=== PATIENT | male | born 1935 | race Caucasian/White ===

== ENCOUNTER 2017-02-15 07:51 | Observation (INO) | payer MEDICARE ==
[~2017-02-15] VITALS: Ht 175.3 cm; Wt 80.7 kg
[~2017-02-15 07:51] MED LIST: ACET-2766 PO; ALBU2.5V4 INH; ALBU8.5H2 INHALATION; ASCO1TAB12 PO; ASPI-973 PO; CALC600T12 PO; CHOL10008 PO; COLC0.6C3 PO; FINA5TAB9 PO; FLUT16SP NS; FOLI0.4T2 PO; HYDR200T PO; LACT1CAP65 PO; LEFL20TA18 PO; LEVO25TA5 PO; LOSA25TA21 PO; MAGN400T4 PO; MUPI1OIN6 TP; MYCO500T3 PO; NYST1POW23 MC; OMEP20CA11 PO; PRD5T PO; PRIM50TA PO; TAMS0.4C98 PO; TIOT4MIS5 IH
[2017-02-15 07:56] VITALS: BP 146/73; PULSE 94; RESP 15; O2SAT 93
--- NOTE | 2017-02-15 07:58 | ED.REPORT ---
HPI-Extremity Problem Lower Date of Service Feb 15, 2017 ED Provider: Nursing Notes Stated Complaint: LEFT ANKLE PAIN Chief Complaint: Extremity Trauma Allergies: Coded Allergies: bacitracin (Unverified Allergy, Unknown, 07/11/16) neomycin (Unverified Allergy, Unknown, 07/11/16) polymyxin B (Unverified Allergy, Unknown, 07/11/16) niacin (Verified Adverse Reaction, Severe, RASH, 07/11/16) Uncoded Allergies: DUST (Allergy, Unknown, 12/03/04) Scheduled Albuterol Neb Soln (Albuterol Neb Soln) 2.5 Mg/3 Ml Vial.neb 3 ML INH BID Ascorbate Calcium/Bioflavonoid (Seda-C 500 mg Tablet) 1 Each Tablet 1 EACH PO DAILY Aspirin (Aspirin) 81 Mg Tablet 81 MG PO HS Calcium Carbonate (Calcium) 600 Mg Tablet 600 MG PO BID Cholecalciferol (Vitamin D3) (Vitamin D3) 1,000 Unit Tab.chew 1,000 UNIT PO DAILY Colchicine (Colchicine) 0.6 Mg Capsule 0.6 MG PO DAILY Finasteride (Finasteride) 5 Mg Tablet 5 MG PO DAILY Fluticasone Propionate (Fluticasone Propionate Nasal) 16 Gm [place].susp 1 SPRAY NS DAILY Folic Acid (Folic Acid) 0.4 Mg Tablet 0.4 MG PO DAILY Hydroxychloroquine Sulfate (Plaquenil) 200 Mg Tablet 200 MG PO BID Hydroxychloroquine Sulfate (Plaquenil) 200 Mg Tablet 200 MG PO BID Leflunomide (Leflunomide) 20 Mg Tablet 20 MG PO DAILY Levothyroxine (Levothyroxine) 25 Mcg Tablet 25 MCG PO DAILY Losartan Potassium (Losartan Potassium) 25 Mg Tablet 25 MG PO DAILY Magnesium Oxide (Magnesium Oxide) 400 Mg Tablet 800 MG PO HS Mupirocin (Mupirocin) 2 % Oin.pf.benji 1 GM TP bid x 10 days Mycophenolate Mofetil (Mycophenolate Mofetil) 500 Mg Tablet 1,000 MG PO BID Nystatin (Nystatin) 1 Each Powder.ea. 1 EACH MC BID Omeprazole (Omeprazole) 20 Mg Capsule.dr 20 MG PO DAILY Prednisone (PredniSONE) 5 Mg Tab 10 MG PO DAILY Primidone (Primidone) 50 Mg Tablet 50 MG PO HS Tamsulosin (Flomax) 0.4 Mg Capsule 0.4 MG PO DAILY Tiotropium [place] (Spiriva Respimat) 1.25 Mcg/Actuation Mist.inhal 2 PUFF IH DAILY Scheduled PRN Acetaminophen (Tylenol Arthritis) 650 Mg Tablet.er 1,300 MG PO q8 hours PRN PRN For Pain Albuterol HFA (Proair HFA) 8.5 Gm Hfa.aer.ad 1-2 PUFFS INHALATION Q4H PRN PRN For Shortness of Breath Lactobacillus Acidophilus (Probiotic) 1 Each Capsule 1 EACH PO DAILY PRN PRN prn General Time Seen by MD: 07:58 Past Medical History Past Medical History 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 He is followed on an every 6 month basis to confirm stability. Rheumatoid arthritis. Bronchiectasis followed by Dr. Orozco. History of dyslipidemia. Vascular stenosis in lower extremities. Actinic keratosis. Leukocytoclastic vasculitis. JOANA on CPAP. Duanes syndrome. skin cancer. Reports: COPD, GERD, Hyperlipidemia Past Surgical History Shoulder repair Mohs surgery Reports: Cataract surgery, Cholecystectomy Reports: Knee replacement Smoking History Never Smoker Social History Alcohol Use: Denies alcohol use Other Social History: Good social support, , Local resident Ambulatory Status Independent Physical Exam Initial Vital Signs Vital Signs (First) Date Time Temp Pulse Resp B/P Pulse Ox O2 Delivery O2 Flow Rate FiO2 02/15/17 07:56 36.9 94 15 146/73 93 Room Air Discharge & Departure Referrals: Leelee Bergeron MD (PCP) Jong Nava MD Feb 15, 2017 07:58
[2017-02-15] MEDS ORDERED: predniSONE 10 mg Tablet PO ONE (08:15)
[2017-02-15] MEDS ORDERED: HYDROcodone-APAP 5-325 mg Tablet PO ONE (08:15)
[2017-02-15 09:07] VITALS: BP 145/63; PULSE 84; RESP 11; O2SAT 93
[2017-02-15] MEDS ORDERED: predniSONE 20 mg Tablet PO ONE (11:00)
[2017-02-15 14:28] VITALS: BP 152/68; PULSE 88; RESP 15; O2SAT 96
--- NOTE | 2017-02-15 15:06 | ED.REPORT ---
HPI-Extremity Problem Lower Date of Service Feb 15, 2017 ED Provider: Jong Nava MD Chris Rubio is an 81-year-old gentleman history of rheumatoid arthritis, peripheral vascular disease, osteoporosis, who presents to the [facility] emergency department via EMS for left ankle pain, increasing severity over the past 24 hours. He states this is similar to previous rheumatoid arthritis flares, which happen occasionally. He recently had a change in his oral prednisone from 10 mg to 7.5mg. He denies any trauma, and is currently unable to bear weight on the ankle. He has not taken anything for the pain. He describes it is extremely painful, citing how he has never come to the hospital for an RA flare before, but this is become unbearable. He states he always feels weak, no new headaches out of the ordinary, no changes in vision, no lightheadedness, dizziness, chest pain, no shortness of breath, no nausea vomiting or diarrhea. No new rashes. No dysuria, states he has the type of catheter in place which allows him to urinate. Nursing Notes Stated Complaint: LEFT ANKLE PAIN Chief Complaint: Extremity Trauma Nursing Notes Reviewed: Yes Allergies: Coded Allergies: bacitracin (Unverified Allergy, Unknown, 07/11/16) neomycin (Unverified Allergy, Unknown, 07/11/16) polymyxin B (Unverified Allergy, Unknown, 07/11/16) niacin (Verified Adverse Reaction, Severe, RASH, 07/11/16) Uncoded Allergies: DUST (Allergy, Unknown, 12/03/04) Scheduled Albuterol Neb Soln (Albuterol Neb Soln) 2.5 Mg/3 Ml Vial.neb 3 ML INH BID Ascorbate Calcium/Bioflavonoid (Seda-C 500 mg Tablet) 1 Each Tablet 1 EACH PO DAILY Aspirin (Aspirin) 81 Mg Tablet 81 MG PO HS Calcium Carbonate (Calcium) 600 Mg Tablet 600 MG PO BID Cholecalciferol (Vitamin D3) (Vitamin D3) 1,000 Unit Tab.chew 1,000 UNIT PO DAILY Colchicine (Colchicine) 0.6 Mg Capsule 0.6 MG PO DAILY Finasteride (Finasteride) 5 Mg Tablet 5 MG PO DAILY Fluticasone Propionate (Fluticasone Propionate Nasal) 16 Gm [place].susp 1 SPRAY NS DAILY Folic Acid (Folic Acid) 0.4 Mg Tablet 0.4 MG PO DAILY Hydroxychloroquine Sulfate (Plaquenil) 200 Mg Tablet 200 MG PO BID Hydroxychloroquine Sulfate (Plaquenil) 200 Mg Tablet 200 MG PO BID Leflunomide (Leflunomide) 20 Mg Tablet 20 MG PO DAILY Levothyroxine (Levothyroxine) 25 Mcg Tablet 25 MCG PO DAILY Losartan Potassium (Losartan Potassium) 25 Mg Tablet 25 MG PO DAILY Magnesium Oxide (Magnesium Oxide) 400 Mg Tablet 800 MG PO HS Mupirocin (Mupirocin) 2 % Oin.pf.benji 1 GM TP bid x 10 days Mycophenolate Mofetil (Mycophenolate Mofetil) 500 Mg Tablet 1,000 MG PO BID Nystatin (Nystatin) 1 Each Powder.ea. 1 EACH MC BID Omeprazole (Omeprazole) 20 Mg Capsule.dr 20 MG PO DAILY Prednisone (PredniSONE) 5 Mg Tab 10 MG PO DAILY Primidone (Primidone) 50 Mg Tablet 50 MG PO HS Tamsulosin (Flomax) 0.4 Mg Capsule 0.4 MG PO DAILY Tiotropium [place] (Spiriva Respimat) 1.25 Mcg/Actuation Mist.inhal 2 PUFF IH DAILY Scheduled PRN Acetaminophen (Tylenol Arthritis) 650 Mg Tablet.er 1,300 MG PO q8 hours PRN PRN For Pain Albuterol HFA (Proair HFA) 8.5 Gm Hfa.aer.ad 1-2 PUFFS INHALATION Q4H PRN PRN For Shortness of Breath Lactobacillus Acidophilus (Probiotic) 1 Each Capsule 1 EACH PO DAILY PRN PRN prn General Time Seen by MD: 07:58 Chief Complaint Other (left ankle pain) Hx Obtained From: Patient Arrived By: Ambulance Onset Occurred: Yesterday Past Medical History Past Medical History 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 He is followed on an every 6 month basis to confirm stability. Rheumatoid arthritis. Bronchiectasis followed by Dr. Orozco. History of dyslipidemia. Vascular stenosis in lower extremities. Actinic keratosis. Leukocytoclastic vasculitis. JOANA on CPAP. Duanes syndrome. skin cancer. Reports: COPD, GERD, Hyperlipidemia Past Surgical History Shoulder repair Mohs surgery Reports: Cataract surgery, Cholecystectomy Reports: Knee replacement Family History Daughter systemic lupus erythematosus, Rheumatoid arthritis, Fibromyalgia Grandmother diabetes mellitus Sister: fibromyalgia, osteoarthritis, spine degeneration, rheumatoid arthritis Smoking History Never Smoker Social History Lives at home with Alcohol Use: Denies alcohol use Other Social History: Good social support, , Local resident Ambulatory Status Independent Review of Systems Complete sys rev & neg: except as marked. Physical Exam Initial Vital Signs Vital Signs (First) Date Time Temp Pulse Resp B/P Pulse Ox O2 Delivery O2 Flow Rate FiO2 02/15/17 07:56 36.9 94 15 146/73 93 Room Air Initial VS: Reviewed General/Constitutional: Well-developed, Well-nourished Head / Eyes: Atraumatic, Normocephalic ENT: Mucous membranes moist, Conjunctiva normal, No scleral icterus Neck: Supple, Non-tender, Full range of motion Respiratory: Breath sounds normal, Clear to auscultation, No respiratory distress Left lower extremity is held in external rotation, left ankle is red, warm, not significantly swollen. Exquisitely tender to palpation circumferentially. Neurovascularly intact distal to left ankle, as well as proximal. Pain with movement passive and active. There are multiple annular lesions to the [place] pretibial area with some coalescence. There are no open wounds, no obvious deformities. Left Ankle: Positive: Erythema present, ROM reduced, Swelling present... (Mild) , Tenderness present... (Severe), Warmth present Cardiovascular: Heart sounds NL, No murmurs, No rubs Heart Rate / Rhythm: Positive: Irregular rhythm (occasional premature beat), Tachycardia Periph CV / BP Differential: Positive: Peripheral pulses 2+ Movement Abnormality: Positive: Essential tremor Gait Abnormality: Positive: Unable to walk Abdomen: Soft, Non-tender, BS normoactive, No distention Organomegaly / Mass / Hernia: Positive: Hernia is reducible, Hernia umbilical Interpretation & Diagnostics Lab Results Interpretation Test 02/15/17 14:35 Hold Purple Top Tube Received (Received) Hold Blue Top Tube Received (Received) Hold [place] Top Tube Received (Received) Re-Eval/Medical Decision Med Decision/Clinical Course Rheumatoid arthritis flare seems more likely than gout flair given history and recent change to medications. Patient was given 15 mg oral prednisone and oral 5-325mg hydrocodone-acetaminophen for inflammation and pain relief. He was given oral water to supplement treatment of his tachycardia, which responded well along with treatment of prednisone and pain medication. Dr. Acuña of rheumatology was consulted, he recommended the patient get an additional 20 mg of oral prednisone. An hour after its administration we attempted weightbearing, patient was unable to move beyond 2 person assist at bedside. Due to the global weakness patient conveys, as well as the remaining pain to his left ankle inhibiting him from ambulating independently or even with an assist device, admission was requested for further treatment of his rheumatoid arthritis flare. Additionally, social work was asked to speak with the patient and family regarding if his needs will be able to be met at home. Consultation #1: Referral / Consult Name: Nicko Acuña MD Police Guard: Will see in office, Agrees with plan Consultation #2: Referral / Consult Name: Bunny Hanks DO Consulted With: Hospitalist Requested Call at: 14:26 Call Returned at: 14:27 Police Guard: Will see patient, Agrees with plan, Accepts admit Discharge & Departure Impression: Primary Impression: Rheumatoid arthritis involving ankle Rheumatoid factor presence: unspecified presence Laterality: left Qualified Code: M06.072 - Rheumatoid arthritis without rheumatoid factor, left ankle and foot Disposition: ADMITTED TO HOSPITAL Discharge Condition All VS Reviewed: Yes Condition: Stable Referrals: Leelee Bergeron MD (PCP) Attending Statement The patient was seen and examined together with Dr. Haley on 02/15/17 and I agree with the history, exam and plan as outlined in the note above. copies to: Leelee Bergeron MD, Noah M DO Feb 15, 2017 08:15 Jong Nava MD Feb 15, 2017 15:21
--- NOTE | 2017-02-15 15:14 | PCM.HPMED ---
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 /pt state L ankle began to swell and they were using bengay without improvement. Pt no longer takes methotrexate which he had taken for years, currently taking Hydroxychloroquine. Recent illness includes UTI with ciprofloxacin whihc he hasnt taken today. Pt reports a medical urologic device called a Spanner - placed 2 wks ago and due for extraction on 02/24 - wiht improved urination. no pain or blood in urine. no current f/c/cp/sob, reports functional baseline with walker ambulation approximately 50 feet before tiring. no hx of gout, no tob/alc/ illicit rx use. does do chair exercises at baseline [facility] he did prior to sx but usually tolerates it without issues. urologist: Fany and PCP - Dr. Bergeron Review of Systems: complete ros within normal limits unless stated in HPI Allergies Coded Allergies: bacitracin (Unverified Allergy, Unknown, 07/11/16) neomycin (Unverified Allergy, Unknown, 07/11/16) polymyxin B (Unverified Allergy, Unknown, 07/11/16) niacin (Verified Adverse Reaction, Severe, RASH, 07/11/16) Uncoded Allergies: DUST (Allergy, Unknown, 12/03/04) Home Medications Scheduled Albuterol Neb Soln (Albuterol Neb Soln) 2.5 Mg/3 Ml Vial.neb 3 ML INH BID Ascorbate Calcium/Bioflavonoid (Seda-C 500 mg Tablet) 1 Each Tablet 1 EACH PO DAILY Aspirin (Aspirin) 81 Mg Tablet 81 MG PO HS Calcium Carbonate (Calcium) 600 Mg Tablet 600 MG PO BID Cholecalciferol (Vitamin D3) (Vitamin D3) 1,000 Unit Tab.chew 1,000 UNIT PO DAILY Colchicine (Colchicine) 0.6 Mg Capsule 0.6 MG PO DAILY Finasteride (Finasteride) 5 Mg Tablet 5 MG PO DAILY Fluticasone Propionate (Fluticasone Propionate Nasal) 16 Gm [place].susp 1 SPRAY NS DAILY Hydroxychloroquine Sulfate (Plaquenil) 200 Mg Tablet 200 MG PO BID Leflunomide (Leflunomide) 20 Mg Tablet 20 MG PO DAILY Levothyroxine (Levothyroxine) 25 Mcg Tablet 25 MCG PO DAILY Losartan Potassium (Losartan Potassium) 25 Mg Tablet 25 MG PO DAILY Magnesium Oxide (Magnesium Oxide) 400 Mg Tablet 800 MG PO HS Mupirocin (Mupirocin) 2 % Oin.pf.benji 1 GM TP bid x 10 days Mycophenolate Mofetil (Mycophenolate Mofetil) 500 Mg Tablet 1,000 MG PO BID Nystatin (Nystatin) 1 Each Powder.ea. 1 EACH MC BID Omeprazole (Omeprazole) 20 Mg Capsule.dr 20 MG PO DAILY Prednisone (PredniSONE) 7.5 Mg Tab 10 MG PO DAILY Primidone (Primidone) 50 Mg Tablet 50 MG PO HS Tiotropium [place] (Spiriva Respimat) 1.25 Mcg/Actuation Mist.inhal 2 PUFF IH DAILY Scheduled PRN Acetaminophen (Tylenol Arthritis) 650 Mg Tablet.er 1,300 MG PO q8 hours PRN PRN For Pain Albuterol HFA (Proair HFA) 8.5 Gm Hfa.aer.ad 1-2 PUFFS INHALATION Q4H PRN PRN For Shortness of Breath Lactobacillus Acidophilus (Probiotic) 1 Each Capsule 1 EACH PO DAILY PRN PRN prn PMH 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 He is followed on an every 6 month basis to confirm stability. Rheumatoid arthritis. Bronchiectasis followed by Dr. Orozco. History of dyslipidemia. Vascular stenosis in lower extremities. Actinic keratosis. Leukocytoclastic vasculitis. JOANA on CPAP. Duanes syndrome. skin cancer. Reports: COPD, GERD, Hyperlipidemia Surgical History Shoulder repair Mohs surgery Reports: Cataract surgery, Cholecystectomy Reports: Knee replacement Family History Daughter systemic lupus erythematosus, Rheumatoid arthritis, Fibromyalgia Grandmother diabetes mellitus Sister: fibromyalgia, osteoarthritis, spine degeneration, rheumatoid arthritis Social History Hx Alcohol Use: No Hx Substance Use: No Hx Tobacco Use: No Smoking Status: Never Smoker Exam Vital Signs Vital Sign - Last Date Time Temp Pulse Resp B/P Pulse Ox O2 Delivery O2 Flow Rate FiO2 02/15/17 14:28 88 15 152/68 96 Room Air 02/15/17 09:07 36.5 Exam Gen.: No acute distress, alert and oriented, pleasant, [place] HEENT: Normocephalic/atraumatic, pupils equal round react to light and accommodation,EOMI, Anicteric sclera, No mucosal ulcerations Neck: No JVD, lymphadenopathy, no thyromegaly Cardiovascular: No rubs clicks murmurs or gallops, regular rate Respiratory: Clear to auscultation bilaterally no wheezes rales or rhonchi, good historian effort GI: Soft, nontender to palpation no masses no hepatosplenomegaly noted no peritoneal signs or rebound tenderness. Extremities: No clubbing cyanosis, L ankle tender/erythematous, warm - pulses intact - notable chronic vasculitis scarring on ppretibial region Neurologic, muscle strength 5 out of 5 in upper and lower extremities bilaterally, creatinine nerves II-12 grossly intact, DTRs 2+ at patellar and brachial radialis and bicipital, sensation intact Psych: Mood appropriate, affect appropriate, no tangential thought or speech Assessment & Plan 81 year old male with a past medical history significant for bronchiectasis, COPD, leukocytoclastic vasculitis, rheumatoid arthritis on methotrexate, JOANA ( on nightly cpap) and monoclonal gammopathy of unknown significance who presented to the ED for worsening left ankle pain x 1 day which is similar to prev RA flares likely precipitated by weaning of prednisone. L ankle - Rheumatoid arthritis flare- likely 2/2 to weaning of prednisone, with wrist pain likely 2/2 to underlying OA and inc stress/pressure from bearing weight d/t ankle pain -on methotrexate, prednisone, now tx with steroid burst of prednisone 40mg daily -bowel regimen - senna, miralax prn -cont hydroxycholorquine -acetaminophen first, then norco 5 if needed with bowel regimen Gastroesophageal reflux disease -omeprazole Osteoarthritis -acetaminophen COPD, bronchiectasis - stable -duoneb q4PRN -cont spiriva BPH -intraurethral device (Spanner) - indwelling catheter - curretnly in place -unsure if taking flomax, will hold for now -cont finasteride Obstructive sleep apnea, CPAP at night -supplemental oxygen at night 2L -respiratory therapy - cpap order ( may bring in pts machine but would ensure cpap available tonight if she's unable) hypothyroidism -cont levothyroxine Chronic Medical Conditions Monoclonal gammopathy of unknown significance -follows with Dr. Brown - no need for tx per recent note hx of shingles Skin cancer (squamous cell carcinoma on head and neck) Peripheral artery disease HTN - cont losartan Pain Evaluation: Adequate Pain Control GI Prophylaxis: H2 shelly VTE Prophylaxis: Sub-Q Heparin (Unfractionated) Resuscitation Status: DNR/DNI:Do Not Resuscitate/Intubate Time spent 50 minutes spent with eval/mgmt and admission Bunny Hanks DO Feb 15, 2017 15:13
[2017-02-15 16:20] VITALS: BP 169/64; PULSE 89; O2SAT 95
[2017-02-15] MEDS ORDERED: TAMS0.4C98 PO (16:30)
[2017-02-15] MEDS ORDERED: Ondansetron 2 mg/mL 2 mL Inj IVPUSH PRN ×2 (16:35)
[2017-02-15] MEDS ORDERED: Polyethylene Glycol (PEG) 17 Gm Powder PO PRN ×2 (16:35)
[2017-02-15] MEDS ORDERED: Alum-Mag Hydrox-Simeth 30 mL Suspension PO PRN ×2 (16:35)
[2017-02-15] MEDS ORDERED: Non-Formulary Medication (Nystatin 1 EACH) MC PRN (16:40)
[2017-02-15] MEDS: Fluticasone 0.05% 15 Spray/2 Gm 16 Gm Nasal Spray NASAL SCH ×2 (16:45→20:45)
[2017-02-15 16:48] LABS: BASOPHILS % (AUTO) 0.2 % (0-3); EOSINOPHILS % (AUTO) 0.2 % (0-5); MONOCYTES % (AUTO) 4.8 % (4-12); Mean Corpuscular Hemoglobin 27.9 pg (27.0-35.0); Mean Corpuscular Volume 89.7 fL (81-100); NEUTROPHILS % (AUTO) 91.8 % (40-74); Platelet Count 147 bil/L (150-400)
--- NOTE | 2017-02-15 16:55 | NUR ---
Admit Pt admitted to floor. Due to left ankle pain, pt cannot bear weight. A&Ox3. C/o a CELESTIN at 12/24. Ankle pain is currently under control if the pt does not move it. Pt given pain medication and dinner ordered. Bed locked in low position and call light within reach. Will continue to monitor.
[2017-02-15 17:07] LABS: APPEARANCE,URINE CLEAR (CLEAR,HAZY); COLOR,URINE STRAW (YELLOW); OCCULT BLOOD,URINE TRACE (NEGATIVE); UROBILINOGEN,URINE NORMAL (NORMAL)
[2017-02-15] MEDS: HYDROcodone-APAP 5-325 mg Tablet PO PRN (17:15)
[2017-02-15 17:25] VITALS: BP 163/89; PULSE 92; RESP 16; O2SAT 93
--- NOTE | 2017-02-15 18:04 | NUR ---
ED SPACE SCHEDULER note: D/A: PT is an 81 year old male with history of rheumatoid arthritis who presents to the ED with increased weakness, ankle pain and inability to ambulate. Pt has been medically evaluated and was slated for admission, however admitting physician requested consult with SPACE SCHEDULER for placement concerns. SPACE SCHEDULER met with pt and his family at bedside. SPACE SCHEDULER explained social work role and discussed both hospital admission and SNF placement if appropriate. Pt has [facility] medicare. Pt has walkers in the home but was unable to utilize them for assistance. Pt has [facility] for RN care however PT has stopped due to lack of progress. Pt has been in [facility] in the past for 6 weeks in July of 2016 which improved his strength and ambulation dramatically. Pt and family interested in SNF placement if available. PT consult was ordered and SNF was recommended. SPACE SCHEDULER requested assistance from medical policy specialist who contacted and provided access to [facility] who have accepted pt for admission tomorrow, 02/16. Insurance authorization to be completed on 02/16. Pt and family unclear who will transport pt at discharge but have been informed of option of cabulance if they are unable to assist and SNF is unable to provide transportation. SPACE SCHEDULER paged red team physician who is aware of plan for discharge to SNF after overnight admission. P: Pt to be admitted to the hospital overnight with placement pending with [facility] for 02/16. medical policy specialist to complete insurance authorization on 02/16. No additional needs identified. Duarte Crowe MSW
[2017-02-15] MEDS: Hydroxychloroqine 200 mg Tablet PO SCH (20:44)
[2017-02-15 22:11] VITALS: BP 138/76; PULSE 89; RESP 16; O2SAT 96
[2017-02-16] MEDS: HYDROcodone-APAP 5-325 mg Tablet PO PRN (01:43)
--- NOTE | 2017-02-16 04:58 | NUR ---
Mobility Pt needed to use the [facility], definitely safer w/ 2pa. Pt will have PT evaluation which will be good, will continue 2PA for OOB.
[2017-02-16 06:22] VITALS: BP 147/72; PULSE 85; RESP 16; O2SAT 94
[2017-02-16 08:08] LABS: BASOPHILS % (AUTO) 0.5 % (0-3); EOSINOPHILS % (AUTO) 2.3 % (0-5); MONOCYTES % (AUTO) 13.5 % (4-12); Mean Corpuscular Hemoglobin 27.6 pg (27.0-35.0); NEUTROPHILS % (AUTO) 68.6 % (40-74); Platelet Count 146 bil/L (150-400)
[2017-02-16] MEDS ORDERED: LEFLUNOMIDE 20 MG PO SCH (08:30)
[2017-02-16] MEDS ORDERED: predniSONE 20 mg Tablet PO SCH (08:30)
[2017-02-16] MEDS ORDERED: Tiotropium 18mcg/Cap 5 Capsule Inhaler Kit INHALATION SCH (08:30)
[2017-02-16] MEDS ORDERED: Heparin 5,000 Unit/mL Inj SUBQ SCH (08:30)
--- NOTE | 2017-02-16 08:59 | NUR ---
[facility] can accept patient with [facility] to follow. Patient had a stay there in July 2016. Called [facility] intake line and let them know patient is here and we would like to have him reviewed for transfer to intermediate today. He is being assigned to a window caser and I will receive a call back. Updated AGENCY DIRECTOR
[2017-02-16 09:00] VITALS: BP 163/79; PULSE 89; RESP 18; O2SAT 95
[2017-02-16] MEDS: Hydroxychloroqine 200 mg Tablet PO SCH (09:07)
--- NOTE | 2017-02-16 09:11 | NUR ---
Case Management: LOPES and Medicare Part D info given and explained to patient at bedside at 8:50 am. No questions at this time. Signed original LOPES placed on hard chart, copy given to ptEDIE Wei RN
[2017-02-16 11:15] VITALS: BP 171/57; PULSE 58
--- NOTE | 2017-02-16 11:18 | PCM.DIMED ---
Discharge Instructions Date of Service Feb 16, 2017 Dates of Hospitalization Feb 15, 2017 at 14:54 Discharge Diagnosis Discharge Diagnosis L ankle - Rheumatoid arthritis flare- likely 2/2 to weaning of prednisone, with wrist pain likely 2/2 to underlying OA and inc stress/pressure from bearing weight d/t ankle pain -NOT on methotrexate, cont prednisone, now tx with steroid burst of prednisone 40mg daily -bowel regimen - senna, miralax prn -cont hydroxycholorquine -acetaminophen first, then norco 5 if needed with bowel regimen Gastroesophageal reflux disease -omeprazole Osteoarthritis -acetaminophen COPD, bronchiectasis - stable -duoneb q4PRN -cont spiriva BPH -intraurethral device (Spanner) - indwelling catheter - curretnly in place -unsure if taking flomax, will hold for now -cont finasteride Obstructive sleep apnea, CPAP at night -supplemental oxygen at night 2L -respiratory therapy - cpap order ( may bring in pts machine but would ensure cpap available tonight if she's unable) hypothyroidism -cont levothyroxine Chronic Medical Conditions Monoclonal gammopathy of unknown significance -follows with Dr. Brown - no need for tx per recent note hx of shingles Skin cancer (squamous cell carcinoma on head and neck) Peripheral artery disease Medication Instructions start prednisone 40mg daily x 3 days and then 20mg x 3 days and then 10mg thereafter Diet Heart Healthy Activity Other (SNF PT/OT) Call your provider Fever or Chills, Shortness of breath, Bleeding, Chest pain Patient Instructions You were treated for a RA flare with increasing prednisone dosing and will be transferred to a rehab center to optimize your strength and mobility Follow-up plan YOu will be followed by a rehab center physician and then plz f/u with your PCP in 1 week after discharge from the rehab center Follow-up Provider: Leelee Bergeron MD Follow-up with PCP in: 1 week (after discharge from rehab center) Bunny Hanks DO Feb 16, 2017 11:18
[2017-02-16] MEDS ORDERED: PRED-508 PO ×2 (11:21→11:32)
[2017-02-16] MEDS ORDERED: PRE10 PO (11:21)
--- NOTE | 2017-02-16 11:30 | PCM.DC.MED ---
Discharge Summary Date of Service Feb 16, 2017 Dates of Hospitalization Date of Hospital Admission Feb 15, 2017 at 14:54 Date of Discharge: Feb 16, 2017 Providers: Admitting Physician: Samantha Hanks DO Primary Care Physician: Leelee Bergeron MD Attending Physician: Samantha Hanks DO Diagnosis at Time of Discharge Diagnosis at Time of Discharge L ankle - Rheumatoid arthritis flare- likely 2/2 to weaning of prednisone, with wrist pain likely 2/2 to underlying OA and inc stress/pressure from bearing weight d/t ankle pain Gastroesophageal reflux disease Osteoarthritis COPD, bronchiectasis - stable BPH -intraurethral device (Spanner) - indwelling catheter - curretnly in place Obstructive sleep apnea, CPAP at night hypothyroidism Chronic Medical Conditions Monoclonal gammopathy of unknown significance -follows with Dr. Brown - no need for tx per recent note hx of shingles Skin cancer (squamous cell carcinoma on head and neck) Peripheral artery disease Consultations none Procedures XRay, CTs & MRIs PROCEDURE: X-RAY CHEST, TWO VIEWS ([id number]) INDICATIONS: COUGH. TECHNIQUE: 2 views of the chest were acquired. COMPARISON: [facility], CT, CT CHEST WO CON, 01/17/2017, 15:43. [facility], CR, XR CHEST 2VW, 12/07/2016, 11:08. [facility], CR, XR CHEST 2VW, 09/28/2016, 11:34. FINDINGS: Surgical changes and devices: None. Lungs and pleura: Prominent interstitial markings are evident within the bilateral infrahilar regions (left greater than right), which has a similar appearance to the most recent CT of the chest dated 01/17/17. No lobar consolidation or pneumothorax is evident. No large pleural effusion is identified. Mediastinum: Mediastinal contours are normal. Heart size is normal. There is aortic atherosclerosis. Bones and chest wall: No suspicious bony abnormalities. Osteopenia and degenerative changes of the spine are noted. Compression deformities within the upper to mid thoracic region are present, which are not new. Soft tissues appear unremarkable. IMPRESSION: Continued bibasilar interstitial prominence (left greater than right) may represent chronic interstitial lung changes. However, atelectasis and/or superimposed pneumonia is difficult to exclude, particularly at the left lung base, and clinical correlation is recommended. Dictated by: Julius Lazo M.D. on 02/10/2017 at 15:18 Approved by: Julius Lazo M.D. 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 /pt state L ankle began to swell and they were using bengay without improvement. Pt no longer takes methotrexate which he had taken for years, currently taking Hydroxychloroquine. Recent illness includes UTI with ciprofloxacin whihc he hasnt taken today. Pt reports a medical urologic device called a Spanner - placed 2 wks ago and due for extraction on 02/24 - wiht improved urination. no pain or blood in urine. no current f/c/cp/sob, reports functional baseline with walker ambulation approximately 50 feet before tiring. no hx of gout, no tob/alc/ illicit rx use. [facility] prior to sx but usually tolerates it without issues. urologist: Fany and PCP - Dr. Bergeron Hospital Course 81 year old male with a past medical history significant for bronchiectasis, COPD, leukocytoclastic vasculitis, rheumatoid arthritis, JOANA (on nightly cpap) and monoclonal gammopathy of unknown significance who presented to the ED for worsening left ankle pain x 1 day which is similar to prev RA flares likely precipitated by weaning of prednisone - kept overnight d/t inability to be cared for at home - anabel to [facility] today L ankle - Rheumatoid arthritis flare- likely 2/2 to weaning of prednisone, with wrist pain likely 2/2 to underlying OA and inc stress/pressure from bearing weight d/t ankle pain -on chronic prednisone, now tx with steroid burst of prednisone 40mg daily -- and taper: start prednisone 40mg daily x 3 days and then 20mg x 3 days and then 10mg thereafter -bowel regimen - senna, miralax prn -cont hydroxycholorquine -acetaminophen first, then norco 5 if needed with bowel regimen Gastroesophageal reflux disease -omeprazole Osteoarthritis -acetaminophen COPD, bronchiectasis - stable -duoneb q4PRN -cont spiriva BPH -intraurethral device (Spanner) - indwelling catheter - curretnly in place -unsure if taking flomax, will hold for now -cont finasteride Obstructive sleep apnea, CPAP at night -supplemental oxygen at night 2L -respiratory therapy - cpap order ( may bring in pts machine but would ensure cpap available tonight if she's unable) hypothyroidism -cont levothyroxine Chronic Medical Conditions Monoclonal gammopathy of unknown significance -follows with Dr. Brown - no need for tx per recent note hx of shingles Skin cancer (squamous cell carcinoma on head and neck) Peripheral artery disease HTN - cont losartan Exam Vital Signs (Last) Date Time Temp Pulse Resp B/P Pulse Ox O2 Delivery O2 Flow Rate FiO2 02/16/17 10:58 Room Air 02/16/17 09:00 36.5 89 18 163/79 95 Exam Gen.: No acute distress, alert and oriented, pleasant, SALAMATOF HEENT: Normocephalic/atraumatic, pupils equal round react to light and accommodation,EOMI, Anicteric sclera, No mucosal ulcerations Neck: No JVD, lymphadenopathy, no thyromegaly Cardiovascular: No rubs clicks murmurs or gallops, regular rate Respiratory: Clear to auscultation bilaterally no wheezes rales or rhonchi, good historian effort GI: Soft, nontender to palpation no masses no hepatosplenomegaly noted no peritoneal signs or rebound tenderness. Extremities: No clubbing cyanosis, L ankle tender/erythematous- medial>lat, warm - pulses intact - notable chronic vasculitis scarring on ppretibial region Neurologic, muscle strength 5 out of 5 in upper and lower extremities bilaterally, creatinine nerves II-12 grossly intact, DTRs 2+ at patellar and brachial radialis and bicipital, sensation intact Psych: Mood appropriate, affect appropriate, no tangential thought or speech Test 02/15/17 14:35 02/15/17 14:58 02/15/17 16:45 02/16/17 07:55 Hold Purple Top Tube Received (Received) Hold Blue Top Tube Received (Received) Hold [place] Top Tube Received (Received) Hold Urine Received (Received) Urine Color Straw (YELLOW) Urine Appearance Clear (CLEAR,HAZY) Urine pH 6.0 (5.0-8.0) Urine Specific [place] 1.005 (1.003-1.035) Urine Protein Negativemg/dL (NEG,TRACE) Urine Glucose (UA) Negativemg/dL (NEGATIVE) Urine Ketones Negativemg/dL (NEGATIVE) Urine Occult Blood Trace (NEGATIVE) Urine Nitrite Negative (NEGATIVE) Urine Bilirubin Negative (NEGATIVE) Urine Urobilinogen Normalmg/dL (NORMAL) Urine Leukocyte Esterase Moderate (NEGATIVE) Urine RBC 0-2/hpf (0-2) Urine WBC 0-5/hpf (0-5) Urine Epithelial Cells None/hpf (NONE-MOD) Urine Crystals None seen (NONE SEEN) Urine Bacteria Few/hpf (NONE-FEW) Urine Hyaline Casts None/lpf (NONE) Urine Granular Casts None seen (NONE SEEN) Urine Waxy Casts None seen (NONE SEEN) Urine Red Blood Cell Casts None seen (NONE SEEN) Urine White Blood Cell Casts None seen (NONE SEEN) Urine Mucus None seen (None Seen) Urine Trichomonas None seen (NONE SEEN) Urine Yeast None (NONE SEEN) Urinalysis Comment None Urine Culture Reflexed Indicated White Blood Count 4.3th/mm3 (3.8-10.1) Red Blood Count 4.10mil/mm3 (4.40-5.80) Hemoglobin 11.3g/dL (13.8-17.2) Hematocrit 36.5% (41.0-50.0) Mean Corpuscular Volume 89.0fL (81-100) Mean Corpuscular Hemoglobin 27.6pg (27.0-35.0) Mean Corpuscular Hemoglobin Concent 31.0% (32.0-37.0) Red Cell Distribution Width 15.3% (12.3-15.4) Platelet Count 146bil/L (150-400) Neutrophils (%) (Auto) 68.6% (40-74) Lymphocytes (%) (Auto) 14.6% (14-46) Monocytes (%) (Auto) 13.5% (4-12) Eosinophils (%) (Auto) 2.3% (0-5) Basophils (%) (Auto) 0.5% (0-3) Sodium Level 136mEq/L (134-144) Potassium Level 3.6mEq/L (3.5-5.2) Chloride Level 101mEq/L (97-108) Carbon Dioxide Level 23mmol/L (18-29) Blood Urea Nitrogen 15mg/dL (8-27) Creatinine 0.85mg/dL (0.76-1.27) Estimat Glomerular Filtration Rate 91mL/min (>59) Glucose Level 92mg/dL (60-99) Calcium Level 8.6mg/dL (8.5-10.1) Total Bilirubin 0.4mg/dL (0.0-1.2) Aspartate Amino Transf (AST/SGOT) 24U/L (0-50) Alanine Aminotransferase (ALT/SGPT) 19U/L (0-44) Alkaline Phosphatase 49U/L (25-160) Total Protein 5.3g/dL (6.4-8.4) Albumin 2.9g/dL (3.4-5.0) Discharge Medications Discharge Medications Albuterol Neb Soln (Albuterol Neb Soln) 2.5 Mg/3 Ml Vial.neb 3 ML INH BID ( Reported) Ascorbate Calcium/Bioflavonoid (Seda-C 500 mg Tablet) 1 Each Tablet 1 EACH PO DAILY (Reported) Aspirin (Aspirin) 81 Mg Tablet 81 MG PO HS (Reported) Calcium Carbonate (Calcium) 600 Mg Tablet 600 MG PO BIDWM (Reported) Cholecalciferol (Vitamin D3) (Vitamin D3) 1,000 Unit Tab.chew 1,000 UNIT PO QAM (Reported) Finasteride (Finasteride) 5 Mg Tablet 5 MG PO QAM (Reported) Fluticasone Propionate (Fluticasone Propionate Nasal) 16 Gm [place].susp 1 SPRAY NS QAM (Reported) Hydroxychloroquine Sulfate (Plaquenil) 200 Mg Tablet 200 MG PO BID (Reported) Leflunomide (Leflunomide) 20 Mg Tablet 20 MG PO QAM (Reported) Levothyroxine (Levothyroxine) 25 Mcg Tablet 25 MCG PO QAM (Reported) Losartan Potassium (Losartan Potassium) 25 Mg Tablet 25 MG PO QAM (Reported) Magnesium Oxide (Magnesium Oxide) 400 Mg Tablet 800 MG PO HS (Reported) Mycophenolate Mofetil (Mycophenolate Mofetil) 500 Mg Tablet 1,000 MG PO BID ( Reported) Omeprazole (Omeprazole) 20 Mg Capsule.dr 20 MG PO QAM (Reported) Prednisone (Deltasone) 20 Mg Tablet 40 MG PO DAILY Prescribed by: SAMANTHA HANKS DO Prednisone (PredniSONE) 10 Mg Tablet 10 MG PO DAILY Prescribed by: SAMANTHA HANKS DO Primidone (Primidone) 50 Mg Tablet 50 MG PO HS (Reported) Tamsulosin (Flomax) 0.4 Mg Capsule 0.8 MG PO HS (Reported) Tiotropium [place] (Spiriva Respimat) 1.25 Mcg/Actuation Mist.inhal 2 PUFF IH QAM (Reported) As needed Acetaminophen (Tylenol Arthritis) 650 Mg Tablet.er 1,300 MG PO q8 hours PRN PRN For Pain (Reported) Albuterol HFA (Proair HFA) 8.5 Gm Hfa.aer.ad 1-2 PUFFS INHALATION Q4H PRN PRN For Shortness of Breath (Reported) Lactobacillus Acidophilus (Probiotic) 1 Each Capsule 1 EACH PO DAILY PRN PRN prn (Reported) Nystatin (Nystatin) 1 Each Powder.ea. 1 EACH MC BID PRN PRN RASH/YEAST (Reported ) Additional med instructions start prednisone 40mg daily x 3 days and then 20mg x 3 days and then 10mg thereafter Followup Plan Follow-up plan YOu will be followed by a rehab center physician and then plz f/u with your PCP in 1 week after discharge from the rehab center Discharge Diet: Heart Healthy Discharge Activity: Other (SNF PT/OT) Patient Instructions You were treated for a RA flare with increasing prednisone dosing and will be transferred to a rehab center to optimize your strength and mobility Follow-up Provider: Leelee Bergeron MD Follow-up with PCP in: 1 week (after discharge from rehab center) Time spent 35 minutes spent with eval and mgmt including discharge. >50% time spent face to face counseling copies to: Leelee Bergeron MD, David DO Feb 16, 2017 11:24
--- NOTE | 2017-02-16 12:53 | NUR ---
Faxed orders and placed copy on chart, [facility] will transport patient at 1330. Updated MEDICAL CLAIMS PROCESSOR
--- NOTE | 2017-02-16 13:18 | NUR ---
[facility] Report given to Kym collins at [facility] Answered all question.
--- NOTE | 2017-02-16 14:18 | NUR ---
Social Work Note - Discharge: D/A: The Pt is an 81 y/o male that was admitted under observation status for RA flair. PT eval completed in ED, recommending SNF. See Initial Assessment completed by ED SUPPLY ANALYST. The Pt has been accepted by [facility] with MD Moreno to follow. Updated PT eval completed, continuing to recommend SNF. SW met with the Pt and family to provide update. Pt and family agreeable. Pt to be picked up at 2:20pm. No needs identified at this time, SW will continue to follow. P: [facility] this afternoon with MD Moreno to follow at 2:20pm. No needs identified at this time, SW will continue to follow. ALEX Cordova Sound Effects Manager ALEX Santiago
--- NOTE | 2017-02-16 14:22 | NUR ---
Dr Javon Rider at MD office called to clarify home dose of cipro Reviewed chart with her. She stated she will call [facility] and update them on MD's plan.
--- NOTE | 2017-02-16 14:55 | NUR ---
Discharge Pt 1 assist transfer to w//cabulance. Aware and ready for discharge. Packet sent with transporter.
== END 2017-02-16 14:55 ==
LOC: SED 07:51 → MOC 14:54
PROVIDERS: ADMIT Internal Medicine; ATTEND Internal Medicine
DX: M06.072 Rheumatoid arthritis without rheumatoid factor, left ankle and foot (principal); J44.9 Chronic obstructive pulmonary disease, unspecified; N40.1 Benign prostatic hyperplasia with lower urinary tract symptoms; R33.8 Other retention of urine; K21.9 Gastro-esophageal reflux disease without esophagitis; M19.039 Primary osteoarthritis, unspecified wrist; G47.33 Obstructive sleep apnea (adult) (pediatric); E03.9 Hypothyroidism, unspecified; D47.2 Monoclonal gammopathy; I73.9 Peripheral vascular disease, unspecified; I10 Essential (primary) hypertension; Z85.828 Personal history of other malignant neoplasm of skin; J47.9 Bronchiectasis, uncomplicated; Z79.52 Long term (current) use of systemic steroids; Z79.82 Long term (current) use of aspirin; Z66 Do not resuscitate; Z96.659 Presence of unspecified artificial knee joint

== ENCOUNTER 2017-03-16 15:33 | Inpatient (IN) | payer MEDICARE ==
[2017-03-16] VITALS (7 sets, daily range): BP systolic 116–166; BP diastolic 48–71; PULSE 82–109; RESP 16–20; O2SAT 91–98
[~2017-03-16] VITALS: Ht 175.3 cm; Wt 83.5 kg
[~2017-03-16 15:33] MED LIST changes: -COLC0.6C3 PO; -FOLI0.4T2 PO; -MUPI1OIN6 TP; -PRD5T PO; +PRE10 PO; +PRED-508 PO
[2017-03-16 15:54] LABS: BASOPHILS % (AUTO) 0.1 % (0-3); EOSINOPHILS % (AUTO) 0.1 % (0-5); MONOCYTES % (AUTO) 6.2 % (4-12); Mean Corpuscular Hemoglobin 27.7 pg (27.0-35.0); Mean Corpuscular Volume 88.7 fL (81-100); NEUTROPHILS % (AUTO) 91.5 % (40-74); Platelet Count 105 bil/L (150-400)
[2017-03-16 16:35] LABS: TROPONIN T 0.1 ug/L (0.0-0.011)
--- NOTE | 2017-03-16 16:39 | DRSVH ---
PROCEDURE: X-RAY CHEST ONE VIEW, PORTABLE ([id number]) INDICATIONS: cough TECHNIQUE: One view of the chest was acquired. COMPARISON: [facility], CR, XR CHEST 2VW, 02/10/2017, 15:39. [facility], C R, XR CHEST 2VW, 12/07/2016, 11:08. FINDINGS: Surgical changes and devices: None. Lungs and pleura: No pleural effusions or pneumothorax. Lungs are clear considering reduced inspira tion. Mediastinum: Mediastinal contours appear normal. Heart size is at or just above the upper limits of normal. Bones and chest wall: No suspicious bony lesions. Overlying soft tissues appear unremarkable. IMPRESSION: Mildly reduced inspiratory volume, heart size at or just above the upper limits of normal . Dictated by: Levi Minaya M.D. on 03/16/2017 at 16:37 Approved by: Levi Minaya M.D. on 03/16/2017 at 16:37
[2017-03-16] MEDS ORDERED: Hydrocortisone 50 mg/mL 2 mL Inj IVPUSH ONE (17:05)
[2017-03-16] MEDS ORDERED: Piperacillin-Tazo 3.375 Gm Inj 3.375 GM in Dextrose 5% Minibag Plus 50 ML IV ONE (17:05)
[2017-03-16] MEDS ORDERED: Vancomycin Dose per Pharmacist XX ONE (17:05)
--- NOTE | 2017-03-16 17:18 | ED.REPORT ---
HPI-Dyspnea / Wheezing Date of Service March 16, 2017 ED Provider: Jess Roca MD History of Present Illness: Patient is a pleasant 81-year-old gentleman with history of rheumatoid lung disease, chronic obstructive pulmonary disease, rheumatoid arthritis, gastroesophageal reflux disease, hyperlipidemia, with arthritis, benign prostatic hypertrophy, hypothyroidism, obstructive sleep apnea on CPAP at night, and hypertension who presents to [facility] emergency Department complaining of increased dyspnea and weakness. Patient just got discharged from [facility] 2 weeks ago where he was placed after his last hospitalization in February for left ankle pain and swelling. Patient has home health and physical therapy from [place]. Patient has been seen on Tuesday, just 2 days ago by his primary care provider, Dr. Bergeron. He has been checked by the nurse this morning and she noticed he was febrile with increased crackles in his lungs. His also states that he has been running a fever of 101F since Tuesday. Associated symptoms include increased shortness of breath, weakness, decreased appetite. Home health nurse recommended him to be seen by urgent care or emergency room department today so the family made a decision to bring him to emergenct department. Nursing Notes Stated Complaint: SOB Chief Complaint: Respiratory Complaints Allergies: Coded Allergies: bacitracin (Unverified Allergy, Unknown, 02/15/17) ciprofloxacin (Verified Allergy, Unknown, 03/16/17) neomycin (Unverified Allergy, Unknown, 02/15/17) polymyxin B (Unverified Allergy, Unknown, 02/15/17) niacin (Verified Adverse Reaction, Severe, RASH, 02/15/17) Uncoded Allergies: DUST (Allergy, Unknown, 12/03/04) Scheduled Albuterol Neb Soln (Albuterol Neb Soln) 2.5 Mg/3 Ml Vial.neb 3 ML INH BID Ascorbate Calcium/Bioflavonoid (Seda-C 500 mg Tablet) 1 Each Tablet 1 EACH PO DAILY Aspirin (Aspirin) 81 Mg Tablet 81 MG PO HS Calcium Carbonate (Calcium) 600 Mg Tablet 600 MG PO BIDWM Cholecalciferol (Vitamin D3) (Vitamin D3) 1,000 Unit Tab.chew 1,000 UNIT PO QAM Finasteride (Finasteride) 5 Mg Tablet 5 MG PO QAM Fluticasone Propionate (Fluticasone Propionate Nasal) 16 Gm [place].susp 1 SPRAY NS QAM Hydroxychloroquine Sulfate (Plaquenil) 200 Mg Tablet 200 MG PO BID Leflunomide (Leflunomide) 20 Mg Tablet 20 MG PO QAM Levothyroxine (Levothyroxine) 25 Mcg Tablet 25 MCG PO QAM Losartan Potassium (Losartan Potassium) 25 Mg Tablet 25 MG PO QAM Magnesium Oxide (Magnesium Oxide) 400 Mg Tablet 800 MG PO HS Mycophenolate Mofetil (Mycophenolate Mofetil) 500 Mg Tablet 1,000 MG PO BID Omeprazole (Omeprazole) 20 Mg Capsule.dr 20 MG PO QAM Prednisone (PredniSONE) 2.5 Mg Tab 7.5 MG PO DAILY Primidone (Primidone) 50 Mg Tablet 50 MG PO HS Tamsulosin (Flomax) 0.4 Mg Capsule 0.8 MG PO HS Tiotropium [place] (Spiriva) 18 Mcg Cap.w.dev 2 PUFFS INHALATION QAM Scheduled PRN Acetaminophen (Tylenol Arthritis) 650 Mg Tablet.er 1,300 MG PO q8 hours PRN PRN For Pain Albuterol HFA (Proair HFA) 8.5 Gm Hfa.aer.ad 1-2 PUFFS INHALATION Q4H PRN PRN For Shortness of Breath Nystatin (Nystatin) 1 Each Powder.ea. 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 He is followed on an every 6 month basis to confirm stability. Rheumatoid arthritis. Bronchiectasis followed by Dr. Orozco. History of dyslipidemia. Vascular stenosis in lower extremities. Actinic keratosis. Leukocytoclastic vasculitis. JOANA on CPAP. Duanes syndrome. skin cancer. Reports: COPD, GERD, Hyperlipidemia Past Surgical History Shoulder repair Mohs surgery Reports: Cataract surgery, Cholecystectomy Reports: Knee replacement Family History Daughter systemic lupus erythematosus, Rheumatoid arthritis, Fibromyalgia Grandmother diabetes mellitus Sister: fibromyalgia, osteoarthritis, spine degeneration, rheumatoid arthritis Smoking History Never Smoker Social History Lives at home with Alcohol Use: Denies alcohol use Other Social History: Good social support, , Local resident Ambulatory Status Independent Review of Systems Review of Systems Note: A comprehensive review of systems has been conducted with the patient was found to be negative except what is mentioned in history of present illness. Physical Exam Initial Vital Signs Vital Signs (First) Date Time Temp Pulse Resp B/P Pulse Ox O2 Delivery O2 Flow Rate FiO2 03/16/17 15:42 37.4 109 20 166/67 91 Room Air 03/16/17 15:49 2 Initial VS: Reviewed Head / Eyes: Atraumatic, Normocephalic, PERRL ENT: Mucous membranes moist, Conjunctiva normal Abdomen / GI: Soft, Non-tender, No distention Extremities: No swelling ( ) Skin: Warm, Dry (well perfused) Neurologic: Alert, Oriented, Nonfocal Psychiatric: Mood/affect normal General/Constitutional: Awake, Alert, Cooperative Appearance / Presentation: Positive: Frail Neck: Supple, No adenopathy, No JVD, No tracheal deviation Wheezing / Retractions: Positive: Wheezing mild (throughout bilateral posterior lung zaman, no rhonchi) Cardiovascular: Regular rhythm, No murmurs Skin: Warm, Dry, No swelling Color / Condition: Positive: Lesion present... (dermal chronic scarring, descrete papules with central clearing, LLE; no signs with cellulitis) Interpretation & Diagnostics Lab Results Interpretation Result Diagram: 03/16/17 1515 03/16/17 1515 Test 03/16/17 15:15 03/16/17 17:50 White Blood Count 8.7th/mm3 (3.8-10.1) Red Blood Count 4.41mil/mm3 (4.40-5.80) Hemoglobin 12.2g/dL (13.8-17.2) Hematocrit 39.1% (41.0-50.0) Mean Corpuscular Volume 88.7fL (81-100) Mean Corpuscular Hemoglobin 27.7pg (27.0-35.0) Mean Corpuscular Hemoglobin Concent 31.2% (32.0-37.0) Red Cell Distribution Width 16.8% (12.3-15.4) Platelet Count 105bil/L (150-400) Neutrophils (%) (Auto) 91.5% (40-74) Lymphocytes (%) (Auto) 1.6% (14-46) Monocytes (%) (Auto) 6.2% (4-12) Eosinophils (%) (Auto) 0.1% (0-5) Basophils (%) (Auto) 0.1% (0-3) Hold Purple Top Tube Received (Received) Hold Blue Top Tube Received (Received) Sodium Level 134mEq/L (134-144) Potassium Level 4.1mEq/L (3.5-5.2) Chloride Level 96mEq/L (97-108) Carbon Dioxide Level 20mmol/L (18-29) Blood Urea Nitrogen 25mg/dL (8-27) Creatinine 1.01mg/dL (0.76-1.27) Estimat Glomerular Filtration Rate 75mL/min (>59) Glucose Level 153mg/dL (60-99) Calcium Level 9.1mg/dL (8.5-10.1) Total Bilirubin 1.1mg/dL (0.0-1.2) Aspartate Amino Transf (AST/SGOT) 39U/L (0-50) Alanine Aminotransferase (ALT/SGPT) 31U/L (0-44) Alkaline Phosphatase 71U/L (25-160) Troponin T 0.100ug/L (0.0-0.011) Pro-B-Type Natriuretic Peptide 1226pg/mL (0-486) Total Protein 6.3g/dL (6.4-8.4) Albumin 3.1g/dL (3.4-5.0) Hold [place] Top Tube Received (Received) Lactic Acid Level 1.5mmol/L (0.4-2.0) Procalcitonin 1.17ng/mL (0.00-0.08) ECG Interpretation Interpreted by: ED physician Abnormal Rate: 100 Rhythm / Conduction: Tachycardia, Ectopic beats - PAC's, Ectopic beats - PVC 's CBC Interpretation Hgb low, Platelets low, Differential left shift BMP / CMP Interpretation Glucose elevated Cardiac / Vascular Interp BNP elevated (1226), Troponin abnormal (0.100 (baseline 0.050)) X-Ray Chest Interpretation Chest Xray Interpretation: Mildly reduced inspiratory volume, heart size at or just above the upper limits of normal. Interpretation / Wet Read by: Interpret - Radiologist (Levi Minaya M.D. on 03/16/2017 at 16:37 ) Re-Eval/Medical Decision Med Decision/Clinical Course 81-year-old male with underlying COPD and rheumatoid lung disease chronically on prednisone 7.5 mg currently daily, presents with increased dyspnea, cough, overall weakness and fever of 101F x 3 days. Concern for possible sepsis either from pneumonia or probable urinary tract infection. Patient reports a history of UTI treated with ciprofloxacin last month and history of urologic device called Spanner removed last month as well. There is also concern for fluid overload so the decision was made to use neither normal saline for hydration nor diuretics at that time. Concern for possible NSTEMI, patient's troponin and proBNP are elevated compared to his baseline. However patient is currently asymptomatic. In the emergency room patient received a stress dose of hydrocortisone 100 mg IV, Lovenox 100 mg subq due to elevated troponin and concern for an STEMI. He was started on vancomycin and piperacillin/tazobactam due to concern for hospital-acquired pneumonia and/or urinary tract infection. Consultation : Consulted With: Hospitalist Call Returned at: 17:28 Cold Roll Inspector: Will see patient, Agrees with plan, Accepts admit Note: Talked to hospitalist, Dr. Gonzalez. He agreed with suggested assessment and plan. No additional recommendations given. He will see the patient for admission. Discharge & Departure Impression: Primary Impression: Shortness of breath Additional Impressions: Pneumonia Bronchiectasis NSTEMI (non-ST elevated myocardial infarction) CHF (congestive heart failure) Failure to thrive Disposition: ADMITTED TO HOSPITAL Discharge Condition All VS Reviewed: Yes Condition: Stable Referrals: Leelee Bergeron MD (PCP) Attending Statement Patient seen and examined with Dr. Maxwell. Failure to thrive with recurrent admissions. History of bronchiectasis at this point he does have a more productive cough however does not look like a fully infiltrative pneumonia on chest x-ray. He does have mild fluid overload. We will opt to treat for community-acquired pneumonia however because of the volume overload and congestive heart failure concerns will not give any additional fluids at this point. Because of the concerns for sepsis will not add diuretics. He is given Lovenox due to the elevated troponin and this will need to be trended. Agree with remainder of assessment and plan as above copies to: Leelee Bergeron MD, Oksana S DO March 16, 2017 17:18 Jess Roca MD March 16, 2017 18:28
[2017-03-16] MEDS ORDERED: PRD2.5T PO (17:41)
[2017-03-16] MEDS ORDERED: TIOT18CA3 INHALATION (17:41)
[2017-03-16] MEDS ORDERED: Ondansetron 2 mg/mL 2 mL Inj IVPUSH PRN (17:50)
[2017-03-16] MEDS ORDERED: Polyethylene Glycol (PEG) 17 Gm Powder PO PRN (17:50)
[2017-03-16] MEDS ORDERED: Alum-Mag Hydrox-Simeth 30 mL Suspension PO PRN (17:50)
[2017-03-16] MEDS ORDERED: Vancomycin Inj 1,500 MG in 0.9% Sodium Chloride 500 ML IV ONE (18:00)
--- NOTE | 2017-03-16 19:46 | PCM.HPMED ---
Subjective Date of Service March 16, 2017 Primary Provider: Admitting Physician: Eddie Gonzalez MD Primary Care Physician: Leelee Bergeron MD Attending Physician: Eddie Gonzalez MD Admit Status: From the Emergency Department Chief Complaint: Productive cough w/increasing SOB History of Present Illness: Patient is an 81-year-old male with a history of COPD w/chronic cough, rheumatoid arthritis on immunosuppressive therapy, peripheral artery disease, and leukocytoclastic vasculitis who presented to the ED with the complaint of worsening shortness of breath and productive cough for the past 2-3 days. Associated symptoms include subjective fevers, post-tussive emesis, and generalized weakness. Of note, the patient was discharged from [facility] two weeks ago and his states that she has been fighting a cold. He was discharged from [facility] to [facility] on 02/16/17 following admission for left ankle pain that was attributed to rheumatoid arthritis flare. Per the patient and his he was was doing quite well following discharge from [facility] and saw his PCP just two days ago where he was given "a clean bill of health". Home health services reportedly noted a temperature >100F and tachycardia so recommended the patient visit Urgent Care or the ED. Patient reports pain with coughing but denies chest pressure, palpitations or chest pain. He states that his cough is productive for white/clear sputum and he denies hemoptysis. He also states that he has a decreased appetite but he attributes this to his loss of smell and is appetite at baseline per his . He denies abdominal pain, diarrhea, constipation, bloody or dark stools, dizziness, headaches. In the ED vitals: temp 37.4, BP 166/67, HR 109, RR 20, SpO2 91% on room air; labs wbc 8.7, Hb 12.1, Hct 39.1, plts 105, sodium 134, potassium 4.1, chloride 96, bicarb 20, BUN 25, creatinine 1.01, glucose 153, lactic aicd 1.5, troponin 0.100, proBNP 1226, procalcitonin 1.17. EKG sinus rhythm with occasional PVCs noted, no acute ischemic changes. Chest xray mildly reduced inspiratory volume, heart size at or just above the upper limits of normal. He was given a stress dose of hydrocortisone 100mg IV, Lovenox 100 mg subq due to elevated troponin and concern for an STEMI. He was started on vancomycin and piperacillin/tazobactam due to concern for hospital-acquired pneumonia and/or urinary tract infection. Concern for fluid overload and IV fluids held at this time. Blood cultures, respiratory viral panel, legionella antigen, urine Strep pneumo antigen and MRSA screen pending. Review of Systems: A comprehensive review of systems was conducted with the patient and found to be negative except as above in the History of Present Illness. Allergies Coded Allergies: bacitracin (Unverified Allergy, Unknown, 02/15/17) ciprofloxacin (Verified Allergy, Unknown, 03/16/17) neomycin (Unverified Allergy, Unknown, 02/15/17) polymyxin B (Unverified Allergy, Unknown, 02/15/17) niacin (Verified Adverse Reaction, Severe, RASH, 02/15/17) Uncoded Allergies: DUST (Allergy, Unknown, 12/03/04) PMH Leukocytoclastic vasculitis Rheumatoid arthritis- on methotrexate, prednisone Monoclonal gammopathy of unknown significance Shingles Skin cancer (squamous cell carcinoma on head and neck) COPD, bronchiectasis Hyperlipidemia Peripheral artery disease Osteoarthritis Gastroesophageal reflux disease Obstructive sleep apnea, CPAP at night Chronic nonproductive cough Presbyopia Actinic keratosis Vitamin D deficiency Surgical History Right shoulder repair Left knee replacement Cholecystectomy Cataract b/l Achilles Family History Overall noncontributory: skin cancers, daughter with rheumatoid arthritis, fibromyalgia and systemic lupus erythematous. 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 Exam Vital Signs Vital Sign - Last Date Time Temp Pulse Resp B/P Pulse Ox O2 Delivery O2 Flow Rate FiO2 03/16/17 17:30 101 16 136/48 97 Nasal Cannula 2 03/16/17 15:42 37.4 Exam General: No acute distress, well-developed, well-nourished, appropriately interactive HEENT: Normocephalic, atraumatic. External ears without defect. Pupils equal, round, and reactive to light and accommodation. Anicteric sclerae, moist mucosa. Neck: Supple with full range of motion. No jugular venous distension. No bruits. No lymphadenopathy or thyromegaly. Cardiovascular: Regular rate and rhythm with no murmurs, rubs, or gallops appreciated Pulmonary: normal respiratory effort with mild wheezing bilaterally, no rhonchi. Abdomen: Bowel tones present. Soft, nontender, nondistended. No hepatosplenomegaly or masses appreciated. Extremities: No clubbing, cyanosis, edema, or lymphadenopathy appreciated. Skin: Normal temperature, turgor, and texture; diffuse scarring of LLE secondary to vasculitis, no evidence consistent with cellulitis. Neurological: Cranial nerves grossly intact. Normal muscle strength, tone, and bulk. Psychiatric: Normal mood and affect. Alert and oriented to person, place, and time. Lab and Diagnostics Labs Laboratory Tests Test 03/16/17 15:15 03/16/17 17:50 White Blood Count 8.7th/mm3 (3.8-10.1) Red Blood Count 4.41mil/mm3 (4.40-5.80) Hemoglobin 12.2g/dL (13.8-17.2) Hematocrit 39.1% (41.0-50.0) Mean Corpuscular Volume 88.7fL (81-100) Mean Corpuscular Hemoglobin 27.7pg (27.0-35.0) Mean Corpuscular Hemoglobin Concent 31.2% (32.0-37.0) Red Cell Distribution Width 16.8% (12.3-15.4) Platelet Count 105bil/L (150-400) Neutrophils (%) (Auto) 91.5% (40-74) Lymphocytes (%) (Auto) 1.6% (14-46) Monocytes (%) (Auto) 6.2% (4-12) Eosinophils (%) (Auto) 0.1% (0-5) Basophils (%) (Auto) 0.1% (0-3) Hold Purple Top Tube Received (Received) Hold Blue Top Tube Received (Received) Sodium Level 134mEq/L (134-144) Potassium Level 4.1mEq/L (3.5-5.2) Chloride Level 96mEq/L (97-108) Carbon Dioxide Level 20mmol/L (18-29) Blood Urea Nitrogen 25mg/dL (8-27) Creatinine 1.01mg/dL (0.76-1.27) Estimat Glomerular Filtration Rate 75mL/min (>59) Glucose Level 153mg/dL (60-99) Calcium Level 9.1mg/dL (8.5-10.1) Total Bilirubin 1.1mg/dL (0.0-1.2) Aspartate Amino Transf (AST/SGOT) 39U/L (0-50) Alanine Aminotransferase (ALT/SGPT) 31U/L (0-44) Alkaline Phosphatase 71U/L (25-160) Troponin T 0.100ug/L (0.0-0.011) Pro-B-Type Natriuretic Peptide 1226pg/mL (0-486) Total Protein 6.3g/dL (6.4-8.4) Albumin 3.1g/dL (3.4-5.0) Hold [place] Top Tube Received (Received) Result Diagram: 03/16/17 1515 03/16/17 1515 X-Rays, CTs and MRIs X-RAY CHEST ONE VIEW, PORTABLE IMPRESSION: Mildly reduced inspiratory volume, heart size at or just above the upper limits of normal. Dictated by: Levi Minaya M.D. on 03/16/2017 at 16:37 Approved by: Levi Minaya M.D. on 03/16/2017 at 16:37 Assessment & Plan 81y/o male with a history of COPD w/chronic cough, rheumatoid arthritis on leflunomide and prednisone, peripheral artery disease, and leukocytoclastic vasculitis who presented to the ED with the complaint of worsening shortness of breath and persistent productive cough for the past 2-3 days. Admitted for further evaluation and management of probable pneumonia and concern for NSTEMI. 1. Probable pneumonia, acute. present on admission. Active. -Community acquired vs hospital-acquired. [facility] admission on 02/16/16. Discharged home from [facility] two weeks ago. Presents w/2 day hx of productive cough and worsening dyspnea. -Hx of rheumatoid arthritis w/interstitial lung disease on chronic immunosuppressive therapy. -Received stress dose of hydrocortisone 100mg IV, and started on vancomycin/ zosyn in the ED. -Lactic acid 1.5, wbc wnl but unreliable due to immunosuppression. -Blood cultures, respiratory viral panel, legionella antibody, urine Strep pneumo antigen and MRSA screen pending. -IV fluids held on admission out of concern for fluid overload and patient hemodynamically stable. -Procalcitonin 1.17. Will continue broad spectrum antibiotics overnight and repeat procalcitonin in the morning. -Consult Infectious disease given patient's immunosuppression -Duonebs prn 2. Concern for NSTEMI, acute. present on admission. Active -Patient with chronically elevated troponin with apparent baseline 0.05. He remains asymptomatic without acute ischemic changes noted on EKG. -Initial troponin > baseline. Will trend. -Consider consult to Cardiology if troponins continue to rise. 3. Possible CHF, present on admission. Active. -Most recent Echo in Sep showed an EF of 55-60%. Patient denies prior diagnosis of CHF. -Clinically appears mildly fluid overloaded and proBNP elevated on admission at 1226. -Monitor clinically, hold diuresis for now. -Consider echocardiogram 4. Rheumatoid arthritis, chronic. present on admission, ongoing -Home regimen: prednisone 7.5mg po daily, leflunomide 20mg daily, hydroxychloroquine 200mg, mycophenolate 1,000mg bid -received stress dose of hydrocortisone in the ED. -continue home medications 5. Hypertension, chronic. present on admission. ongoing -continue home medications 6. Hyperlipidemia, chronic. present on admission. ongoing. -continue home statin 7. Obstructive sleep apnea, chronic. present on admission, ongoing - home CPAP 8. History of GERD, chronic. present on admission, ongoing - outpatient omeprazole converted to pantoprazole PRN: Acetaminophen-fever/headache/mild/moderate pain Antiemetics, as needed Bowel regimen, as needed. Disposition: Patient admitted under inpatient status with expected length of stay > 2 midnights for severity of present symptoms, complexities of treatment plan and risk for adverse event. Pain Evaluation: Adequate Pain Control VTE Mechanical Devices: Intermittant Pneumatic CD Resuscitation Status: DNR/DNI:Do Not Resuscitate/Intubate Attending Statement The patient was seen and examined together with Dr. Rangel on 03/16/2017 and I agree with the history, exam and plan as outlined in the note above. . Hilda Rangel DO March 16, 2017 17:52 Eddie Gonzalez MD March 17, 2017 19:39
[2017-03-16] MEDS ORDERED: Albuterol 1.25 mg/3 mL Inhalation Solution NEB PRN (19:55)
[2017-03-16] MEDS: Hydroxychloroqine 200 mg Tablet PO SCH (21:10)
[2017-03-16 21:33] LABS: APPEARANCE,URINE HAZY (CLEAR,HAZY); COLOR,URINE DARK YELLOW (YELLOW); OCCULT BLOOD,URINE MODERATE (NEGATIVE); PH,URINE 5.5 (5.0-8.0)
[2017-03-16 21:34] LABS: UROBILINOGEN,URINE NORMAL (NORMAL)
[2017-03-16] MEDS: Albuterol-Ipratropium 3 mL Inhalation Solution NEB SCH (21:55)
[2017-03-17] VITALS (11 sets, daily range): BP systolic 103–140; BP diastolic 67–74; PULSE 71–108; RESP 16–24; O2SAT 94–99
[2017-03-17 02:38] LABS: BASOPHILS % (AUTO) 0.1 % (0-3); EOSINOPHILS % (AUTO) 0.1 % (0-5); MONOCYTES % (AUTO) 9.2 % (4-12); Mean Corpuscular Hemoglobin 27.9 pg (27.0-35.0); Mean Corpuscular Volume 88.6 fL (81-100); NEUTROPHILS % (AUTO) 86.1 % (40-74)
[2017-03-17 02:51] LABS: Platelet Count 76 bil/L (150-400)
[2017-03-17 03:33] LABS: TROPONIN T 0.08 ug/L (0.0-0.011)
--- NOTE | 2017-03-17 05:30 | NUR ---
Admit: Admit completed in ER prior to arrival. Pt placed on droplet precautions, PCR positive for Rhinovirus- Dr. Lees aware. Pt placed on tele showing SR with PAC, PVCs. Sp02 high 90s on 2 L NC. monitored via TERMINAL SYSTEM OPERATOR. Pt states he normally uses CPAP at night, asked pt to ask to bring in home CPAP today. Pt resting comfortably overnight, Vitals stable- Tylenol given x1 for mild headache with good results. pt notified that we do not carry Leflunomide and states he told his to bring in his home dose today.
[2017-03-17] MEDS: Pantoprazole 20 mg ER24 Tablet PO SCH (06:04)
[2017-03-17] MEDS ORDERED: Piperacillin-Tazo 3.375 Gm Inj 3.375 GM in Dextrose 5% Minibag Plus 50 ML IV ONE (07:10)
[2017-03-17] MEDS: Hydroxychloroqine 200 mg Tablet PO SCH ×2 (07:46→20:47)
[2017-03-17] MEDS: Albuterol-Ipratropium 3 mL Inhalation Solution NEB SCH ×4 (08:11→20:54)
[2017-03-17] MEDS ORDERED: Vancomycin Dose per Pharmacist XX SCH (08:30)
[2017-03-17] MEDS ORDERED: Vancomycin Inj 1,000 MG in IV Premix 1 EACH IV SCH (08:30)
[2017-03-17] MEDS ORDERED: Piperacillin-Tazo 3.375 Gm Inj 3.375 GM in Dextrose 5% Minibag Plus 50 ML IV SCH ×2 (08:30→16:30)
--- NOTE | 2017-03-17 11:00 | CONS ---
[address] [address] CONSULTATION REPORT PATIENT: TERENCE BRUNO : 1935 MR#: [id number] ADMIT: 03/16/2017 JOB ID: [id number] DATE OF SERVICE: 03/17/[address] Rangel for this timely consult. REASON FOR CONSULTATION: Possible pulmonary infection in an immunosuppressed gentleman with underlying rheumatoid arthritis, pulmonary fibrosis and leukocytoclastic vasculitis. HISTORY OF PRESENT ILLNESS: The patient is an 81-year-old gentleman is well known to me from an admission late last summer. At that time, he had a chronic leukocytoclastic vasculitis changes on his legs, but then suffered a very severe left lower extremity zoster, which was superimposed and mixed with his leukocytoclastic vasculitis and possibly some underlying cellulitis. The patient eventually recovered from that complex problem and has been in his usual state of health until fairly recently. The patient reports that over the weekend, he was feeling great and just on or about March 14 or , he developed the fairly abrupt onset of shortness of breath, increased cough and some subjective fever. This was all associated with some nausea, vomiting and generalized malaise. Interestingly, the patient relates that his had a respiratory tract illness just before the onset of his symptoms. Up until that time, the patient says he would be doing steadily better with respect to rehab for his multiple medical problems and generalized debility. Just a couple days before this admission on March 16, he reports that he had seen Dr. Bergeron, his primary care physician, and was noted to be doing extremely well. Since admission, the patient notes that his cough is already somewhat improved. He is no longer having fevers and his nausea has essentially resolved. It has been noted however that he has an elevated procalcitonin as well as a nasal smear positive for MRSA and for that reason ID was consulted regarding the possibility of a significant pulmonary or other infection. This morning the patient states he is feeling is something fairly close to his normal state of health. He no longer has fever or chills and denies any ongoing cough or shortness of breath beyond his baseline. No chest pain. No additional nausea, no vomiting, no diarrhea. The patient has been receiving vancomycin and Zosyn empirically since his admission. PAST MEDICAL HISTORY: 1. Leukocytoclastic vasculitis. 2. Rheumatoid arthritis. 3. 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 4. Monoclonal gammopathy of unknown significance. 5. COPD. 6. Bronchiectasis. 7. Peripheral arterial disease. 8. GERD. 9. Multiple actinic keratoses. 10. History of severe zoster involving the loss of left lower extremity last June/July. 11. Essential tremor. SOCIAL HISTORY: The patient hails from [place]. He moved to [facility] and went to [facility] [employer] [facility] in [place]. 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 No recent travel though in the past he and his have traveled to [place]. No family history of tuberculosis. The patient is a nonsmoker, nondrinker. FAMILY HISTORY: Negative. First and second-degree relatives for TB. REVIEW OF SYSTEMS: Done. Today, the patient states he has no significant headache. No visual change. No sore throat or sores in the mouth. He does note that he has considerable nasal congestion and stuffiness and drainage, but it is actually starting to improve. He did have increased cough and shortness of breath two of three days ago which led to this admission but that is essentially resolved. At this point he has minimal cough and shortness of breath which is his baseline. No nausea, vomiting or diarrhea though he did have nausea and vomiting prior to admission. No dysuria, urgency or frequency. He notes that he has a chronic rash on his lower extremities which is biopsy proven to be due to leukocytoclastic vasculitis and it has not changed and in fact is quite quiescent recently. The impressive scabs which covered his whole left leg when he is admitted here back in June, have completely dropped off and resolved. The patient notes he can walk short distances though he is somewhat limited in standing and walking by severe degenerative back pain. Remainder of the review of systems is negative. PHYSICAL EXAMINATION: Reveals an afebrile gentleman, temp 35.8, pulse 82, respiratory rate 18, blood pressure 140/72, saturating 97% on room air. The patient is in absolutely no respiratory distress. He is sitting up, smiling and looks much better than when I last saw him back in July. Head without trauma. 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 Oral cavity without thrush, hairy leukoplakia or pharyngitis. He does not have sinus tenderness. His neck is supple without adenopathy. His lungs notable for some fine crackles in both lung zaman, not changed from prior exams many months ago. Cardiac tones are regular rate and rhythm without significant murmur. Abdomen: Soft and nontender without organomegaly. Does not have a Carmichael catheter. Examination of extremities shows a little evidence of active synovitis at this point. The patient does have a macular bronze like, somewhat flaky macular rash, which covers both lower extremities from about the mid yuen on down to the feet. This is more noticeable on the left lower extremity and is much, much improved over what it looked like back in June/July 2016. The patient has peripheral pulses that are intact though diminished on the left side. His extremities are warm and well perfused. There is no significant edema of the lower extremities. No skin rash noted on the upper torso. Mental status as mentioned is quite normal today. LABORATORIES: Include white count 10,000, platelet 76,000. Creatinine 0.96. LFTs are normal. Procalcitonin was 1.17 yesterday; it was 1.79 today. Urinalysis without white cells. Serologies from this admission include just negative urine Legionella antigen. Back in 2015 we did a lot of serologies including negative Fungitell, negative Cryptococcal antigen, negative urine histo antigen, and an indeterminate QuantiFERON Gold. Galactomannan was negative. Micro studies include positive nasal MRSA swab, blood cultures that are negative and respiratory viral PCR panel which is positive for rhinovirus/enterovirus. The urine is growing gram-negative pavan that recall he has no white cells and he has no dysuria. On looking back at prior micro back in February during a brief visit here, he had a urine that grew MRSA. Going back further to July, we had multiple negative sputum samples, which were negative for TB by smear culture and PCR excluding the diagnosis of TB. We also had a lung "aspirate" that was negative by PCR for any mycobacteria. IMAGING: From this admission includes a chest x-ray, which I carefully reviewed on the computer. It shows minimally decreased inspiratory volume but no infiltrate. We also reviewed a CT scan that was done two months ago and shows some lower lobe bilateral nodular ground-glass opacities, which is thought to be his rheumatoid lung. IMPRESSION: This elderly gentleman with multiple medical problems, including rheumatoid arthritis and rheumatoid lung is admitted with shortness of breath, cough and some nausea and vomiting. We have a PCR probe positive for rhino virus/enterovirus which likely explains most of his symptoms. His procalcitonin is minimally elevated, but he looks entirely nontoxic, and his chest x-ray does not disclose any pulmonary infiltrate. He is breathing comfortably on room air and says he feels back to his baseline status and I am inclined to doubt that there is any superimposed significant bacterial infection despite his mildly elevated procalcitonin. RECOMMENDATIONS: 1. I would discontinue both the IV vancomycin and IV Zosyn. 2. I would prescribe a short course of doxycycline which may be helpful if there is some degree of bacterial superinfection or bronchitis superimposed on his underlying rheumatoid lung, in addition to the enterovirus/rhinovirus. 3. A short course of five days or so of doxy may also help in terms of his MRSA colonization when combined with mupirocin, which I would also apply nasally twice a day for 10 days. 4. I see no indication to treat his urine culture as he has no symptoms nor does he have any pyuria. 5. I think the patient could be made ready for discharge very rapidly over the next day or two. ADDITIONAL INFORMATION: A note was done earlier this morning and at that time we felt it was unlikely the patient had a significant bacterial infection, even though he did have a modestly elevated procalcitonin. There was no evidence for pneumonia. His chest x-ray did not show any infiltrate and certainly had a benign abdomen. He did have positive gram-negative rods in the urine but he had no symptoms and no pyuria. Unfortunately, I was just notified by the laboratory that 4/4 blood cultures are growing gram-negative rods. The source of this must be either abdominal or urinary though there is little to suggest that urinary tract infection and even less for an intra-abdominal process. Nonetheless, given this history, we must go ahead and restart broad spectrum gram-negative coverage. The coverage could include at this time restarting Zosyn, which we had just stopped, in appropriate doses. We will closely follow this patient going forward. Addenda added by ARETHA 03/17/17 at 11:39am
--- NOTE | 2017-03-17 11:22 | NUR ---
Palliative Care Palliative Care received verbal order from Dr Roque to assist with goals of care. Patient is an 81 year old man with history of COPD, rheumatoid arthritis, peripheral artery disease and leukocytoclastic vasculitis. He was admitted 03/16/17 for further evaluation of probable pneumonia and concern for NSTEMI. Patient lives home with . Was recently at [facility] after recent discharge from [facility]. Silvia Ramiro () [phone] Sanjuana Fly (daughter) [phone], Palliative Care to follow. We will talk with CM about DC planning before seeing pt. Estrella Blanchard
--- NOTE | 2017-03-17 11:52 | PCM.PNMED ---
Subjective Date of Service March 17, 2017 Subjective Mr. Rubio is an 81-year-old gentleman with a history of COPD and rheumatoid arthritis with pulmonary fibrosis on chronic immunosuppressive therapy who presented to the ED with the complaint of worsening shortness of breath and productive cough for the past 2-3 days. Admitted for further evaluation and management of increased dyspnea with concern for pneumonia and possible NSTEMI. Now with gram negative pavan bacteremia. Hospital day #2. Admitted to [facility] with telemetry in stable condition and placed on droplet precautions after respiratory viral panel positive for Rhinovirus. Per nursing, sinus rhythm with occasional PACs and PVCs noted on telemetry. Today he states that his breathing has improved and he notes an increase in his energy. He reports persistent coughing but feels this has also improved somewhat as he is no longer coughing to the point of emesis. He denies chest pain, palpitations, fever, chills, dysuria, abdominal pain, nausea or vomiting. Exam Vital Signs Vital Sign - Last Date Time Temp Pulse Resp B/P Pulse Ox O2 Delivery O2 Flow Rate FiO2 03/17/17 08:12 82 18 97 Room Air 03/17/17 07:41 35.8 140/72 2.00 Intake and Output 03/16/17 03/16/17 03/17/17 Cumulative From/Thru 15:00 23:00 07:00 03/16/17 15:42 - 03/17/17 05:19 Intake Total 150 ml 150 ml Output Total 400 ml 400 ml Balance -250 ml -250 ml Intake Oral 150 ml 150 ml Output Urine Total 400 ml 400 ml # Bowel Movements 0 0 Exam General: No acute distress, well-developed, well-nourished, appropriately interactive HEENT: Normocephalic, atraumatic. Pupils equal, round, and reactive to light and accommodation. Anicteric sclerae, moist mucosa. Neck: Supple with full range of motion. No jugular venous distension. No lymphadenopathy or thyromegaly. Cardiovascular: Regular rate and rhythm with no murmurs, rubs, or gallops appreciated Pulmonary: Lungs grossly clear to auscultation with mild crackles bilaterally, left slightly more than right. Abdomen: Bowel tones present. Soft, nontender, nondistended. No hepatosplenomegaly or masses appreciated. Extremities: No clubbing, cyanosis, edema, or lymphadenopathy appreciated. Skin: Normal temperature, turgor, and texture; diffuse scarring of left lower extremity with hyperpigmentation, no erythema, warmth or pain to touch. Neurological: Cranial nerves grossly intact. Alert and oriented to person, place and time. IVs and Medications Medications Reviewed: Medications were reviewed in detail Lab and Diagnostics Laboratory Tests Test 03/16/17 15:15 03/16/17 17:00 03/16/17 17:50 03/16/17 20:10 White Blood Count 8.7th/mm3 (3.8-10.1) Red Blood Count 4.41mil/mm3 (4.40-5.80) Hemoglobin 12.2g/dL (13.8-17.2) Hematocrit 39.1% (41.0-50.0) Mean Corpuscular Volume 88.7fL (81-100) Mean Corpuscular Hemoglobin 27.7pg (27.0-35.0) Mean Corpuscular Hemoglobin Concent 31.2% (32.0-37.0) Red Cell Distribution Width 16.8% (12.3-15.4) Platelet Count 105bil/L (150-400) Neutrophils (%) (Auto) 91.5% (40-74) Lymphocytes (%) (Auto) 1.6% (14-46) Monocytes (%) (Auto) 6.2% (4-12) Eosinophils (%) (Auto) 0.1% (0-5) Basophils (%) (Auto) 0.1% (0-3) Hold Purple Top Tube Received (Received) Hold Blue Top Tube Received (Received) Sodium Level 134mEq/L (134-144) 135mEq/L (134-144) Potassium Level 4.1mEq/L (3.5-5.2) 3.9mEq/L (3.5-5.2) Chloride Level 96mEq/L (97-108) 100mEq/L (97-108) Carbon Dioxide Level 20mmol/L (18-29) 22mmol/L (18-29) Blood Urea Nitrogen 25mg/dL (8-27) 22mg/dL (8-27) Creatinine 1.01mg/dL (0.76-1.27) 0.96mg/dL (0.76-1.27) Estimat Glomerular Filtration Rate 75mL/min (>59) 80mL/min (>59) Glucose Level 153mg/dL (60-99) 157mg/dL (60-99) Calcium Level 9.1mg/dL (8.5-10.1) 8.7mg/dL (8.5-10.1) Total Bilirubin 1.1mg/dL (0.0-1.2) 0.8mg/dL (0.0-1.2) Aspartate Amino Transf (AST/SGOT) 39U/L (0-50) 29U/L (0-50) Alanine Aminotransferase (ALT/SGPT) 31U/L (0-44) 24U/L (0-44) Alkaline Phosphatase 71U/L (25-160) 53U/L (25-160) Troponin T 0.100ug/L (0.0-0.011) Pro-B-Type Natriuretic Peptide 1226pg/mL (0-486) Total Protein 6.3g/dL (6.4-8.4) 5.1g/dL (6.4-8.4) Albumin 3.1g/dL (3.4-5.0) 2.7g/dL (3.4-5.0) Hold [place] Top Tube Received (Received) Urine Legionella pneumophilia Ag Negative (Negative) Lactic Acid Level 1.5mmol/L (0.4-2.0) Procalcitonin 1.17ng/mL (0.00-0.08) Test 03/16/17 21:14 03/17/17 02:35 03/17/17 08:00 Urine Color Dark yellow (YELLOW) Urine Appearance Hazy (CLEAR,HAZY) Urine pH 5.5 (5.0-8.0) Urine Specific [place] 1.025 (1.003-1.035) Urine Protein 100mg/dL (NEG,TRACE) Urine Glucose (UA) Negativemg/dL (NEGATIVE) Urine Ketones Tracemg/dL (NEGATIVE) Urine Occult Blood Moderate (NEGATIVE) Urine Nitrite Positive (NEGATIVE) Urine Bilirubin Negative (NEGATIVE) Urine Urobilinogen Normalmg/dL (NORMAL) Urine Leukocyte Esterase Small (NEGATIVE) Urine RBC 3-10/hpf (0-2) Urine WBC 0-5/hpf (0-5) Urine Epithelial Cells Few/hpf (NONE-MOD) Urine Crystals None seen (NONE SEEN) Urine Bacteria Many/hpf (NONE-FEW) Urine Hyaline Casts None/lpf (NONE) Urine Granular Casts None seen (NONE SEEN) Urine Waxy Casts None seen (NONE SEEN) Urine Red Blood Cell Casts None seen (NONE SEEN) Urine White Blood Cell Casts None seen (NONE SEEN) Urine Mucus None seen (None Seen) Urine Trichomonas None seen (NONE SEEN) Urine Yeast None (NONE SEEN) Urinalysis Comment None Urine Culture Reflexed Indicated White Blood Count 10.0th/mm3 (3.8-10.1) Red Blood Count 3.76mil/mm3 (4.40-5.80) Hemoglobin 10.5g/dL (13.8-17.2) Hematocrit 33.3% (41.0-50.0) Mean Corpuscular Volume 88.6fL (81-100) Mean Corpuscular Hemoglobin 27.9pg (27.0-35.0) Mean Corpuscular Hemoglobin Concent 31.5% (32.0-37.0) Red Cell Distribution Width 16.7% (12.3-15.4) Platelet Count 76bil/L (150-400) Neutrophils (%) (Auto) 86.1% (40-74) Lymphocytes (%) (Auto) 4.1% (14-46) Monocytes (%) (Auto) 9.2% (4-12) Eosinophils (%) (Auto) 0.1% (0-5) Basophils (%) (Auto) 0.1% (0-3) Troponin T 0.080ug/L (0.0-0.011) 0.112ug/L (0.0-0.011) Procalcitonin 1.79ng/mL (0.00-0.08) Microbiology 03/16/17 Blood Culture - positive for GRAM NEGATIVE RODS 03/16/17 MRSA (PCR) - Positive 03/16/17 Urine Culture - positive for GRAM NEGATIVE RODS Result Diagram: 03/17/17 0235 03/16/172009 Microbiology MRSA nasal screen positive. Preliminary blood cultures- positive, gram negative rods. Viral respiratory PCR- positive for Rhinovirus or Enterovirus. Strep pneumoniae and Legionella urine antigens- negative X-Rays, CTs and MRIs No new imaging overnight. X-RAY CHEST ONE VIEW, PORTABLE (03/16/17) IMPRESSION: Mildly reduced inspiratory volume, heart size at or just above the upper limits of normal. Dictated and approved by: Levi Minaya M.D. on 03/16/2017 at 16:37 Assessment & Plan Mr. Rubio is an 81-year-old gentleman with a history of COPD, rheumatoid arthritis with pulmonary fibrosis on immunosuppressive therapy, peripheral artery disease, and leukocytoclastic vasculitis who presented to the ED with the complaint of worsening shortness of breath and productive cough for the past 2-3 days. Admitted for further evaluation and management of increased dyspnea with concern for pneumonia and possible NSTEMI. Hospital day #2. 1. Viral pneumonia, acute. present on admission. Active. -Patient on chronic immunosuppressive therapy for rheumatoid arthritis w/ interstitial lung disease. -Respiratory viral panel positive for rhinovirus/enterovirus and positive MRSA nasal screen. -Procalcitonin 1.79 up from 1.17, repeat in morning -Antibiotics per Infectious Disease, appreciate recommendations. -Continue Duonebs, q4h while awake 2. Gram negative pavan bacteremia, acute. present on admission. Active. -Likely from urinary source with urine culture positive for gram negative rods and four out of four blood cultures positive for gram negative rods. He remains afebrile, hemodynamically stable and non-toxic. -Patient denies urinary symptoms but reports recent MRSA urinary tract infection , prior catheter associated UTI and recent treatment for BPH. -Followed by Urologist, Dr. Alejandro -Continue antibiotics per ID 3. Elevated troponin acute on chronic. present on admission. Appears stable. -Uncertain etiology, likely stress response secondary to bacteremia and viral pneumonia. Baseline 0.05 and most recently 0.12. -Troponin up from baseline at 0.10, 0.12 but appears stable and patient remains asymptomatic. -Continue to monitor clinically 4. Possible NSTEMI, acute. present on admission. Resolved. -Patient with chronically elevated troponin with apparent baseline 0.05. -Plan as above in #3 5. Concern for acute CHF, present on admission. Resolved -Patient mildly fluid overloaded with a proBNP of 1226 on admission now with no apparent signs and symptoms of heart failure. -EF of 55-60% on echocardiogram 09/2015. -Consider repeat echocardiogram as outpatient. 6. Rheumatoid arthritis, chronic. present on admission, Presumed stable. -Home regimen: prednisone 7.5mg po daily, leflunomide 20mg daily, hydroxychloroquine 200mg, mycophenolate 1,000mg bid -received stress dose of hydrocortisone in the ED. -continue home medications, Leflunomide not on hospital formulary, to bring in from home. 7. Hypertension, chronic. present on admission. Presumed stable -continue home medications 8. Hyperlipidemia, chronic. present on admission. Presumed stable. -continue home statin 9. Obstructive sleep apnea, chronic. present on admission. Presumed stable - to bring in home CPAP today. 10. History of GERD, chronic. present on admission. Presumed stable. - outpatient omeprazole converted to pantoprazole Disposition: Patient will likely discharge home with [facility] in 2- 3days as his strength improves and additional IV antibiotics. Pain Evaluation: Adequate Pain Control VTE Prophylaxis: Sub-Q Heparin (Unfractionated) Resuscitation Status: DNR/DNI:Do Not Resuscitate/Intubate Attending Statement The patient was seen and examined together with Dr. Rangel on 03/17/2017 and I agree with the history, exam and plan as outlined in the note above. . Hilda Rangel DO March 17, 2017 11:52 Eddie Gonzalez MD March 17, 2017 19:42
[2017-03-17] MEDS: [UNRECOGNIZED DRUG - OTHER] PO SCH (12:00)
--- NOTE | 2017-03-17 14:07 | NUR ---
Palliative Configuration Specialist Note03/17/1711:30AM This consumer loan underwriter spoke with Karli DASILVA, about discharge planning to date for pt. Pt. was admitted to [facility] on 03/16/17 for treatment related to NON STEMI and pneumonia. Discharge plan is pending at this time, and will be based on clinical needs of pt. Palliative Care will review pt.'s clinical records tomorrow, 03/18/17, to determine the focus of a palliative care 'goals of care' consultation. Focus of consultation will be based on attending provider's assessment of prognosis and necessary course of treatment at [facility]. ALEX Garza, PAULO Palliative Care Services
--- NOTE | 2017-03-17 14:29 | NUR ---
Social Work: Initial Assessment D: Per EMR review, pt is an 81 year old male admitted for Non STEMI, Weakness, Pneumonia, UTI. Pt is [employer] with Medicare. Pt has no LTC insurance or VA benefits. PCP is Leelee Bergeron MD. NOK Is Silvia Rubio, spouse, . Advanced directives completed and on file. Readmit score is moderate, 4/8. TRADE MARKER met with pt and spouse at bedside. Sw role explained and contact info provided. See initial assessment. Pt and spouse live in [place] in a senior Independent living facility. Pt does not drive and relies on his or daughter for transport. Pt is open with [facility] for RN, PT, OT. Pt uses a FWW and 4WW for ambulation. Pt and spouse express no concerns about discharge when ready and wish to go home with [facility]. Pt discussed in am rounds. Infectious disease is following and cultures are pending. PT will also be consulted when pt is appropriate. No orders have been placed at this time. t/c to Ananda Cruz with [facility] to notify of pt's admission. Access provided. They are following. A: Pt who lives with his in a senior care apartment. P: Evolving; Anticipate pt to discharge back to his home with his and [facility] pending PT evaluation/recommendations. TRADE MARKER to also r/o possible IV ABX prior to discharge. ALEX Clark Addendum: 03/17/17 at 1434 by PERLA ZEE Amended: Links added.
[2017-03-17] MEDS: Piperacillin-Tazo 3.375 Gm Inj 3.375 GM in Dextrose 5% Minibag Plus 50 ML IV SCH (16:42)
[2017-03-17] MEDS: Heparin 5,000 Unit/mL Inj SUBQ SCH (16:42)
[2017-03-17 16:43] LABS: BASOPHILS % (AUTO) 0.3 % (0-3)
[2017-03-17 16:47] LABS: EOSINOPHILS % (AUTO) 2.1 % (0-5); MONOCYTES % (AUTO) 10.3 % (4-12); Mean Corpuscular Hemoglobin 27.2 pg (27.0-35.0); Mean Corpuscular Volume 88.7 fL (81-100); NEUTROPHILS % (AUTO) 78.8 % (40-74); Platelet Count 87 bil/L (150-400)
[2017-03-17] MEDS: predniSONE 5 mg Tablet PO SCH (16:48)
[2017-03-17] MEDS: Calcium Carbonate (Oyster Shell) 500 mg Tablet PO SCH (17:37)
[2017-03-17] MEDS ORDERED: Potassium Chloride Inj 20 MEQ in Dextrose 5% 250 ML IV ONE (17:50)
--- NOTE | 2017-03-17 19:27 | NUR ---
O2/K+/Trop Pt's SPO2 sats in the upper 90s on 2L, O2 removed, SPO2 sats remained in the 90s and Pt denied increase in SOB. Pt's K+ 3.3 this afternoon, notified, IV K+ rider ordered which arrived at shift changed, oncoming NOC RN updated. Pt's trop came back and had increased to 0.145, made aware, trop lab ordered for tonight.
[2017-03-18] VITALS (12 sets, daily range): BP systolic 110–139; BP diastolic 60–74; PULSE 72–111; RESP 16–22; O2SAT 94–98
[2017-03-18] MEDS: Piperacillin-Tazo 3.375 Gm Inj 3.375 GM in Dextrose 5% Minibag Plus 50 ML IV SCH (00:04)
[2017-03-18] MEDS: Mupirocin 2% 22 Gm Ointment NASAL SCH ×3 (00:14→21:07)
[2017-03-18] MEDS: Heparin 5,000 Unit/mL Inj SUBQ SCH ×3 (00:14→18:28)
[2017-03-18] MEDS: Pantoprazole 20 mg ER24 Tablet PO SCH (06:38)
[2017-03-18] MEDS ORDERED: predniSONE 5 mg Tablet PO SCH (08:00)
[2017-03-18] MEDS: Albuterol-Ipratropium 3 mL Inhalation Solution NEB SCH ×4 (08:18→22:03)
[2017-03-18] MEDS ORDERED: [UNRECOGNIZED DRUG - OTHER] PO SCH (08:30)
[2017-03-18] MEDS ORDERED: BIOFLAVONOID PO SCH (08:30)
[2017-03-18] MEDS ORDERED: ASCORBATE CALCIUM PO SCH (08:30)
[2017-03-18 08:43] LABS: BASOPHILS % (AUTO) 0.3 % (0-3); EOSINOPHILS % (AUTO) 2.7 % (0-5); MONOCYTES % (AUTO) 11.4 % (4-12); Mean Corpuscular Hemoglobin 27.5 pg (27.0-35.0); Mean Corpuscular Volume 88.4 fL (81-100); NEUTROPHILS % (AUTO) 75.4 % (40-74); Platelet Count 83 bil/L (150-400)
[2017-03-18] MEDS: [UNRECOGNIZED DRUG - OTHER] PO SCH (10:16)
[2017-03-18] MEDS: Ertapenem Inj 1,000 MG in 0.9% Sodium Chloride 50 ML IV SCH (10:16)
[2017-03-18] MEDS: Hydroxychloroqine 200 mg Tablet PO SCH ×2 (10:17→21:11)
[2017-03-18] MEDS: predniSONE 5 mg Tablet PO SCH (10:17)
--- NOTE | 2017-03-18 10:35 | PCM.PNMED ---
Subjective Date of Service March 18, 2017 Subjective Mr. Rubio is an 81-year-old gentleman with a history of COPD and rheumatoid arthritis with pulmonary fibrosis on chronic immunosuppressive therapy who presented to the ED with the complaint of worsening shortness of breath and productive cough for the past 2-3 days. Admitted for further evaluation and management of increased dyspnea with concern for pneumonia and possible NSTEMI. Now with gram negative pavan bacteremia and urine culture positive for ESBL E. coli. Hospital day #3. Overnight, no acute events. Troponin continues to increase slightly with most recent level of 0.166. Patient remains asymptomatic for chest pain and states that his shortness of breath/coughing is at baseline. He denies dysuria, increased urinary frequency, abdominal pain or flank pain. Exam Vital Signs Vital Sign - Last Date Time Temp Pulse Resp B/P Pulse Ox O2 Delivery O2 Flow Rate FiO2 03/18/17 04:11 36.7 80 16 116/70 98 Nasal Cannula 2.00 Intake and Output 03/17/17 03/17/17 03/18/17 Cumulative From/Thru 15:00 23:00 07:00 03/16/17 15:42 - 03/18/17 04:35 Intake Total 1106 ml 400 ml 1656 ml Output Total 750 ml 750 ml 1900 ml Balance 356 ml -350 ml -244 ml Intake Oral 1060 ml 400 ml 1610 ml IV Total 46 ml 46 ml Output Urine Total 750 ml 750 ml 1900 ml # Bowel Movements 2 0 2 Exam General: No acute distress, well-developed, well-nourished, appropriately interactive HEENT: Normocephalic, atraumatic. Anicteric sclerae, moist mucosa. Neck: Supple, nontender. No jugular venous distension, lymphadenopathy or thyromegaly. Cardiovascular: Regular rate and rhythm with no murmurs, rubs, or gallops appreciated Pulmonary: Lungs grossly clear to auscultation with mild crackles bilaterally, no wheezing Abdomen: Bowel tones present. Soft, nontender, nondistended. Extremities: No clubbing, cyanosis, edema, or lymphadenopathy appreciated. Skin: Normal temperature, turgor, and texture; diffuse scarring of left lower extremity with hyperpigmentation, no erythema, warmth or pain to touch. Neurological: Cranial nerves grossly intact. Alert and oriented to person, place and time. IVs and Medications Medications Reviewed: Medications were reviewed in detail Lab and Diagnostics Laboratory Tests Test 03/17/17 14:25 03/17/17 16:30 03/17/17 20:02 03/17/17 22:00 Troponin T 0.145ug/L (0.0-0.011) 0.166ug/L (0.0-0.011) White Blood Count 6.6th/mm3 (3.8-10.1) Red Blood Count 3.82mil/mm3 (4.40-5.80) Hemoglobin 10.4g/dL (13.8-17.2) Hematocrit 33.9% (41.0-50.0) Mean Corpuscular Volume 88.7fL (81-100) Mean Corpuscular Hemoglobin 27.2pg (27.0-35.0) Mean Corpuscular Hemoglobin Concent 30.7% (32.0-37.0) Red Cell Distribution Width 16.5% (12.3-15.4) Platelet Count 87bil/L (150-400) Neutrophils (%) (Auto) 78.8% (40-74) Lymphocytes (%) (Auto) 8.2% (14-46) Monocytes (%) (Auto) 10.3% (4-12) Eosinophils (%) (Auto) 2.1% (0-5) Basophils (%) (Auto) 0.3% (0-3) Sodium Level 137mEq/L (134-144) Potassium Level 3.3mEq/L (3.5-5.2) 3.7mEq/L (3.5-5.2) Chloride Level 101mEq/L (97-108) Carbon Dioxide Level 23mmol/L (18-29) Blood Urea Nitrogen 24mg/dL (8-27) Creatinine 0.93mg/dL (0.76-1.27) Estimat Glomerular Filtration Rate 82mL/min (>59) Glucose Level 96mg/dL (60-99) Calcium Level 8.1mg/dL (8.5-10.1) Total Bilirubin 0.3mg/dL (0.0-1.2) Aspartate Amino Transf (AST/SGOT) 27U/L (0-50) Alanine Aminotransferase (ALT/SGPT) 21U/L (0-44) Alkaline Phosphatase 54U/L (25-160) Total Protein 4.6g/dL (6.4-8.4) Albumin 2.6g/dL (3.4-5.0) MICROBIOLOGY 03/16/17 Blood Culture -Positive for GRAM NEGATIVE RODS Urine Culture - Positive for E.coli (ESBL broadcast news producer) MRSA (PCR) - Positive Viral respiratory PCR- Positive for Rhinovirus/Enterovirus. Strep pneumoniae and Legionella urine antigens- negative Result Diagram: 03/17/17 1630 03/17/17 2200 Microbiology MRSA nasal screen positive. Preliminary blood cultures- positive, gram negative rods. Viral respiratory PCR- positive for Rhinovirus or Enterovirus. Strep pneumoniae and Legionella urine antigens- negative X-Rays, CTs and MRIs No new imaging overnight. X-RAY CHEST ONE VIEW, PORTABLE (03/16/17) IMPRESSION: Mildly reduced inspiratory volume, heart size at or just above the upper limits of normal. Dictated and approved by: Levi Minaya M.D. on 03/16/2017 at 16:37 Assessment & Plan 81-year-old gentleman with a history of COPD, rheumatoid arthritis with pulmonary fibrosis on immunosuppressive therapy, peripheral artery disease, and leukocytoclastic vasculitis who presented to the ED with the complaint of worsening shortness of breath and productive cough for the past 2-3 days. Admitted for further evaluation and management of increased dyspnea with concern for pneumonia and possible NSTEMI. Hospital day #3. 1. Viral pneumonia, acute. present on admission. Active. -Patient on chronic immunosuppressive therapy for rheumatoid arthritis w/ interstitial lung disease. -Respiratory viral panel positive for rhinovirus/enterovirus and positive MRSA nasal screen. -Procalcitonin trending down, 1.21 -Continue doxycycline , per Infectious Disease. -Continue Duonebs, q4h while awake 2. Gram negative pavan bacteremia, acute. present on admission. Active. -Likely from urinary source with urine culture positive for gram negative rods and four out of four blood cultures positive for gram negative rods. He remains afebrile, hemodynamically stable and non-toxic. -Patient denies urinary symptoms but reports recent MRSA urinary tract infection , prior catheter associated UTI and recent treatment for BPH. -Zosyn changed to Ertapenem following urine culture positive for ESBL E. coli, per Infectious disease. -Renal ultrasound ordered to asses for occult pathology or obstruction. -Recent history of intraurethral device (spanner). Followed outpatient by Urologist, Dr. Alejandro -Will alert Dr. Alejandro of patient's admission. 3. Elevated troponin acute on chronic. present on admission. Active -Uncertain etiology, likely stress response secondary to bacteremia and viral pneumonia. Baseline 0.05 and most recently 0.166. -Troponin up from baseline 0.05 and remains asymptomatic. -Continue to monitor clinically, follow troponin 4. Possible NSTEMI, acute. present on admission. Active -Patient with chronically elevated troponin with apparent baseline 0.05 now 0.166 -Plan as above in #3 5. Concern for acute CHF, present on admission. Active -Patient mildly fluid overloaded with a proBNP of 1226 on admission now with no apparent signs and symptoms of heart failure. -EF of 55-60% on echocardiogram 09/2015. -Echocardiogram today, results pending. 6. Rheumatoid arthritis, chronic. present on admission, Presumed stable. -Home regimen: prednisone 7.5mg po daily, leflunomide 20mg daily, hydroxychloroquine 200mg, mycophenolate 1,000mg bid -received stress dose of hydrocortisone in the ED. -continue home medications, Leflunomide not on hospital formulary, med brought in from home. 7. Hypertension, chronic. present on admission. Presumed stable -continue home Losartan 25mg daily 8. Hyperlipidemia, chronic. present on admission. Presumed stable. -Not currently on statin therapy, reason unknown, initially plan was to continue home statin -Will confirm with patient and chart review and resume if appropriate. 9. Hypothyroidism, chronic. present on admission. Presumed stable. -continue home levothyroxine. 10. Obstructive sleep apnea, chronic. present on admission. Presumed stable - CPAP has not been brought in from home. Supplemental oxygen as needed overnight. 11. History of GERD, chronic. present on admission. Presumed stable. - outpatient omeprazole converted to pantoprazole disposition: Patient will likely require 2-3 more days of inpatient monitoring for further evaluation of bacteremia and administration of IV antibiotics. Pain Evaluation: Adequate Pain Control VTE Prophylaxis: Sub-Q Heparin (Unfractionated) Resuscitation Status: CPR: Attempt Resuscitation Attending Statement The patient was seen and examined together with Resident/House-Staff on 03/18/17 and I agree with the history, exam and plan as outlined in the note above. Hilda Rangel DO March 18, 2017 07:52 Oswaldo Sargent March 21, 2017 14:27
--- NOTE | 2017-03-18 11:36 | DRSVH ---
PROCEDURE: US RENAL SONOGRAM INDICATIONS: UTI, bacteremia TECHNIQUE: Real-time scanning was performed of the kidneys and bladder, with image documentation. COMPARISON: None. FINDINGS: Kidneys: Kidneys are normal in size. Right kidney measures 11.2 cm long; left kidney measures 11.6 cm long. Right renal cortical thickness is 1.1 cm; left renal cortical thickness is 1.2 cm. Renal c ortical echotexture is slightly increased. No hydronephrosis or nephrolithiasis. No suspicious malu d mass lesions. Bladder: Pre-void bladder volume is 138 mL. Post-void residual is 104 mL. Pre-void images demonstr ate no intraluminal masses or stones. On pre-void images, bilateral ureteral jets are noted with col or Doppler interrogation. (Of note, ureteral jets may not be detectable in up to 25% of cases due to insufficient differences in specific gravity between ureteral and bladder urine). Miscellaneous: No free pelvic fluid. IMPRESSION: 1. Slight increase in renal cortical echogenicity and minimal cortical thinning suggesting medical re nal disease. 2. 104 cc PVR recorded. Dictated by: José MENDOZA Interpreted: Thomas Lyons MD on 03/18/2017 at 11:35 Transcribed by: EVANGELISTA on 03/18/2017 at 11:36 Approved by: Kody Lyons M.D. on 03/18/2017 at 11:54
--- NOTE | 2017-03-18 11:44 | DRSVH ---
[facility] [address] [place] [address] Echocardiogram Report Name: TERENCE BRUNO EStudy Date: 03/18/2017 Height: 69 in Hospital Exam Location: [facility] Weight: 180 lb Gender: Male BSA: 2.0 m2 : 1935 Age: 81 yrs BP: 116/70 mmHg Reason For Study: EDEMA, SHORTNESS OF BREATH Ordering Physician: HOSPITALIST [facility] Performed By: Paulino Staples Referring Physician: Dr Leelee Bergeron Interpretation Summary There is normal left ventricular wall thickness. The ejection fraction is estimated to be 65-70%. The right ventricle is normal in size and function. There is mild mitral regurgitation. There is trace tricuspid regurgitation. The right ventricular systolic pressure is estimated at 40 mmHg assuming a right atrial pressure of 3 mm Hg. There is a trivial pericardial effusion noted. Procedure: A two-dimensional transthoracic echocardiogram with color flow and Doppler was performed. The study quality was technically adequate. Comparison is made with the echocardiogram of 09/16/15. The patient was in normal sinus rhythm during the exam. The patient had frequent PACs during the exam. Left Ventricle: The left ventricle is normal in size. There is normal left ventricular wall thickness. The ejection fraction is estimated to be 65-70%. There are no focal wall motion abnormalities. Right Ventricle: The right ventricle is normal in size and function. Atria: Both atria are normal in size. The interatrial septum is intact with no evidence for an atrial septal defect. Mitral Valve: There is mild mitral annular calcification. There is mild mitral regurgitation. The mitral regurgitant jet is eccentrically directed. Aortic Valve: The aortic valve is normal in structure and function. The aortic valve is trileaflet. The aortic valve opens well. No aortic regurgitation is present. Tricuspid Valve: The tricuspid valve is normal in structure and function. There is trace tricuspid regurgitation. The right ventricular systolic pressure is estimated at 40 mmHg assuming a right atrial pressure of 3 mm Hg. Pulmonic Valve: The pulmonic valve is normal in structure and function. There is trace pulmonic regurgitation. Great Vessels: The aortic root is normal size. The dimensions of the ascending aorta are normal. The pulmonary artery is normal size. The IVC is of normal diameter and collapses greater than 50% with a sniff. This suggests a low right atrial pressure of 3 mm Hg. Pericardium/ Pleura There is a trivial pericardial effusion noted. There is no pleural effusion. MMode/2D Measurements & Calculations LVIDd: 4.7 cm LA dimension: 3.4 cm RA long axis Ao root diam LVIDs: 1.9 cm FS: 58.6 % LA A2 area: 22.9 cm RA area Aortic Jxn: 2.2 cm EPSS: 0.45 cm LA A4 area: 22.5 cm asc Aorta Diam IVSd: 1.2 cm LA length (vol) : 11.5 cm LVPWd: 1.1 cm RA vol Ao Arch Diam (Prox LA vol: 60.9 ml : 19.8 ml Trans): 2.9 cm LA vol index RA : 10.0 mm2 IVC diam: 1.3 cm LV hameed. diameter/BSA LV sys. diameter/BSA (cm/m^2): 2.4 (cm/m^2): 0.98 Doppler Measurements & Calculations Ao V2 max MV E max anders MV E/A: 0.93 TR max anders : 158.7 cm/sec : 60.7 cm/sec Med Peak E' Anders : 302.7 cm/sec Ao max PG MV A max anders TR max PG : 10.1 mmHg : 65.0 cm/sec E/E' med: 11.1 : 36.7 mmHg Ao mean PG MV A dur: 0.10 sec PA V2 max : 6.1 mmHg : 88.1 cm/sec PA mean PG PA Accel Time : 0.13 sec MV dec time Ao V2 mean PA V2 mean : 0.24 sec : 117.9 cm/sec : 62.0 cm/sec Ao V2 VTI: 26.9 cm Electronically signed by: Alexander Bower on Reading Physician:03/18/2017 11:44 AM
--- NOTE | 2017-03-18 12:15 | PROG NOTE ---
[address] [address] PROGRESS NOTE PATIENT: TERENCE BRUNO E : 1935 MR#: [id number] ADMIT: 03/16/2017 JOB ID: [id number] DATE: 03/18/2017 REASON FOR FOLLOWUP: ESBL E. coli bacteremia with associated rhinoviral infection. INTERVAL HISTORY: This is a patient we saw yesterday. We initially felt he did not have any systemic bacterial infection, but shortly after rounds we were notified that multiple blood cultures were growing a gram-negative pavan which turns out to be an ESBL E. coli. Oddly, this same organism has been cultured from his urine despite the fact he has no pyuria and no urinary symptoms. He was started on Zosyn yesterday afternoon, and this has been switched to ertapenem this morning, as it has become clear that this is a highly resistant ESBL E. coli. This morning, once again the patient does not feel bad. He has some nasal congestion consistent with a rhinoviral infection he probably acquired from his . He has no shortness of breath, nausea. The patient continues to have a minimal cough in association with his URI type symptoms. No nausea, vomiting, diarrhea. No dysuria. He just finished an ultrasound of his kidneys, and we discussed it with the tech at the bedside. There is no apparent hydronephrosis nor urinary retention. PHYSICAL EXAMINATION: Reveals an afebrile gentleman in no acute distress. Temp 36.6, pulse currently 110, but it has been in the 70 or 80 range, respiratory rate approximately 20, blood pressure 139/60, saturating well on room air. No acute distress. Oral cavity negative. Lungs relatively clear. Abdomen is soft, nontender. No suprapubic tenderness at all. Cardiac exam: Regular rate and rhythm. No skin rash noted today. LABORATORIES: Include white count 5900, which remains completely normal. Diff 75% segs. Procalcitonin yesterday 1.79, now down to 1.22. Creatinine 0.8. Urinalysis with no pyuria but grew an ESBL E. coli. Four blood cultures are growing gram-negative rods as well which will likely be the same E. coli. Also, the patient is MRSA positive in the nares and has rhinovirus/enterovirus detected by PCR study. Urine Legionella and pneumococcal antigens are negative. IMAGING: Includes yesterday's chest radiograph which did not show any significant infiltrate and the ultrasound we just discussed above. IMPRESSION: This is a very confusing case of a gentleman with underlying immunosuppression due to rheumatoid arthritis and the concomitant medications. 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 Yesterday when we saw the patient, we thought he most likely just had rhinovirus with perhaps some degree of secondary bacterial bronchitis superimposed on that, and we recommended mupirocin for his methicillin-resistant Staphylococcus aureus colonization as well as some doxycycline. Within an hour or so of our rounds, we were notified about the positive blood cultures, and Zosyn was added. Given the fact that he has extended-spectrum beta-lactamase in multiple blood cultures and his urine, we changed to ertapenem which is the only really dependable agent for Escherichia coli, unless they are exquisitely sensitive to Zosyn which is not known with respect to this isolette. This is a confusing case in that the patient has no urinary symptoms, nor does he have any suprapubic tenderness, nor does he have any flank tenderness, and he has no pyuria, and yet he appears to have sepsis due to a complicated urinary tract infection. This is hard to explain. It is possible that he has an intra-abdominal source of the extended-spectrum beta-lactamase Escherichia coli, it is a bit unlikely, as it was found in the urine and grew as rapidly as it did from blood basically. RECOMMENDATIONS: 1. Will continue ertapenem 1 g once a day IV starting today and continuing for two weeks which will take us through March 31. 2. Will continue with mupirocin for the nares. 3. Will continue with the doxycycline for five days or so as part of a nonspecific treatment for possible bronchitis, as well as for MRSA eradication purposes. 4. Will continue to follow this very confusing patient closely with you. If his hospital course is in any way complicated, the next test to do would be a CT scan of the abdomen and pelvis with contrast.
[2017-03-18] MEDS: Calcium Carbonate (Oyster Shell) 500 mg Tablet PO SCH ×2 (13:49→18:28)
--- NOTE | 2017-03-18 16:01 | NUR ---
Evaluation completed. Please go to "Notes" then click on "Assessments and Notes" (bottom left corner of screen). Then select appropriate discipline tab on top of screen.
--- NOTE | 2017-03-18 18:42 | NUR ---
Tele/No BM No reports of chest pain/pressure/discomfort. Per tele, SR with many PAC/PVCs 90s-100s. No reports of SOB at rest, reports "some" SOB with exertion. SPO2 on RA low to mid 90s. Reports productive cough that he is swallowing. No reports of n/v/d/c or abdominal pain. Tolerating PO intake well but reports decrease in appetite. Up to BSC x2, gas only per RUNNING INSTRUCTOR. Alert and oriented x3, CHATMAN, reports full sensation but states that left foot/toes are mostly numb r/t femoral occlusion. Patient reports generalized moderate fatigue.
[2017-03-18] MEDS ORDERED: Vancomycin Serum Trough XX ONE (20:00)
[2017-03-19] VITALS (12 sets, daily range): BP systolic 129–171; BP diastolic 61–100; PULSE 60–108; RESP 16–20; O2SAT 94–98
--- NOTE | 2017-03-19 00:40 | NUR ---
cpap patient has home cpap on tonight. 2 liter bleed. tolerating well. bedside pulse ox sats 95%. sleeping well at this time.
[2017-03-19] MEDS: Heparin 5,000 Unit/mL Inj SUBQ SCH ×3 (01:00→17:13)
[2017-03-19 04:34] LABS: BASOPHILS % (AUTO) 0.2 % (0-3); EOSINOPHILS % (AUTO) 3.4 % (0-5); MONOCYTES % (AUTO) 10.7 % (4-12); Mean Corpuscular Hemoglobin 27.2 pg (27.0-35.0); Mean Corpuscular Volume 88.5 fL (81-100); NEUTROPHILS % (AUTO) 71.8 % (40-74); Platelet Count 84 bil/L (150-400)
[2017-03-19] MEDS: Albuterol-Ipratropium 3 mL Inhalation Solution NEB SCH ×4 (06:00→22:37)
--- NOTE | 2017-03-19 06:45 | NUR ---
patient goal patient shaving his face. states "i don't want to go home until i can walk to the bathroom" explained that this was a doable goal today. will pass on to day shift.
[2017-03-19] MEDS: Pantoprazole 20 mg ER24 Tablet PO SCH (06:49)
[2017-03-19] MEDS: predniSONE 5 mg Tablet PO SCH (09:35)
[2017-03-19] MEDS: Calcium Carbonate (Oyster Shell) 500 mg Tablet PO SCH ×2 (09:36→18:15)
[2017-03-19] MEDS: Hydroxychloroqine 200 mg Tablet PO SCH ×2 (09:36→21:52)
[2017-03-19] MEDS: [UNRECOGNIZED DRUG - OTHER] PO SCH (09:38)
[2017-03-19] MEDS: Mupirocin 2% 22 Gm Ointment NASAL SCH ×2 (09:38→21:52)
[2017-03-19] MEDS: Ertapenem Inj 1,000 MG in 0.9% Sodium Chloride 50 ML IV SCH (10:06)
[2017-03-19] MEDS ORDERED: 0.9% Sodium Chloride 250 ML ONE (10:08)
--- NOTE | 2017-03-19 10:21 | NUR ---
Chair/BM Pt up to chair this am for two hours, pt ate breakfast sitting up. Assisted pt to BSC, pt had extra large loose BM. Pt stated having two BMs in less than one hour. Assisted pt back into bed. Care continues.
--- NOTE | 2017-03-19 12:25 | PCM.PNMED ---
Subjective Date of Service March 19, 2017 Subjective Mr. Rubio is an 81-year-old gentleman with a history of COPD and rheumatoid arthritis with pulmonary fibrosis on chronic immunosuppressive therapy who presented to the ED with the complaint of worsening shortness of breath and productive cough for the past 2-3 days. Admitted for further evaluation and management of increased dyspnea with concern for pneumonia and possible NSTEMI. Now with gram negative pavan bacteremia and urine culture positive for ESBL E. coli. Hospital day #4. Overnight, no acute events. Patient states that he continues to feel weak but reports a good night sleep. Per nursing, patient slept with home CPAP last night. He reports chills this morning but states that this is somewhat chronic for him and associated with a mild tremor. He denies chest pain, abdominal pain , nausea, vomiting or urinary symptoms. Yesterday he noted constipation and states that he has had two small bowel movements. Exam Vital Signs Vital Sign - Last Date Time Temp Pulse Resp B/P Pulse Ox O2 Delivery O2 Flow Rate FiO2 03/19/17 05:32 97 03/19/17 04:10 36.7 20 139/72 98 CPAP 03/18/17 22:05 2.00 Intake and Output 03/18/17 03/18/17 03/19/17 Cumulative From/Thru 15:00 23:00 07:00 03/16/17 15:42 - 03/19/17 06:18 Intake Total 1090 ml 300 ml 3046 ml Output Total 575 ml 700 ml 3175 ml Balance 515 ml -400 ml -129 ml Intake Oral 1040 ml 300 ml 2950 ml IV Total 50 ml 96 ml Output Urine Total 575 ml 700 ml 3175 ml # Voids 3 3 # Bowel Movements 0 0 2 Exam General: No acute distress, well-developed, well-nourished, appropriately interactive HEENT: Normocephalic, atraumatic. Anicteric sclerae, moist mucosa. Cardiovascular: Regular rate and rhythm with no murmurs, rubs, or gallops appreciated Pulmonary: Lungs grossly clear to auscultation with mild crackles bilaterally, no wheezing Abdomen: Bowel tones present. Soft, nontender, nondistended. Extremities: No clubbing, cyanosis, edema, or lymphadenopathy appreciated. Skin: Normal temperature, turgor, and texture; diffuse scarring of left lower extremity with hyperpigmentation, no erythema, warmth or pain to touch. Neurological: Cranial nerves grossly intact. Alert and oriented to person, place and time. IVs and Medications Medications Reviewed: Medications were reviewed in detail Lab and Diagnostics Laboratory Tests Test 03/18/17 20:20 03/19/17 04:25 Vancomycin Level Trough < 2.3mcg/mL White Blood Count 4.7th/mm3 (3.8-10.1) Red Blood Count 3.57mil/mm3 (4.40-5.80) Hemoglobin 9.7g/dL (13.8-17.2) Hematocrit 31.6% (41.0-50.0) Mean Corpuscular Volume 88.5fL (81-100) Mean Corpuscular Hemoglobin 27.2pg (27.0-35.0) Mean Corpuscular Hemoglobin Concent 30.7% (32.0-37.0) Red Cell Distribution Width 16.3% (12.3-15.4) Platelet Count 84bil/L (150-400) Neutrophils (%) (Auto) 71.8% (40-74) Lymphocytes (%) (Auto) 13.7% (14-46) Monocytes (%) (Auto) 10.7% (4-12) Eosinophils (%) (Auto) 3.4% (0-5) Basophils (%) (Auto) 0.2% (0-3) Sodium Level 140mEq/L (134-144) Potassium Level 3.8mEq/L (3.5-5.2) Chloride Level 105mEq/L (97-108) Carbon Dioxide Level 23mmol/L (18-29) Blood Urea Nitrogen 19mg/dL (8-27) Creatinine 0.77mg/dL (0.76-1.27) Estimat Glomerular Filtration Rate 103mL/min (>59) Glucose Level 107mg/dL (60-99) Calcium Level 8.3mg/dL (8.5-10.1) Total Bilirubin 0.2mg/dL (0.0-1.2) Aspartate Amino Transf (AST/SGOT) 27U/L (0-50) Alanine Aminotransferase (ALT/SGPT) 25U/L (0-44) Alkaline Phosphatase 67U/L (25-160) Total Protein 4.7g/dL (6.4-8.4) Albumin 2.4g/dL (3.4-5.0) Procalcitonin 0.81ng/mL (0.00-0.08) Result Diagram: 03/19/17 0425 03/19/17 0425 Microbiology 03/16/17 Blood Culture -Positive for GRAM NEGATIVE RODS Urine Culture - Positive for E.coli (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 Strep pneumoniae and Legionella urine antigens- negative X-Rays, CTs and MRIs No new imaging overnight. X-RAY CHEST ONE VIEW, PORTABLE (03/16/17) IMPRESSION: Mildly reduced inspiratory volume, heart size at or just above the upper limits of normal. Dictated and approved by: Levi Minaya M.D. on 03/16/2017 at 16:37 Cardiac Echo Impressions Echocardiogram Report (03/18/16) Interpretation Summary There is normal left ventricular wall thickness. The ejection fraction is estimated to be 65-70%. The right ventricle is normal in size and function. There is mild mitral regurgitation. There is trace tricuspid regurgitation. The right ventricular systolic pressure is estimated at 40 mmHg assuming a right atrial pressure of 3 mm Hg. There is a trivial pericardial effusion noted. Other than LV being more hyperdynamic, no significant change. Electronically signed by: Alexander Bower on Assessment & Plan 81-year-old gentleman with a history of COPD, rheumatoid arthritis with pulmonary fibrosis on immunosuppressive therapy, peripheral artery disease, and leukocytoclastic vasculitis who presented to the ED with the complaint of worsening shortness of breath and productive cough for the past 2-3 days. Admitted for further evaluation and management of increased dyspnea with concern for pneumonia and possible NSTEMI. Hospital day #4. 1.Gram negative pavan bacteremia, acute. present on admission. Active. -Likely from urinary source. Urine culture grew ESBL E.coli. Blood cultures growing gram neg rods. -Patient remains asymptomatic for urinary symptoms but has hx of recent MRSA UTI , prior catheter associated UTI and BPH. -Continue Ertapenem, per Infectious disease. Day 2 of ertapenem. -Received vancomycin (03/16-03/17), piperacillin-tazobactam (03/16-03/18) 2. Urinary tract infection, acute. present on admission. Active. -Patient asymptomatic for urinary symptoms with urine culture positive for ESBL E.coli. -Renal ultrasound without hydronephrosis and low residual volume. -Recent history of intraurethral device (spanner). Followed outpatient by Urologist, Dr. Alejandro. -Continue ertapenem, as above. 3. Viral pneumonia, acute. present on admission. Active. -Patient on chronic immunosuppressive therapy for rheumatoid arthritis w/ interstitial lung disease. -Respiratory viral panel positive for rhinovirus/enterovirus and positive MRSA nasal screen. -Procalcitonin trending down, 0.81 -Continue supportive care, duonebs q4h while awake. 3. Elevated troponin acute on chronic. present on admission. Appears stable. -Uncertain etiology, likely stress response secondary to bacteremia and viral pneumonia. -Troponin up from baseline 0.05 and remains asymptomatic for chest pain. -Continue to monitor clinically, will trend if patient develops symptoms or clinical suspicion increases. 4. Possible NSTEMI, acute. present on admission. Active -Patient with chronically elevated troponin with apparent baseline 0.05 now 0.166 -Plan as above in #3 5. Concern for acute CHF, present on admission. Resolved -Patient mildly fluid overloaded with a proBNP of 1226. -Clinically no signs and symptoms of heart failure. -Echo /- EF 65-70%, no significant change from prior study 6. Rheumatoid arthritis, chronic. present on admission, Presumed stable. -Home regimen: prednisone 7.5mg po daily, leflunomide 20mg daily, hydroxychloroquine 200mg, mycophenolate 1,000mg bid -received stress dose of hydrocortisone in the ED. -continue home medications, Leflunomide not on hospital formulary, med brought in from home. 7. Hypertension, chronic. present on admission. Presumed stable -continue home Losartan 25mg daily 8. Hyperlipidemia, chronic. present on admission. Presumed stable. -Not currently on statin therapy, reason unknown, initially plan was to continue home statin -Will confirm with patient and chart review and resume if appropriate. 9. Hypothyroidism, chronic. present on admission. Presumed stable. -continue home levothyroxine. 10. Obstructive sleep apnea, chronic. present on admission. Presumed stable - home CPAP machine 11. History of GERD, chronic. present on admission. Presumed stable. - outpatient omeprazole converted to pantoprazole Disposition: Patient will likely require 2-3 more days of inpatient monitoring for further evaluation of bacteremia and administration of IV antibiotics. Physical therapy recommending SNF following initial assessment however, with continued mobility training he may progress and discharge home with home health. Pain Evaluation: Adequate Pain Control VTE Prophylaxis: Sub-Q Heparin (Unfractionated) VTE Mechanical Devices: Intermittant Pneumatic CD Resuscitation Status: CPR: Attempt Resuscitation Attending Statement The patient was seen and examined together with Resident/House-Staff on 03/19/17 and I agree with the history, exam and plan as outlined in the note above. Hilda Rangel DO March 19, 2017 08:35 Oswaldo Sargent March 21, 2017 16:47
--- NOTE | 2017-03-19 15:46 | NUR ---
Social Work Note: Continued Discharge Planning Data& Assessment: EMR reviewed. SW met with with pt and pt family at bedside to discuss discharge planning. PT is now recommending SNF at time of discharge. Pt family explained that pt has used up all of his Medicare SNF coverage and is not able to return to SNF for 40 (out of 60) days. Pt would like to ambulate with RN in the room and continue PT here in the hospital in order to be safe returning home with [facility]. RN and MD notified. If pt was not able to ambulate out of bed independently, pt family would consider private pay at SNF, but prefers to discharge home. Pt family also expressed interest in a Hospice informational visit. SW arranged Hospice informational visit for tomorrow between 1:30-2:00p.m. Pt family and MD notified. ID also following for possible IV abx. SW to continue to follow for discharge planning needs. Pt and pt family denies any other needs at this time. Plan: Anticipated discharge home via POV with cip[facility] DAY RN, PT, OT, DOCUMENT CONTROL MANAGER when medically ready. Pt and Pt family having Hospice informational visit tomorrow, 03/20/2017 between 1:30-2:00p.m. SW to follow up with pt and pt family after informational visit is completed. Pt and pt family denies any other needs at this time. SW to continue to follow. ALEX Santiago
--- NOTE | 2017-03-19 18:29 | NUR ---
Coughing/chair Pt has rare cough this shift, encouraged sitting in chair for all meals. Pt tolerated chair, continued to sit up for 30 minutes before and after meals. HOB elevated to 30 degrees once in bed to help with cough. Care continues.
[2017-03-20] VITALS (12 sets, daily range): BP systolic 114–149; BP diastolic 60–78; PULSE 61–100; RESP 16–20; O2SAT 93–98
--- NOTE | 2017-03-20 00:03 | NUR ---
Mobility/BM Pt able to sit at the side of the bed and get up with with minimal assist onto the BSC. No increase in the work of breathing. Pt had a loose dark brown bowel movement. Specimen sent down to LAB with previous BM on day shift. Pt reporting no GI issues. Continue to monitor.
[2017-03-20] MEDS: Heparin 5,000 Unit/mL Inj SUBQ SCH ×3 (00:30→17:12)
[2017-03-20 05:06] LABS: BASOPHILS % (AUTO) 0.2 % (0-3); EOSINOPHILS % (AUTO) 5.1 % (0-5); MONOCYTES % (AUTO) 10.9 % (4-12); Mean Corpuscular Hemoglobin 27.4 pg (27.0-35.0); Mean Corpuscular Volume 89.4 fL (81-100); NEUTROPHILS % (AUTO) 68.6 % (40-74); Platelet Count 95 bil/L (150-400)
[2017-03-20] MEDS: Pantoprazole 20 mg ER24 Tablet PO SCH (06:44)
[2017-03-20] MEDS: Albuterol-Ipratropium 3 mL Inhalation Solution NEB SCH ×4 (07:37→22:17)
[2017-03-20] MEDS: Hydroxychloroqine 200 mg Tablet PO SCH ×2 (09:55→20:24)
[2017-03-20] MEDS: Calcium Carbonate (Oyster Shell) 500 mg Tablet PO SCH ×2 (09:55→17:30)
[2017-03-20] MEDS: predniSONE 5 mg Tablet PO SCH (09:57)
[2017-03-20] MEDS: [UNRECOGNIZED DRUG - OTHER] PO SCH (09:58)
[2017-03-20] MEDS: Ertapenem Inj 1,000 MG in 0.9% Sodium Chloride 50 ML IV SCH (10:00)
[2017-03-20] MEDS: Mupirocin 2% 22 Gm Ointment NASAL SCH ×2 (12:24→20:21)
--- NOTE | 2017-03-20 13:54 | NUR ---
[facility] signed
--- NOTE | 2017-03-20 15:46 | PCM.PNMED ---
Subjective Date of Service March 20, 2017 Subjective reports continued diarrhea. denies any other new issues/complaints Exam Vital Signs Vital Sign - Last Date Time Temp Pulse Resp B/P Pulse Ox O2 Delivery O2 Flow Rate FiO2 03/20/17 12:35 73 18 96 Room Air 03/20/17 11:44 36.6 126/78 03/19/17 22:37 2.00 Intake and Output 03/19/17 03/19/17 03/20/17 Cumulative From/Thru 15:00 23:00 07:00 03/16/17 15:42 - 03/20/17 04:21 Intake Total 880 ml 3926 ml Output Total 400 ml 3575 ml Balance 480 ml 351 ml Intake Oral 880 ml 3830 ml IV Total 96 ml Output Urine Total 400 ml 3575 ml # Voids 3 # Bowel Movements 3 5 General: Alert, Cooperative, No Acute Distress Head: Normal Eyes: Scleral Anicteric Mouth: Mucous Membr Moist/[place] Neck: Supple Chest & Lungs: Chest Wall Normal, Clear to auscultation & percussion Cardiovascular: Regular Rate/Rhythm Abdomen: Non-tender, Non-distended, Normoactive bowel tones, Soft Extremities: No cyanosis/clubbing/edma bilat Neurological: Grossly Neurologically Intact, Normal Speech IVs and Medications Medications Reviewed: Medications were reviewed in detail Lab and Diagnostics Result Diagram: 03/20/17 0455 03/20/17 0455 Microbiology 03/16/17 Blood Culture -Positive for GRAM NEGATIVE RODS Urine Culture - Positive for E.coli (ESBL national investigative producer) MRSA (PCR) - Positive Viral respiratory PCR- Positive for Rhinovirus/Enterovirus. Strep pneumoniae and Legionella urine antigens- negative X-Rays, CTs and MRIs No new imaging overnight. X-RAY CHEST ONE VIEW, PORTABLE (03/16/17) IMPRESSION: Mildly reduced inspiratory volume, heart size at or just above the upper limits of normal. Dictated and approved by: Levi Minaya M.D. on 03/16/2017 at 16:37 Cardiac Echo Impressions Echocardiogram Report (03/18/16) Interpretation Summary There is normal left ventricular wall thickness. The ejection fraction is estimated to be 65-70%. The right ventricle is normal in size and function. There is mild mitral regurgitation. There is trace tricuspid regurgitation. The right ventricular systolic pressure is estimated at 40 mmHg assuming a right atrial pressure of 3 mm Hg. There is a trivial pericardial effusion noted. Other than LV being more hyperdynamic, no significant change. Electronically signed by: Alexander Bower on Assessment & Plan 81-year-old male with a history of COPD, rheumatoid arthritis with pulmonary fibrosis on immunosuppressive therapy, peripheral artery disease, and leukocytoclastic vasculitis who presented to the ED with the complaint of worsening shortness of breath and productive cough for 2-3 days. # Gram negative apvan bacteremia, acute. present on admission. Active. -Likely from urinary source. Urine and blood culture with ESBL E.coli. -Patient remains asymptomatic for urinary symptoms but has hx of recent MRSA UTI , prior catheter associated UTI and BPH. -Appreciate ID consult. Will followup with recommendations. -Continue Ertapenem (Day 3) -Received vancomycin (03/16-03/17), piperacillin-tazobactam (03/16-03/18) # Urinary tract infection, acute. present on admission. Active. -Patient asymptomatic for urinary symptoms with urine culture positive for ESBL E.coli. -Renal ultrasound without hydronephrosis and low residual volume. -Recent history of intraurethral device (spanner). Followed outpatient by Urologist, Dr. Alejandro. -Continue ertapenem, as above. # Acute viral pneumonia with Rhinovirus/enterovirus. present on admission. Active. -Patient on chronic immunosuppressive therapy for rheumatoid arthritis w/ interstitial lung disease. -Continue supportive care, duonebs q4h while awake. # Positive MRSA nasal screen. Present on admission. -Bactroban nasal # Acute diarrhea. Not present on admission. Ongoing -Stool PCR negative including C. Diff # Elevated troponin acute on chronic (possible acute NSTEMI vs acute demand ischemia). present on admission. stable. -Likely acute demand ischemia due to stress response to bacteremia and acute viral pneumonia. -No chest pain. -Continue to monitor clinically # Concern for acute CHF, present on admission. Resolved -Patient mildly fluid overloaded with a proBNP of 1226. -Clinically no signs and symptoms of heart failure. -Echo 03/18- EF 65-70%, no significant change from prior study # Rheumatoid arthritis, chronic. present on admission. stable. -Home regimen: prednisone 7.5mg po daily, leflunomide 20mg daily, hydroxychloroquine 200mg, mycophenolate 1,000mg bid -Received stress dose of hydrocortisone in the ED. -Continue home medications, Leflunomide not on hospital formulary, med brought in from home. # Hypertension, chronic. present on admission. Presumed stable -Continue home Losartan 25mg daily # Hyperlipidemia, chronic. present on admission. Presumed stable. -Not currently on statin therapy, reason unknown -Confirm with patient and chart review and resume if appropriate. # Hypothyroidism, chronic. present on admission. Presumed stable. -Continue home levothyroxine. # Obstructive sleep apnea, chronic. present on admission. Presumed stable -Home CPAP machine # History of GERD, chronic. present on admission. Presumed stable. -Outpatient omeprazole converted to pantoprazole Dispo: 1-2 days pending improved respiratory status and improved diarrhea VTE Prophylaxis: Sub-Q Heparin (Unfractionated) VTE Mechanical Devices: Intermittant Pneumatic CD Resuscitation Status: DNR/DNI:Do Not Resuscitate/Intubate Oswaldo Sargent March 20, 2017 15:46
--- NOTE | 2017-03-20 15:55 | NUR ---
Chair/HR Pt too weak to sit in chair for breakfast from diarrhea the past two days. Up to chair 45 minutes prior lunch and 30 minutes after. Pt tolerated movement. signals collection technician reported pt having HR over 100 beginning 1140 with a burst of 140s at 1240 for 10 minutes. Pt denies chest pain, states he feels weak and tired. Helped pt back to bed. Pt resting with family at bedside. notified via [employer] paging re HR. Care continues.
--- NOTE | 2017-03-20 15:58 | NUR ---
Social Work Note: Continued Discharge Planning Data& Assessment: Pt and pt family met with Hospice SW this afternoon for informational visit. Per hospice SW pt family is reviewing the information provided and plans to discuss options further with pt and MD. SW to follow up with pt and pt family tomorrow regarding discharge planning. SW to continue to follow. Plan: Anticipated discharge home via POV with resume home health vs. home with hospice. SW to follow up with pt and pt family tomorrow regarding discharge planning. SW to continue to follow to r/o IV Abx needs. SW to continue to follow. ALEX Santiago
--- NOTE | 2017-03-20 18:41 | NUR ---
SR Patient converted back to SR at approximately 1530. Care continues.
--- NOTE | 2017-03-20 19:02 | PCM.ADCARE ---
Advance Care Planning Note Purpose of Encounter: Goals of care Parties in Attendance: Patient, his and two daughters Decisional Capacity: has capacity Subjective: reports continued diarrhea. denies any other new issues/complaints Objective: General: Alert, Cooperative, No Acute Distress Head: Normal Eyes: Scleral Anicteric Mouth: Mucous Membr Moist/[place] Neck: Supple Chest & Lungs: Chest Wall Normal, Clear to auscultation bilat Cardiovascular: Regular Rate/Rhythm Abdomen: Non-tender, Non-distended, Normoactive bowel tones, Soft Extremities: No cyanosis/clubbing/edema bilat Neurological: Grossly Neurologically Intact, Normal Speech Goals of Care Determinations: patient wishes to continue with current medical care but wishes to think about possible hospice and is wondering what to do if he has further infection or complications after this hospitalization. His notes that her and patient' s goal is to just live at their home with some additional home health support and to strongly consider hospice should patient have any further medical complications after this hospitalization. Patient insists at least being DNR/ DNI for now Plan: Continue with current medical care CODE STATUS: DNR/DNI Time Spent Adv.Care Plannin min Oswaldo Sargent March 20, 2017 19:02
[2017-03-21] VITALS (12 sets, daily range): BP systolic 117–137; BP diastolic 52–69; PULSE 63–97; RESP 16–20; O2SAT 95–99
[2017-03-21] MEDS: Heparin 5,000 Unit/mL Inj SUBQ SCH ×3 (00:18→17:21)
--- NOTE | 2017-03-21 05:20 | NUR ---
GI: pt. has had 3 episodes of loose stool mixed w/urine.
[2017-03-21] MEDS: Albuterol-Ipratropium 3 mL Inhalation Solution NEB SCH ×4 (08:09→21:28)
--- NOTE | 2017-03-21 09:18 | PCM.ADCARE ---
Advance Care Planning Note Purpose of Encounter: Goals of care Parties in Attendance: Patient, patient's ; Dr. Rangel and myself. Please note that this discussion was held on 03/17/2017. Decisional Capacity: Fully decisional Subjective: Mr. Chris Rubio is a pleasant 81-year-old gentleman with a history of COPD with chronic cough, rheumatoid arthritis on leflunomide and prednisone, peripheral artery disease, and leukocytoclastic vasculitis who presented to the [facility] Emergency Department with the complaint of worsening shortness of breath and persistent productive cough for the past 2-3 days. He was admitted for further evaluation and management of probable pneumonia and concern for non-ST elevation myocardial infarction. Patient reported that he is feeling much more comfortable compared to presentation and is close to his usual baseline status with the exception of persistent generalized weakness. Patient and both reported that his overall functional status has been in decline over the past 6+ months. Objective: Mr. Rubio suffers from a number of comorbid conditions, as listed above, and presented for yet another hospital admission in the context of multiple recent hospital admissions, alf facility stays, and outpatient visits. Currently, patient is suffering from rhinovirus positive viral bronchitis, gram-negative bacteremia, and possible non-ST elevation myocardial infarction. Goals of Care Determinations: A detailed discussion was held with the patient has regarding his goals. They are both very realistic about his current status and the likelihood that it may not get appreciably better. The patient is comfortable with this and feels that his strong mormonism beliefs provide great comfort. Both he and his are very clear about the functional status he needs to maintain to remain at home and this includes the ability to transfer with minimal assistance. This would allow the patient to move (or be moved) about the house and allow him to go to [place] weekly. Plan: Patient and appreciated a discussion regarding goals of care and efforts being planned to maintain a functional status that would allow him to remain in the home as long as possible. Patient is agreeable to pursuing any therapies pertaining to same, but realizes that his condition may preclude achieving and maintaining those goals. Should that occur, patient would be willing to entertain further discussion regarding alternative living arrangements, Hospice informational meeting, etc. Furthermore, patient is willing to pursue any medical therapy to improve his condition, but does not want any heroic measures to prolong his life, if it is clear that his demise is inevitable. CODE STATUS: DO NOT RESUSCITATE/DO NOT INTUBATE Time Spent Adv.Care Plannin minutes Adv. Care Plan Documenation: No changes to documentation at this time. Eddie Gonzalez MD March 21, 2017 09:18
[2017-03-21] MEDS: Calcium Carbonate (Oyster Shell) 500 mg Tablet PO SCH ×2 (09:22→17:21)
[2017-03-21] MEDS: Hydroxychloroqine 200 mg Tablet PO SCH ×2 (09:22→21:13)
[2017-03-21] MEDS: Pantoprazole 20 mg ER24 Tablet PO SCH (09:22)
[2017-03-21] MEDS: predniSONE 5 mg Tablet PO SCH (09:22)
[2017-03-21] MEDS: Ertapenem Inj 1,000 MG in 0.9% Sodium Chloride 50 ML IV SCH (09:23)
[2017-03-21] MEDS: Mupirocin 2% 22 Gm Ointment NASAL SCH ×2 (09:23→21:12)
[2017-03-21] MEDS: [UNRECOGNIZED DRUG - OTHER] PO SCH (09:24)
--- NOTE | 2017-03-21 11:48 | PCM.PNMED ---
Subjective Date of Service March 21, 2017 Subjective Mr. Rubio is an 81-year-old gentleman with a history of COPD and rheumatoid arthritis with pulmonary fibrosis on chronic immunosuppressive therapy who presented to the ED with the complaint of worsening shortness of breath and productive cough for the past 2-3 days. Admitted for further possible pneumonia and concern for NSTEMI and found to gram negative pavan bacteremia. Hospital day # 6. Overnight, no acute events. Per nursing, patient had three episodes of loose stool. Patient reports ongoing diarrhea and denies fever, chills, abdominal pain , nausea or vomiting. He remains asymptomatic of urinary symptoms and states that his breathing is at baseline. Exam Vital Signs Vital Sign - Last Date Time Temp Pulse Resp B/P Pulse Ox O2 Delivery O2 Flow Rate FiO2 03/21/17 09:30 36.5 90 18 121/60 97 Room Air 03/20/17 22:17 2.00 Intake and Output 03/20/17 03/20/17 03/21/17 Cumulative From/Thru 15:00 23:00 07:00 03/16/17 15:42 - 03/21/17 06:57 Intake Total 424 ml 1036 ml 400 ml 5786 ml Output Total 1500 ml 1000 ml 1500 ml 7575 ml Balance -1076 ml 36 ml -1100 ml -1789 ml Intake Oral 200 ml 1036 ml 400 ml 5466 ml IV Total 224 ml 320 ml Output Urine Total 550 ml 750 ml 100 ml 4975 ml Stool Total 950 ml 250 ml 1200 ml Urine/Stool Mix 1400 ml 1400 ml # Voids 1 4 # Bowel Movements 4 3 12 Exam General: No acute distress, well-developed, well-nourished, appropriately interactive HEENT: Normocephalic, atraumatic. Anicteric sclerae, moist mucosa. Cardiovascular: Regular rate and rhythm with no murmurs, rubs, or gallops appreciated Pulmonary: Lungs grossly clear to auscultation with mild crackles bilaterally, no wheezing Abdomen: Bowel tones present. Soft, nontender, nondistended. Extremities: No clubbing, cyanosis, edema, or lymphadenopathy appreciated. Skin: Normal temperature, turgor, and texture; diffuse scarring of left lower extremity with hyperpigmentation, no erythema, warmth or pain to touch. Neurological: Cranial nerves grossly intact. Alert and oriented to person, place and time. IVs and Medications Medications Reviewed: Medications were reviewed in detail Lab and Diagnostics Laboratory Tests Test 03/21/17 10:30 Procalcitonin 0.32ng/mL (0.00-0.08) Result Diagram: 03/20/17 0455 03/20/17 0455 Microbiology 03/16/17 Blood Culture -Positive for E.coli (ESBL reproducer) Urine Culture - Positive for E.coli (ESBL reproducer) MRSA (PCR) - Positive Viral respiratory PCR- Positive for Rhinovirus/Enterovirus. Strep pneumoniae and Legionella urine antigens- negative X-Rays, CTs and MRIs No new imaging overnight. X-RAY CHEST ONE VIEW, PORTABLE (03/16/17) IMPRESSION: Mildly reduced inspiratory volume, heart size at or just above the upper limits of normal. Dictated and approved by: Levi Minaya M.D. on 03/16/2017 at 16:37 Cardiac Echo Impressions Echocardiogram Report (03/18/16) Interpretation Summary There is normal left ventricular wall thickness. The ejection fraction is estimated to be 65-70%. The right ventricle is normal in size and function. There is mild mitral regurgitation. There is trace tricuspid regurgitation. The right ventricular systolic pressure is estimated at 40 mmHg assuming a right atrial pressure of 3 mm Hg. There is a trivial pericardial effusion noted. Other than LV being more hyperdynamic, no significant change. Electronically signed by: Alexander Bower on Assessment & Plan 81y/o male with a history of COPD, rheumatoid arthritis with pulmonary fibrosis on immunosuppressive therapy, peripheral artery disease, and leukocytoclastic vasculitis who presented to the ED with the complaint of worsening shortness of breath and productive cough for 2-3 days. Hospital day #6 1.Gram negative pavan bacteremia, acute. present on admission. Active. -Likely from urinary source. Urine and blood culture with ESBL E.coli. -Patient remains asymptomatic for urinary symptoms but has hx of recent MRSA UTI , prior catheter associated UTI and BPH. -Continue Ertapenem (day3), per Infectious disease. -Received vancomycin (03/16-03/17), piperacillin-tazobactam (03/16-03/18) 2. Urinary tract infection, acute. present on admission. Active. -Patient asymptomatic for urinary symptoms with urine culture positive for ESBL E.coli. -Renal ultrasound without hydronephrosis and low residual volume. -Recent history of intraurethral device (spanner). Followed outpatient by Urologist, Dr. Alejandro. -Continue ertapenem, as above. 3. Acute viral pneumonia with Rhinovirus/enterovirus. present on admission. Active. -Patient on chronic immunosuppressive therapy for rheumatoid arthritis w/ interstitial lung disease. -Continue supportive care, duonebs q4h while awake. 4. Positive MRSA nasal screen. Present on admission. Active -Bactroban nasal 5. Acute diarrhea. Not present on admission. Active -Stool PCR negative including C. Diff two days ago. Diarrhea persists, patient reported 5 bowel movements overnight. -Will recheck C.diff PCR 6. Elevated troponin acute on chronic (possible acute NSTEMI vs acute demand ischemia). present on admission. stable. -Likely acute demand ischemia due to stress response to bacteremia and acute viral pneumonia. -No chest pain. -Continue to monitor clinically 7. Concern for acute CHF, present on admission. Resolved -Patient mildly fluid overloaded with a proBNP of 1226. -Clinically no signs and symptoms of heart failure. -Echo 5/5- EF 65-70%, no significant change from prior study 8. Rheumatoid arthritis, chronic. present on admission. stable. -Home regimen: prednisone 7.5mg po daily, leflunomide 20mg daily, hydroxychloroquine 200mg, mycophenolate 1,000mg bid -Received stress dose of hydrocortisone in the ED. -Continue home medications, Leflunomide not on hospital formulary, med brought in from home. 9. Hypertension, chronic. present on admission. Presumed stable -Continue home Losartan 25mg daily 20. Hyperlipidemia, chronic. present on admission. Presumed stable. -Not currently on statin therapy, reason unknown -Confirm with patient and chart review and resume if appropriate. 11. Hypothyroidism, chronic. present on admission. Presumed stable. -Continue home levothyroxine. 12. Obstructive sleep apnea, chronic. present on admission. Presumed stable -Home CPAP machine 13. History of GERD, chronic. present on admission. Presumed stable. -Outpatient omeprazole converted to pantoprazole Dispo: Patient will likely discharge home with home health in 1-2 days pending improved diarrhea. . Pain Evaluation: Adequate Pain Control VTE Prophylaxis: Sub-Q Heparin (Unfractionated) VTE Mechanical Devices: Intermittant Pneumatic CD Resuscitation Status: DNR/DNI:Do Not Resuscitate/Intubate Attending Statement The patient was seen and examined together with Resident/House-Staff on 03/21/17 and I agree with the history, exam and plan as outlined in the note above. Hilda Rangel DO March 21, 2017 11:48 Oswaldo Sargent March 21, 2017 17:13 -Patient asymptomatic for urinary symptoms with urine culture positive for ESBL E.coli. -Renal ultrasound without hydronephrosis and low residual volume. -Recent history of intraurethral device (spanner). Followed outpatient by Urologist, Dr. Alejandro. -Continue ertapenem, as above. 3. Viral pneumonia, acute. present on admission. Active. -Patient on chronic immunosuppressive therapy for rheumatoid arthritis w/ interstitial lung disease. -Respiratory viral panel positive for rhinovirus/enterovirus and positive MRSA nasal screen. -Procalcitonin trending down, 0.81 -Continue supportive care, duonebs q4h while awake. 3. Elevated troponin acute on chronic. present on admission. Appears stable. -Uncertain etiology, likely stress response secondary to bacteremia and viral pneumonia. -Troponin up from baseline 0.05 and remains asymptomatic for chest pain. -Continue to monitor clinically, will trend if patient develops symptoms or clinical suspicion increases. 4. Possible NSTEMI, acute. present on admission. Active -Patient with chronically elevated troponin with apparent baseline 0.05 now 0.166 -Plan as above in #3 5. Concern for acute CHF, present on admission. Resolved -Patient mildly fluid overloaded with a proBNP of 1226. -Clinically no signs and symptoms of heart failure. -Echo 03/18- EF 65-70%, no significant change from prior study 6. Rheumatoid arthritis, chronic. present on admission, Presumed stable. -Home regimen: prednisone 7.5mg po daily, leflunomide 20mg daily, hydroxychloroquine 200mg, mycophenolate 1,000mg bid -received stress dose of hydrocortisone in the ED. -continue home medications, Leflunomide not on hospital formulary, med brought in from home. 7. Hypertension, chronic. present on admission. Presumed stable -continue home Losartan 25mg daily 8. Hyperlipidemia, chronic. present on admission. Presumed stable. -Not currently on statin therapy, reason unknown, initially plan was to continue home statin -Will confirm with patient and chart review and resume if appropriate. 9. Hypothyroidism, chronic. present on admission. Presumed stable. -continue home levothyroxine. 10. Obstructive sleep apnea, chronic. present on admission. Presumed stable - home CPAP machine 11. History of GERD, chronic. present on admission. Presumed stable. - outpatient omeprazole converted to pantoprazole Pain Evaluation: Adequate Pain Control VTE Prophylaxis: Sub-Q Heparin (Unfractionated) VTE Mechanical Devices: Intermittant Pneumatic CD Resuscitation Status: DNR/DNI:Do Not Resuscitate/Intubate Hilda Rangel DO March 21, 2017 11:48
--- NOTE | 2017-03-21 12:16 | NUR ---
Palliative Care Palliative Care was asked by Dr Sargent 03/21/17 to reconsult on patient. PC had signed off service last week as goals were clear at that time. Original referral was from Dr Roque on 03/17/17 to assist with goals of care. Silvia Rubio () [phone] Sanjuana Bill (daughter) [phone], Palliative Care will have a FCTM today at 1 p.m. Estrella Blanchard
--- NOTE | 2017-03-21 13:05 | PCM.CONPAL ---
Date of Service March 21, 2017 Date of Hospital Admission: March 16, 2017 at 18:32 Date of Palliative Consult: March 21, 2017 Requesting Provider: Oswaldo Sargent Comment: Followed outpatient by Urologist, Dr. Alejandro. Reason Palliative Care Consult: Goals of Care Discussion Reason for Consultation Palliative Care was asked today by Dr Sargent 03/21/17 to re-consult on patient. PC had signed off service last week as goals were clear at that time. Original referral was from Dr Roque on 03/17/17 to assist with goals of care. Silvia Rubio () [phone] Sanjuana Bill (daughter) [phone], Palliative Care will have a FCTM today at 1 p.m. Hospital Unit @time of consult: Progressive Care (Room 2028) Palliative Care Recommendation Summary of palliative recommendations: -Symptom management (Pain/other): per Attending -DPOA/Advanced Directives/POLST: 1. Code status remains DNR/DNI after family discussion today with Dr. Mendieta , Angie Marks, patient, Silvia and ESTER. 03/21: Family Conference Team Meeting (FCTM) 1. Although the patient saw Dr. Melton earlier today, he did not seem to remember or understand the plan of treatment for his infections and had many questions about this. Dr. Melton plans to continue patient on IV antibiotics (ertepenem) via home infusion until 03/31 to treat his ESBL bacteremia and UTI. There are no oral antibiotic alternatives for this. Dr. Mendieta had a lengthy discussion with family about pt's infections: viral pneumonia, MRSA in nares, ESBL bacteremia and UTI, as is worried about protection for herself and other family members once he is discharged home. Answered questions, asked pt and family to also check in with Dr. Melton, ID specialist re: how to limit risks to family members, but emphasized that pt is immunosuppressed and therefore vulnerable to infections that are not as easy for family to contract, provided they use soap and water after skin to skin contact with pt. 2. Family had a hospice information visit 03/20, but only and dtrs were present to listen to the hospice congressional representative. Lengthy discussion today about hospice benefits including the patient today, with expressing positive feelings about receiving help at home from hospice and by end of discussion patient remains ambivalent--he is not really interested in returning to hospital in future, but not quite ready to turn down help with future infections that would require hospitalization to get access to IV antibiotics. By end of our meeting, and patient decide that they need more time to think about this. At this time, the pt remains Hospice Eligible but is not appropriate because pt not ready to accept comfort care in the home and would still choose to return to hospital if sick. This may record changer assembler time, but his opinion is not likely to change this hospitalization and he is capacitated to make these decisions about his own healthcare. 3. Several times during our conversation, Silvia says she feels "overwhelmed" and is not sure she can handle taking care of her at home as he has become physically weaker and his care is more complicated. 4. The patient sees multiple physicians and complains that sometimes medications started by one doctor are stopped by another. He has difficulties understanding his medicine regimen. Some of his comorbidities include: COPD, bronchiectesis, interstitial lung disease, ie "rheumatoid lung" managed by Dr. Glover; sleep apnea for which he has a CPAP machine and is managed by two different doctors, one in [place] and Dr. Sam Lema in [place]; rheumatoid arthritis managed by Dr. 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 Brown. 5. He has limited insight into how his immunosuppression and comorbidities are compounding his difficulties in trying to stay out of the hospital, and how with each subsequent hospitalization he goes back home weaker and more dependent on his , who is having significant caregiver burden exhaustion. Family/emotional support: 1. will need more nursing support (nursing visits and explanation of medication administration) and physical support (people to help take baths/showers) in the home if patient is discharged to home. 2. It is not clear whether adult children are in a position to assist this couple physically/financially/emotionally. They have "three wonderful daughters " but not clear whether children work full-time/raise children full-time/live close enough to provide physical assistance to their parents. 3. Adult Children have not been attending patient's office visits to physicians and are probably unaware of patient's complex medical problems or prognosis. -Spiritual support: 1. Patient and are devout Christians, as are their adult children and the ESTER who attended our meeting today is a dermatology nurse. 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 Problems: Resuscitation Status Resuscitation Status: DNR/DNI:Do Not Resuscitate/Intubate POLST Updates/Changes POLST Review Outcome: No Change Pt History History of Present Illness Patient is an 81-year-old male with a history of COPD w/chronic cough, rheumatoid arthritis on immunosuppressive therapy, peripheral artery disease, and leukocytoclastic vasculitis who presented to the ED with the complaint of worsening shortness of breath and productive cough for the past 2-3 days. Associated symptoms include subjective fevers, post-tussive emesis, and generalized weakness. Of note, the patient was discharged from [facility] two weeks ago and his states that she has been fighting a cold. He was discharged from [facility] to [facility] on 02/16/17 following admission for left ankle pain that was attributed to rheumatoid arthritis flare. Per the patient and his he was was doing quite well following discharge from [facility] and saw his PCP just two days ago where he was given "a clean bill of health". Home health services reportedly noted a temperature >100F and tachycardia so recommended the patient visit Urgent Care or the ED. Patient reports pain with coughing but denies chest pressure, palpitations or chest pain. He states that his cough is productive for white/clear sputum and he denies hemoptysis. He also states that he has a decreased appetite but he attributes this to his loss of smell and his appetite is at baseline per his . He denies abdominal pain , diarrhea, constipation, bloody or dark stools, dizziness, headaches. In the ED vitals: temp 37.4, BP 166/67, HR 109, RR 20, SpO2 91% on room air; labs wbc 8.7, Hb 12.1, Hct 39.1, plts 105, sodium 134, potassium 4.1, chloride 96, bicarb 20, BUN 25, creatinine 1.01, glucose 153, lactic aicd 1.5, troponin 0.100, proBNP 1226, procalcitonin 1.17. EKG sinus rhythm with occasional PVCs noted, no acute ischemic changes. Chest xray mildly reduced inspiratory volume, heart size at or just above the upper limits of normal. In the ED, he was given a stress dose of hydrocortisone 100mg IV, Lovenox 100 mg subq due to elevated troponin and concern for an STEMI. Hospital Course: He was admitted for further evaluation to rule out STEMI and treatment for what appeared to be a hospital-acquired pneumonia and/or urinary tract infection. He was started on vancomycin and piperacillin/tazobactam for the latter possible infections. As workup proceeded, he has been found to have a viral pneumonia with Rhinovirus/enterovirus and continues to receive supportive care and duonebs. In addition, he has a gram negative pavan bacteremia and UTI positive for ESBL for which he is now on ertapenem (day 3). He has developed diarrhea this admission and first stool PCR was negative for C. Diff. Further stool testing is pending. He has had elevated troponins likely due to demand ischemia as a stress response to his bacteremia and viral pneumonia. Today is hospital day #6. Past Medical History Significant PMH Noted: 1. Leukocytoclastic vasculitis. 2. Rheumatoid arthritis. 3. 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 4. Monoclonal gammopathy of unknown significance. 5. COPD. 6. Bronchiectasis. 7. Peripheral arterial disease. 8. GERD. 9. Multiple actinic keratoses. 10. History of severe zoster involving the loss of left lower extremity last June/July. 11. Essential tremor. SOCIAL HISTORY: The patient is from [place]. He moved to [facility] and went to [facility] in [place]. 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 No recent travel, although he and his have traveled to [place]. The patient is a nonsmoker, nondrinker. FAMILY HISTORY: Negative. Medications Current Medications: Current Medications Patient Own Medication LEFLUNOMIDE 20MG DAILY DAILY PO; Start 03/22/17 at 08:30 Scheduled Albuterol Neb Soln (Albuterol Neb Soln) 2.5 Mg/3 Ml Vial.neb 3 ML INH BID Ascorbate Calcium/Bioflavonoid (Seda-C 500 mg Tablet) 1 Each Tablet 1 EACH PO DAILY Aspirin (Aspirin) 81 Mg Tablet 81 MG PO HS Calcium Carbonate (Calcium) 600 Mg Tablet 600 MG PO BIDWM Cholecalciferol (Vitamin D3) (Vitamin D3) 1,000 Unit Tab.chew 1,000 UNIT PO QAM Finasteride (Finasteride) 5 Mg Tablet 5 MG PO QAM Fluticasone Propionate (Fluticasone Propionate Nasal) 16 Gm Everson.susp 1 SPRAY NS QAM Hydroxychloroquine Sulfate (Plaquenil) 200 Mg Tablet 200 MG PO BID Leflunomide (Leflunomide) 20 Mg Tablet 20 MG PO QAM Levothyroxine (Levothyroxine) 25 Mcg Tablet 25 MCG PO QAM Losartan Potassium (Losartan Potassium) 25 Mg Tablet 25 MG PO QAM Magnesium Oxide (Magnesium Oxide) 400 Mg Tablet 800 MG PO HS Mycophenolate Mofetil (Mycophenolate Mofetil) 500 Mg Tablet 1,000 MG PO BID Omeprazole (Omeprazole) 20 Mg Capsule.dr 20 MG PO QAM Prednisone (PredniSONE) 2.5 Mg Tab 7.5 MG PO DAILY Primidone (Primidone) 50 Mg Tablet 50 MG PO HS Tamsulosin (Flomax) 0.4 Mg Capsule 0.8 MG PO HS Tiotropium [place] (Spiriva) 18 Mcg Cap.w.dev 2 PUFFS INHALATION QAM Scheduled PRN Acetaminophen (Tylenol Arthritis) 650 Mg Tablet.er 1,300 MG PO q8 hours PRN PRN For Pain Albuterol HFA (Proair HFA) 8.5 Gm Hfa.aer.ad 1-2 PUFFS INHALATION Q4H PRN PRN For Shortness of Breath Nystatin (Nystatin) 1 Each Powder.ea. 1 EACH MC BID PRN PRN RASH/YEAST Objective Findings Exam Vital Sign - Last Date Time Temp Pulse Resp B/P Pulse Ox O2 Delivery O2 Flow Rate FiO2 03/21/17 12:52 36.5 97 18 122/65 95 Room Air 03/20/17 22:17 2.00 Intake and Output 03/20/17 03/20/17 03/21/17 Cumulative From/Thru 15:00 23:00 07:00 03/16/17 15:42 - 03/21/17 06:57 Intake Total 424 ml 1036 ml 400 ml 5786 ml Output Total 1500 ml 1000 ml 1500 ml 7575 ml Balance -1076 ml 36 ml -1100 ml -1789 ml Intake Oral 200 ml 1036 ml 400 ml 5466 ml IV Total 224 ml 320 ml Output Urine Total 550 ml 750 ml 100 ml 4975 ml Stool Total 950 ml 250 ml 1200 ml Urine/Stool Mix 1400 ml 1400 ml # Voids 1 4 # Bowel Movements 4 3 12 General: Alert, Oriented, Person, Place, Situation HEENT: Atraumatic, PERRLA (vision decreased in right eye), EOMI, Scleral Anicteric, Mucous Membr Moist/[place], Other ([place], no hearing aides at hospital) Heart: Regular Rate/Rhythm, Normal S1, S2, No Murmurs/Rubs/Gallops Lungs: Clear to Auscultation Abdomen: Benign, Soft, Non Tender Neuro: Exam Intact, Weakness (generalized) Extremities: Warm, Other ( no erythema, warmth or pain to touch. ) Skin: Other (diffuse scarring of left lower extremity with hyperpigmentation (s /p past H. Zoster infection)) Lab/Diagnostics Microbiology 03/16/17 Blood Culture -Positive for E.coli (ESBL antique furniture reproducer) Urine Culture - Positive for E.coli (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 Strep pneumoniae and Legionella urine antigens- negative X-Rays, CTs and MRIs No new imaging overnight. X-RAY CHEST ONE VIEW, PORTABLE (03/16/17) IMPRESSION: Mildly reduced inspiratory volume, heart size at or just above the upper limits of normal. Dictated and approved by: Levi Minaya M.D. on 03/16/2017 at 16:37 Echocardiogram Report (03/18/16) There is normal left ventricular wall thickness. The ejection fraction is estimated to be 65-70%. The right ventricle is normal in size and function. There is mild mitral regurgitation. There is trace tricuspid regurgitation. The right ventricular systolic pressure is estimated at 40 mmHg assuming a right atrial pressure of 3 mm Hg. There is a trivial pericardial effusion noted. Other than LV being more hyperdynamic, no significant change. Electronically signed by: Alexander Bower Time spent Total time 70 minutes; >50% face to face with patient and/or family, providing counselling regarding plans and recommendations, and in care coordination with his/her medical teams. I also spent an additional 65 minutes counseling for advanced care planning with the patient/the patients family/the surrogate decision maker. copies to: Goran Brown MD; Sam Lema MD; Mariann Glover MD; Nicko Acuña MD, Cynthia MD March 21, 2017 13:05 Neuro: Exam Intact, Weakness (generalized) Extremities: Warm, Other ( no erythema, warmth or pain to touch. ) Skin: Other (diffuse scarring of left lower extremity with hyperpigmentation (s /p past H. Zoster infection)) Lab/Diagnostics Microbiology 03/16/17 Blood Culture -Positive for E.coli (ESBL antique furniture reproducer) Urine Culture - Positive for E.coli (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 Strep pneumoniae and Legionella urine antigens- negative X-Rays, CTs and MRIs No new imaging overnight. X-RAY CHEST ONE VIEW, PORTABLE (03/16/17) IMPRESSION: Mildly reduced inspiratory volume, heart size at or just above the upper limits of normal. Dictated and approved by: Levi Minaya M.D. on 03/16/2017 at 16:37 Echocardiogram Report (03/18/16) There is normal left ventricular wall thickness. The ejection fraction is estimated to be 65-70%. The right ventricle is normal in size and function. There is mild mitral regurgitation. There is trace tricuspid regurgitation. The right ventricular systolic pressure is estimated at 40 mmHg assuming a right atrial pressure of 3 mm Hg. There is a trivial pericardial effusion noted. Other than LV being more hyperdynamic, no significant change. Electronically signed by: Alexander Bower Time spent Total time [ ] minutes; >50% face to face with patient and/or family, providing counselling regarding plans and recommendations, and in care coordination with his/her medical teams. I also spent an additional [ ] minutes counseling for advanced care planning with the patient/the patients family/the surrogate decision maker. copies to: Sam Lema MD, Cynthia MD March 21, 2017 13:05 with the patient/the patients family/the surrogate decision maker. copies to: Sam Lema MD, Cynthia MD March 21, 2017 13:05
--- NOTE | 2017-03-21 13:45 | PROG NOTE ---
[address] [address] PROGRESS NOTE PATIENT: TERENCE BRUNO : 1935 MR#: [id number] ADMIT: 03/16/2017 JOB ID: [id number] DATE: 03/21/2017 REASON FOR FOLLOWUP: High-grade ESBL bacteremia secondary to complicated urinary tract infection. INTERVAL HISTORY: Recall this is a patient whom we initially saw in consultation late last week, who did not appear at all toxic. We were surprised when blood cultures grew ESBL E. coli and urine did as well, as the patient had no urinary symptoms and no pyuria. The patient has been started on ertapenem for this highly resistant ESBL E. coli bacteremia and is improving. Today, he states that he feels gradually better and is able to do some leg exercises and get around the room with his walker. He is anticipated probable discharge in the next day or two. No fevers, chills, or sweats. No significant cough, chest pain, or shortness of breath. No abdominal complaints except some loose stools. C. difficile is back and is negative on those loose stools. PHYSICAL EXAMINATION: Reveals an afebrile gentleman. Of interest, he has been afebrile since admission. Temp 36.5, pulse 90, respiratory rate 18, blood pressure 120/60, saturating well on room air. No acute distress. Is awake, alert, conversational, and a bit hard of hearing. Oral cavity negative. Lungs relatively clear. A few crackles at the base. Cardiac tones: Regular rate and rhythm. Abdomen soft and nontender. No flank tenderness is noted. LABORATORIES: Include white count 4300. Diff basically normal except 5% eosinophils. His creatinine is 0.76. Albumin 2.3. Procalcitonin coming down, currently 0.32. Urinalysis was without white cells but surprisingly grew an ESBL E. coli, as did multiple blood cultures. Also notable is the fact enterovirus or rhinovirus was detected by a nasopharyngeal PCR. IMAGING: Includes a retroperitoneal ultrasound that we had ordered to look for possible obstruction and none was seen. In fact, it was only 104 cc postvoid residual. IMPRESSION: This is a strange case of an immunosuppressed gentleman who presented with some fairly vague symptoms suggesting URI. A PCR showed he did have rhinovirus or enterovirus which had also been afflicting his lately, but the blood cultures and urine grew an ESBL E. coli. This was someone extraordinary in that the patient never looked toxic, had a negative urinalysis, and had no urinary symptoms. Nonetheless, he feels like he has some improving energy and generally feels reasonably well now early in his 4th or 5th day of ertapenem. RECOMMENDATIONS: 1. Will continue with the ertapenem through March 31 to complete a full two weeks of therapy for this high grade and highly resistant bacteremia. Note that there are no real oral options. 2. The patient has been receiving doxycycline and this is scheduled to stop tomorrow morning which I think is very appropriate. 3. Mupirocin is also on board and I think this should be continued for a 10-day course. 4. I have written orders for home infusion to evaluate the patient. He would prefer to go home rather than to a jail for his IV antibiotics, which would go through March 31, and if this can be arranged, I think this would be a good plan. He can go on ertapenem 1 g once a day through a midline catheter through March 31. No specific followup labs will be indicated as he will only have about nine days left when he leaves the hospital, if he leaves tomorrow.
--- NOTE | 2017-03-21 15:01 | NUR ---
Palliative care note FCTM D/A: Met with pt this am to discuss possibility of a 1:00 FCTM with he and spouse and other family members, if desired. Had left message for spouse already, pt to discuss with spouse. Call received from spouse who agrees to meeting. Met with pt, Dr. Mendieta, pt spouse and son in law. Long discussion about pt MRSA and e coli and how to protect others, methods of infection. Spouse expresses uncertainty about ability to care for spouse at home as she feels his care has become more complicated. Discuss [facility] and info visit that occurred. Pt and spouse have not had a chance to discuss the implications of hospice and were not seeming able at the time of the discussion portion that this worker was present for, to make a decision. Msg left for juancarlos Abrams that spouse was expressing ambivalence about ability to care for pt at home. This worker had to leave discussion after an hour, Dr. Mendieta to continue with talking to pt and spouse. P: Palliative care to follow. Angie DANIEL, [facility]
--- NOTE | 2017-03-21 17:30 | NUR ---
GI pt had one episode of loose stool early AM. Order to collect stool sample for C. dif. Pt had one small BM mixed with urine in afternoon. unable to collect sample at this time. Ongoing care.
[2017-03-22] VITALS (11 sets, daily range): BP systolic 109–120; BP diastolic 53–69; PULSE 67–97; RESP 16–20; O2SAT 92–99
[2017-03-22] MEDS: Heparin 5,000 Unit/mL Inj SUBQ SCH ×3 (00:19→16:23)
--- NOTE | 2017-03-22 05:13 | NUR ---
Sats pt using own CPAP while asleep. Sats remained in mid-upper 90's. Tele sinus rhythm in 70's. Discontinued per MD order. Slept much of the night. Left message for IV therapy re: midline IV placement.
[2017-03-22] MEDS: Pantoprazole 20 mg ER24 Tablet PO SCH (06:24)
[2017-03-22] MEDS: Albuterol-Ipratropium 3 mL Inhalation Solution NEB SCH ×5 (07:33→20:49)
[2017-03-22] MEDS: LEFLUNOMIDE 20 MG PO SCH (08:30)
[2017-03-22] MEDS: Calcium Carbonate (Oyster Shell) 500 mg Tablet PO SCH ×2 (09:27→16:23)
[2017-03-22] MEDS: Hydroxychloroqine 200 mg Tablet PO SCH ×2 (09:27→19:39)
[2017-03-22] MEDS: predniSONE 5 mg Tablet PO SCH (09:27)
[2017-03-22] MEDS: Mupirocin 2% 22 Gm Ointment NASAL SCH ×2 (09:28→19:39)
[2017-03-22] MEDS: Ertapenem Inj 1,000 MG in 0.9% Sodium Chloride 50 ML IV SCH (09:28)
--- NOTE | 2017-03-22 10:42 | NUR ---
Palliative care note D/A: Case discussed in PC rounds. Dr. Mendieta indicates that Dr. Melton is recommending IV antibx until 04/01/17. Phone call to Paulette to discuss and have recommended that agency do phone follow up post cessation of IV antibx after 04/01/17. Paulette to schedule. P: Palliative care to follow as needed. Angie DANIEL, CCM
--- NOTE | 2017-03-22 10:46 | PROG NOTE ---
[address] [address] PROGRESS NOTE PATIENT: TERENCE BRUNO : 1935 MR#: [id number] ADMIT: 03/16/2017 JOB ID: [id number] DATE: 03/22/2017 INFECTIOUS DISEASE FOLLOWUP NOTE: REASON FOR FOLLOWUP: Bacteremic ESBL-complicated urinary tract infection in a gentleman who also has enteroviral URI and who also is colonized with MRSA. INTERVAL HISTORY: The patient continues to feel much improved. He denies any fevers, chills, or sweats. He has minimal cough and states his respiratory status is basically back to baseline. No nausea or vomiting but he does have loose bowel movements. The patient does not have a Carmichael catheter at this time. PHYSICAL EXAMINATION: Reveals an afebrile gentleman. Temperature 36.5, pulse 72, respiratory rate 16, blood pressure 111/56. He is saturating well on room air, in no acute distress. Oral cavity negative. Lungs relatively clear. Cardiac tones without change. Abdomen soft and nontender. LABORATORIES: Include a white count of 4300. The diff is basically normal. Platelets 95,000. Creatinine 0.76. LFT are normal. Procalcitonin down to 0.32 today. No new micro data is available. Recall that he had bacteremic ESBL E. coli infection, as well as positive respiratory viral PCR for rhinovirus and/or enterovirus. A respiratory PCR panel was negative. No new x-rays are available. IMPRESSION: The patient is doing very well with respect to his bacteremic extended spectrum beta lactamase Escherichia coli urinary tract infection. His enteroviral/rhinovirus respiratory tract infection seems to be basically resolved at this point, and his methicillin-resistant Staphylococcus aureus colonization is not of concern. RECOMMENDATIONS: 1. The patient will need ertapenem through March 31. He can get this either at a SNF, at his home, or by coming to the [facility] every day. We discussed all these options in detail with the patient but he seems unable to decide at this point and wants to discuss it with Social Work and his . 2. The patient's doxycycline can be discontinued. 3. Ertapenem should be continued for a 10-14 day course. 4. We await a final decision as to what will be done with respect to his home antibiotics. He will need a midline catheter, and this was discussed again with the patient. JAYLA
--- NOTE | 2017-03-22 11:25 | PCM.PNMED ---
Subjective Date of Service March 22, 2017 Subjective Mr. Rubio is an 81-year-old gentleman with a history of COPD and rheumatoid arthritis with pulmonary fibrosis on chronic immunosuppressive therapy who presented to the ED with the complaint of worsening shortness of breath and productive cough for the past 2-3 days. Being treated for ESBL E.coli bacteremia , UTI and viral pneumonia. Overnight, no acute events. Patient reported ongoing diarrhea and C.diff ordered. Per nursing, patient had one loose stool mixed with urine in the afternoon and sample not yet collected. Diarrhea appears to be resolving and less likely infectious. Initial stool studies negative. Patient medically stable and arrangements for outpatient IV antibiotics in process. Exam Vital Signs Vital Sign - Last Date Time Temp Pulse Resp B/P Pulse Ox O2 Delivery O2 Flow Rate FiO2 03/22/17 07:33 72 16 97 Room Air 03/22/17 03:22 36.5 111/56 03/22/17 00:19 2.00 Intake and Output 03/21/17 03/21/17 03/22/17 Cumulative From/Thru 15:00 23:00 07:00 03/16/17 15:42 - 03/22/17 05:10 Intake Total 100 ml 5886 ml Output Total 700 ml 8275 ml Balance -600 ml -2389 ml Intake Oral 100 ml 5566 ml IV Total 320 ml Output Urine Total 700 ml 5675 ml Stool Total 1200 ml Urine/Stool Mix 1400 ml # Voids 4 # Bowel Movements 12 Exam General: No acute distress, well-developed, well-nourished, appropriately interactive HEENT: Normocephalic, atraumatic. Anicteric sclerae, moist mucosa. Cardiovascular: Regular rate and rhythm with no murmurs, rubs, or gallops appreciated Pulmonary: Lungs grossly clear to auscultation with no crackles or wheezing Abdomen: Bowel tones present. Soft, nontender, nondistended. Extremities: No clubbing, cyanosis, edema, or lymphadenopathy appreciated. Skin: Normal temperature, turgor, and texture; diffuse scarring of left lower extremity with hyperpigmentation, no erythema, warmth or pain to touch. Neurological: Cranial nerves grossly intact. Alert and oriented to person, place and time. IVs and Medications Medications Reviewed: Medications were reviewed in detail Lab and Diagnostics Laboratory Tests Test 03/21/17 10:30 Procalcitonin 0.32ng/mL (0.00-0.08) Result Diagram: 03/20/17 0455 03/20/17 0455 Microbiology 03/16/17 Blood Culture -Positive for E.coli (ESBL box hinge and lock attacher) Urine Culture - Positive for E.coli (ESBL box hinge and lock attacher) MRSA (PCR) - Positive Viral respiratory PCR- Positive for Rhinovirus/Enterovirus. Strep pneumoniae and Legionella urine antigens- negative X-Rays, CTs and MRIs No new imaging overnight. X-RAY CHEST ONE VIEW, PORTABLE (03/16/17) IMPRESSION: Mildly reduced inspiratory volume, heart size at or just above the upper limits of normal. Dictated and approved by: Levi Minaya M.D. on 03/16/2017 at 16:37 Cardiac Echo Impressions Echocardiogram Report (03/18/16) Interpretation Summary There is normal left ventricular wall thickness. The ejection fraction is estimated to be 65-70%. The right ventricle is normal in size and function. There is mild mitral regurgitation. There is trace tricuspid regurgitation. The right ventricular systolic pressure is estimated at 40 mmHg assuming a right atrial pressure of 3 mm Hg. There is a trivial pericardial effusion noted. Other than LV being more hyperdynamic, no significant change. Electronically signed by: Alexander Bower on Assessment & Plan 81y/o male with a history of COPD, rheumatoid arthritis with pulmonary fibrosis on immunosuppressive therapy, peripheral artery disease, and leukocytoclastic vasculitis who presented to the ED with the complaint of worsening shortness of breath and productive cough for 2-3 days. Being treated for ESBL E.coli bacteremia, UTI and viral pneumonia. 1.Gram negative pavan bacteremia, acute. present on admission. Active. -Likely from urinary source. Urine and blood culture with ESBL E.coli. -Patient remains asymptomatic for urinary symptoms but has hx of recent MRSA UTI , prior catheter associated UTI and BPH. -Continue Ertapenem (day4), per Infectious disease. With outpatient antibiotic infusions through March 31. -Received vancomycin (03/16-03/17), piperacillin-tazobactam (03/16-03/18) -Discharge pending arrangement for antibiotic infusions at home. 2. Urinary tract infection, acute. present on admission. Active. -Renal ultrasound without hydronephrosis and low residual volume. -Recent history of intraurethral device (spanner). Followed outpatient by Urologist, Dr. Alejandro. -Continue ertapenem, as above. 3. Acute viral pneumonia with Rhinovirus/enterovirus. present on admission. Improved -Patient on chronic immunosuppressive therapy for rheumatoid arthritis w/ interstitial lung disease. -Continue supportive care, duonebs q4h while awake. 4. Positive MRSA nasal screen. Present on admission. Active -Bactroban nasal 5. Acute diarrhea. Not present on admission. Improved -Stool PCR negative including C. Diff 03/19. Patient reported 5 bowel movements overnight (03/21) -Repeat C.diff PCR ordered, not yet collected 6. Elevated troponin acute on chronic (possible acute NSTEMI vs acute demand ischemia). present on admission. stable. -Likely acute demand ischemia due to stress response to bacteremia and acute viral pneumonia. -No chest pain. -Continue to monitor clinically 7. Concern for acute CHF, present on admission. Resolved -Patient mildly fluid overloaded with a proBNP of 1226. -Clinically no signs and symptoms of heart failure. -Echo 03/18- EF 65-70%, no significant change from prior study 8. Rheumatoid arthritis, chronic. present on admission. stable. -Home regimen: prednisone 7.5mg po daily, leflunomide 20mg daily, hydroxychloroquine 200mg, mycophenolate 1,000mg bid -Received stress dose of hydrocortisone in the ED. -Continue home medications, Leflunomide not on hospital formulary, med brought in from home. 9. Hypertension, chronic. present on admission. Presumed stable -Continue home Losartan 25mg daily 20. Hyperlipidemia, chronic. present on admission. Presumed stable. -Not currently on statin therapy, reason unknown -Confirmed with patient and chart review -Recommend follow up with PCP 11. Hypothyroidism, chronic. present on admission. Presumed stable. -Continue home levothyroxine. 12. Obstructive sleep apnea, chronic. present on admission. Presumed stable -Home CPAP machine 13. History of GERD, chronic. present on admission. Presumed stable. -Outpatient omeprazole converted to pantoprazole Dispo: Patient will likely discharge home with home health in 1-2 days pending improved diarrhea. Patient will need IV antibiotics through March 31, either home infusions or visits to [facility] for infusions. Physical therapy recommending SNF, patient without coverage for additional SNF days. Patient's concerned about medications and patient's ambulatory status at home. Pain Evaluation: Adequate Pain Control VTE Prophylaxis: Sub-Q Heparin (Unfractionated) VTE Mechanical Devices: Intermittant Pneumatic CD Resuscitation Status: DNR/DNI:Do Not Resuscitate/Intubate Attending Statement The patient was seen and examined together with Resident/House-staff on 03/22/17 and I agree with the history, exam and plan as outlined in the note above. Hilda Rangel DO March 22, 2017 08:07 Oswaldo Sargent March 25, 2017 16:48
--- NOTE | 2017-03-22 13:17 | NUR ---
Spoke with Kiara Fallon at [facility] and she is approving patient for transfer to [facility] when ready. With IV ABX and positive cultures patient is approved. Updated [employer]
--- NOTE | 2017-03-22 13:50 | NUR ---
Social Work Note: Continued Discharge Planning Data& Assessment: Per MD pt is getting closer to being medically ready for discharge. Per THEODORE FARRELL, pt will require IV abx until 03/31/2017. SYDNIE called [facility] now that regular weekday staff is working to speak with Kym in admissions regarding Medicare days and potential for pt to go to SNF for IV abx. Jade from [facility] states that pt had used up Medicare days this winter but they had restarted in the beginning of the year. Pt last [facility] admission was only for 11 days so pt would have Medicare days left. Kym explained that pt's IV abx is too expensive for their facility but if they can get a carve out for the medication, then they will be able to accept the pt. SW met with pt and pt family at bedside to discuss discharge planning. SW explained potential opportunity to go to [facility] as they had hoped for pending carve out approval from [place] for his medication. Pt family agreeable to resume [facility] and home infusion if [facility] is not able to provide the IV abx in their facility. Pt family provided with home infusion list for preferences, pt family does not have preferences and is agreeable to refer to the rotating calender. Referral provided to [facility] as a back up plan for if [facility] is unable to obtain the carve out for the medication. Pt family did meet with Hospice SW for informational visit but pt would like to complete this IV abx and see how he does at home first. Pt family did request Home Health SW be added for continued support once discharged and if pt decides to pursue hospice later on. Pt denies any other needs at this time. Pt family also provided with private pay caregiving information. SW to continue to follow. Plan: Anticipated discharge home with resume [facility] and [facility] for IV Ertapenem until March 31 vs. [facility] pending Medication Carve out approval from [place]. SW to continue to follow. ALEX Santiago Addendum: 03/22/17 at 1549 by AMBER MAHAJAN SS SYDNIE received phone call from [facility]ia[facility] explaining pt would have a $287 co-pay for home IV abx if pt goes home with home infusion. Pt family notified. SYDNIE spoke with Kym from [facility] who explained that she has not heard back from [place] about the medication carve out yet. However, she explained that if [facility] approves the carve out she will be able to accept pt tomorrow morning and have a private room for pt. Pt, pt family, and RN notified. ALEX Santiago
--- NOTE | 2017-03-22 14:17 | PCM.PALLBR ---
Palliative Care Recommendation Mr. Chris Rubio is a 81 yo male with a history of COPD, rheumatoid arthritis with pulmonary fibrosis on immunosuppressive therapy, peripheral artery disease , and leukocytoclastic vasculitis who presented to the ED with the complaint of worsening shortness of breath and productive cough for 2-3 days. Being treated for ESBL E.coli bacteremia, UTI and viral pneumonia. Hospital Day # 7 Summary of palliative recommendations: -Symptom management (Pain/other): medical problems are managed by the hospitalist team -DPOA/Advanced Directives/POLST: 1. Code status: DNR/DNI after family discussion with Dr. Mendieta, Angie Lurdesdennis, patient, Silvia and ESTER on 03/21/2017: 03/22: Palliative care team's Drs. Mendieta and Janette met pt and his Silvia, and his daughter, Sanjuana in patient's room this morning. The patient's continues to worry about his infection and protection for the family when the patient is discharged home. She also wants to know what happens if the patient does not get the antibiotic infusion at home. Dr. Mendieta offered a repeat of yesterday's counseling and explanations, but encouraged both the and daughter to discuss their concerns with Dr. Melton. [facility] contacted Dr. Melton's resident to alert them to family's questions. 03/21: Family Conference Team Meeting (FCTM) 1. Although the patient saw Dr. Melton earlier today, he did not seem to remember or understand the plan of treatment for his infections and had many questions about this. Dr. Melton plans to continue patient on IV antibiotics (ertepenem) via home infusion until 03/31 to treat his ESBL bacteremia and UTI. There are no oral antibiotic alternatives for this. Dr. Mendieta had a lengthy discussion with family about pt's infections: viral pneumonia, MRSA in nares, ESBL bacteremia and UTI, as is worried about protection for herself and other family members once he is discharged home. Answered questions, asked pt and family to also check in with Dr. Melton, ID specialist re: how to limit risks to family members, but emphasized that pt is immunosuppressed and therefore vulnerable to infections that are not as easy for family to contract, provided they use soap and water after skin to skin contact with pt. 2. Family had a hospice information visit 03/20, but only and dtrs were present to listen to the hospice corporate representative. Lengthy discussion today about hospice benefits including the patient today, with expressing positive feelings about receiving help at home from hospice and by end of discussion patient remains ambivalent--he is not really interested in returning to hospital in future, but not quite ready to turn down help with future infections that would require hospitalization to get access to IV antibiotics. By end of our meeting, and patient decide that they need more time to think about this. At this time, the pt remains Hospice Eligible but is not appropriate because pt not ready to accept comfort care in the home and would still choose to return to hospital if sick. This may roll changer time, but his opinion is not likely to change this hospitalization and he is capacitated to make these decisions about his own healthcare. 3. Several times during our conversation, Silvia says she feels "overwhelmed" and is not sure she can handle taking care of her at home as he has become physically weaker and his care is more complicated. 4. The patient sees multiple physicians and complains that sometimes medications started by one doctor are stopped by another. He has difficulties understanding his medicine regimen. Some of his comorbidities include: COPD, bronchiectesis, interstitial lung disease, ie "rheumatoid lung" managed by Dr. Glover; sleep apnea for which he has a CPAP machine and is managed by two different doctors, one in [place] and Dr. Sam Lema in [place]; rheumatoid arthritis managed by Dr. 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 Brown. 5. He has limited insight into how his immunosuppression and comorbidities are compounding his difficulties in trying to stay out of the hospital, and how with each subsequent hospitalization he goes back home weaker and more dependent on his , who is having significant caregiver burden exhaustion. Palliative care team will continue to follow and provide support as needed. We have asked Dr. Melton to see the patient's family to answer some of their concerns. Family/emotional support: 1. will need more nursing support (nursing visits and explanation of medication administration) and physical support (people to help take baths/showers) in the home if patient is discharged to home. 2. It is not clear whether adult children are in a position to assist this couple physically/financially/emotionally. They have "three wonderful daughters " but not clear whether children work full-time/raise children full-time/live close enough to provide physical assistance to their parents. 3. Adult Children have not been attending patient's office visits to physicians and are probably unaware of patient's complex medical problems or prognosis. We met one of the daughters, Sanjuana, and discussed about the patient' s medical issues. -Spiritual support: 1. Patient and are devout Christians, as are their adult children and the ESTER who attended our meeting today is a elementary ell teacher. 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 Problems: Resuscitation Status Resuscitation Status: DNR/DNI:Do Not Resuscitate/Intubate POLST Updates/Changes POLST Review Outcome: No Change Total time 65 minutes; >50% face to face with patient and/or family, providing counselling regarding plans and recommendations, and in care coordination with his/her medical teams. Attending Statement Attending was physically present and available at family/pt interview and discussion on symptoms, infections and plan of care. I approve of the note outlining palliative care plan above that was written by the resident. Palliative Brief Note Date of Service March 22, 2017 . No acute event overnight per nursing. The patient has been ambulating around the room with a walker and PT. He has no complaint today. Amilcar Bryant DO March 22, 2017 13:53 Padmini Mendieta MD March 22, 2017 14:34
--- NOTE | 2017-03-22 19:11 | NUR ---
midline placement Pt agreed to have midline placed per Dr Melton's order, done by IV therapy. Report given to oncoming RN.
[2017-03-23] MEDS: Heparin 5,000 Unit/mL Inj SUBQ SCH ×2 (02:45→09:57)
[2017-03-23 03:45] LABS: BASOPHILS % (AUTO) 0.6 % (0-3); EOSINOPHILS % (AUTO) 4.9 % (0-5); MONOCYTES % (AUTO) 10.8 % (4-12); Mean Corpuscular Hemoglobin 27.2 pg (27.0-35.0); NEUTROPHILS % (AUTO) 65.9 % (40-74); Platelet Count 126 bil/L (150-400)
[2017-03-23 04:05] VITALS: BP 133/69; PULSE 62; RESP 18; O2SAT 94
--- NOTE | 2017-03-23 07:15 | NUR ---
Midline dressing/tired Pt midline dressing leaking at 0700. Night RN reported leaking last night, called IV therapy at shift change. Per report flushes fine. Called IV therapy at 0710 to look at site. Pt denies pain at site. Care continues.
[2017-03-23 09:20] VITALS: BP 119/60; PULSE 78; PULSE 94; RESP 16; RESP 20; O2SAT 93; O2SAT 95
[2017-03-23] MEDS: Albuterol-Ipratropium 3 mL Inhalation Solution NEB SCH (09:38)
[2017-03-23] MEDS: predniSONE 5 mg Tablet PO SCH (09:54)
[2017-03-23] MEDS: Pantoprazole 20 mg ER24 Tablet PO SCH (09:54)
[2017-03-23] MEDS: Hydroxychloroqine 200 mg Tablet PO SCH (09:55)
[2017-03-23] MEDS: Calcium Carbonate (Oyster Shell) 500 mg Tablet PO SCH (09:56)
--- NOTE | 2017-03-23 10:10 | PROG NOTE ---
[address] [address] PROGRESS NOTE PATIENT: TERENCE BRUNO E : 1935 MR#: [id number] ADMIT: 03/16/2017 JOB ID: [id number] DATE: 03/23/2017 INFECTIOUS DISEASE FOLLOW UP NOTE: REASON FOR FOLLOW UP: Bacteremic ESBL E. coli infection as well as respiratory viral URI and MRSA colonization. INTERVAL HISTORY: This patient seems to have reached the end of his rather complex hospitalization. At this point, he is feeling quite well and denies any fevers, chills or sweats. No sore throat. No significant cough. No abdominal pain, though he did have three loose stools overnight. The patient does not have a Carmichael catheter at this point, and is not having any voiding issues. PHYSICAL EXAMINATION: Reveals a comfortable elderly gentleman in no acute distress. Temperature 36.7, pulse 78, respiratory rate 20, blood pressure 133/69. He is saturating well on room air. He is comfortable though hard of hearing as before. Oral cavity negative. Lungs clear. Abdomen benign. No skin rash. LABORATORIES: Include white count 3400 which is slowly dropping and that could be part of his of beta-lactam effect though he still has over 2000 neutrophils. Platelets actually getting better 126,000. Creatinine 0.99. LFTs completely normal. Procalcitonin down to 0.32 two days ago from a peak of 1.79 so he has had a good 80% drop. Urinalysis without white cells though the urine culture and blood cultures grew ESBL E. coli which was surprising. Respiratory viral PCR positive for rhino virus and/or enterovirus and MRSA screen of the nares was positive. No new imaging is available. IMPRESSION: This patient is doing very well with respect to his bacteremic ESBL E. coli bacteremia. His treatment should be completed on March 31 and to be completed either at his home with home infusion therapy or in a chcf, where he could receive rehab. My understanding, at this point, is the patient wishes to proceed to the nursing facility and I think that is very reasonable. RECOMMENDATIONS: 1. Ertapenem through March 31 1 g once a day. 2. A midline catheter has been placed and that will be used for access. 3. The patient could follow up with me but I tend to think it will not be necessary as the residential facility will followup his ertapenem therapy and he already has urologic followup with Dr. Alejandro. 4. The patient should use Bactroban, however, to complete a 10-14 day course of nasal Bactroban at the residential facility. That could reasonably run through March 31 as well. 5. ID will go ahead and sign off. Thank you very much for this consult.
[2017-03-23] MEDS: LEFLUNOMIDE 20 MG PO SCH (11:00)
[2017-03-23] MEDS: Ertapenem Inj 1,000 MG in 0.9% Sodium Chloride 50 ML IV SCH (11:01)
[2017-03-23] MEDS: Mupirocin 2% 22 Gm Ointment NASAL SCH (11:07)
--- NOTE | 2017-03-23 11:46 | PCM.DIMED ---
Discharge Instructions Date of Service March 23, 2017 Dates of Hospitalization March 16, 2017 at 18:32 Discharge Diagnosis Discharge Diagnosis -Bacterial infection in your urine and blood. -Viral pneumonia -Rheumatoid arthritis -Hypertension -Hyperlipidemia -Hypothyroidism. -Obstructive sleep apnea -Gastroesophageal reflux Diet Heart Healthy Activity Outpatient Physical Therapy Call your provider Fever or Chills, Shortness of breath, Chest pain, Excessive diarrhea, Weakness ( unilateral) (If you develop new or concerning symptoms, please contact your primary care physician or alert the physician at [facility]. ) Patient Instructions Dr. Moreno will be taking over your care at [facility]. The antibiotic infusions will be given at [facility] and you will be on antibiotics until March 31. Followup with your primary care physician, Dr. Bergeron as planned to review hospital stay. Followup with Urology, Dr. Alejandro as needed. . Follow-up plan Dr. Bebe Bergeron [address] [id number] . Follow-up Provider: Leelee Bergeron MD Follow-up with PCP in: 1 week Hilda Rangel DO March 23, 2017 07:33 Hilda Rangel DO March 23, 2017 07:33
[2017-03-23 11:50] VITALS: BP 139/71; PULSE 100; RESP 18; O2SAT 95
--- NOTE | 2017-03-23 12:55 | NUR ---
Social Work Note: Discharge Data& Assessment: Per pt is medically ready to discharge. SW confirmed with Kym from [facility] that they have approval for the carve out in order to compensate for pt IV abx. [facility] is able to accept pt this afternoon via wheelchair van arranged by their facility at 2:00p.m. SW met with pt at bedside to confirm discharge plan and SW also notified pt Silvia. Pt daughter picked up pt personal belongings and CPAP machine. Pt denies any other needs. Pt denies any other needs. SW notified [facility] pt will not be requiring their services. RN, , facility, pt and pt family all updated and agreeable to plan. No other discharge needs identified. Plan:Per pt is medically improved and ready to discharge to [facility] via wheelchair van arranged by the facility at 2:00p.m. for IV abx until March 31. Authorization and carve out obtained for pt SNF stay. Pt and pt family deny any other needs. All updated and agreeable to plan. ALEX Santiago
--- NOTE | 2017-03-23 14:18 | NUR ---
Faxed orders to [facility] and placed copy on chart. [facility] arranged transport for 1400
--- NOTE | 2017-03-23 14:50 | NUR ---
Discharge Pt discharged at approximately 1420 to [facility] via transporter. Pt left with clothes, lambs wool pad, home medication Leflumonide, and Bactroban. Pt to continue ABX infusion at [facility] through [facility]. Report given to [facility]. Pt daughter took remaining personal items including CPAP machine at approximately 1130. Care continues.
--- NOTE | 2017-03-24 20:10 | PCM.DC.MED ---
Discharge Summary Date of Service March 23, 2017 Dates of Hospitalization Date of Hospital Admission March 16, 2017 at 18:32 Date of Discharge: March 23, 2017 Providers: Admitting Physician: Eddie Gonzalez MD Primary Care Physician: Leelee Bergeron MD Attending Physician: Eddie Gonzalez MD Diagnosis at Time of Discharge Diagnosis at Time of Discharge -ESBL E. coli bacteremia and UTI -Acute viral pneumonia with Rhinovirus/enterovirus. -Positive MRSA nasal screen. -Elevated troponin acute on chronic. -Rheumatoid arthritis -Hypertension -Hyperlipidemia -Hypothyroidism -Obstructive sleep apnea. -GERD. Consultations Infectious disease Procedures XRay, CTs & MRIs (03/16/17) X-RAY CHEST ONE VIEW, PORTABLE IMPRESSION: Mildly reduced inspiratory volume, heart size at or just above the upper limits of normal. Dictated and approved by: Levi Minaya M.D. on 03/16/2017 at 16:37 (03/18/17) US RENAL SONOGRAM IMPRESSION: 1. Slight increase in renal cortical echogenicity and minimal cortical thinning suggesting medical renal disease. 2. 104 cc PVR recorded. Interpreted and approved by: Thomas Lyons MD on 03/18/2017 at 11:35 Cardiac Echo Impression Echocardiogram Report (03/18/16) Interpretation Summary There is normal left ventricular wall thickness. The ejection fraction is estimated to be 65-70%. The right ventricle is normal in size and function. There is mild mitral regurgitation. There is trace tricuspid regurgitation. The right ventricular systolic pressure is estimated at 40 mmHg assuming a right atrial pressure of 3 mm Hg. There is a trivial pericardial effusion noted. Other than LV being more hyperdynamic, no significant change. Electronically signed by: Alexander Bower on Brief History Per admission history and physical on March 16, 2017. Hilda Rangel DO Patient is an 81-year-old male with a history of COPD w/chronic cough, rheumatoid arthritis on immunosuppressive therapy, peripheral artery disease, and leukocytoclastic vasculitis who presented to the ED with the complaint of worsening shortness of breath and productive cough for the past 2-3 days. Associated symptoms include subjective fevers, post-tussive emesis, and generalized weakness. Of note, the patient was discharged from [facility] two weeks ago and his states that she has been fighting a cold. He was discharged from [facility] to [facility] on 02/16/17 following admission for left ankle pain that was attributed to rheumatoid arthritis flare. Per the patient and his he was was doing quite well following discharge from [facility] and saw his PCP just two days ago where he was given "a clean bill of health". Home health services reportedly noted a temperature >100F and tachycardia so recommended the patient visit Urgent Care or the ED. Patient reports pain with coughing but denies chest pressure, palpitations or chest pain. He states that his cough is productive for white/clear sputum and he denies hemoptysis. He also states that he has a decreased appetite but he attributes this to his loss of smell and his appetite is at baseline per his . He denies abdominal pain , diarrhea, constipation, bloody or dark stools, dizziness, headaches. In the ED vitals: temp 37.4, BP 166/67, HR 109, RR 20, SpO2 91% on room air; labs wbc 8.7, Hb 12.1, Hct 39.1, plts 105, sodium 134, potassium 4.1, chloride 96, bicarb 20, BUN 25, creatinine 1.01, glucose 153, lactic aicd 1.5, troponin 0.100, proBNP 1226, procalcitonin 1.17. EKG sinus rhythm with occasional PVCs noted, no acute ischemic changes. Chest xray mildly reduced inspiratory volume, heart size at or just above the upper limits of normal. He was given a stress dose of hydrocortisone 100mg IV, Lovenox 100 mg subq due to elevated troponin and concern for an STEMI. Hospital Course Mr. 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 Admitted for further evaluation to rule out NSTEMI and treatment for what appeared to be a hospital-acquired pneumonia and/or urinary tract infection. He was started empirically on vancomycin and piperacillin/ tazobactam. As workup proceeded, he has been found to have a viral pneumonia with Rhinovirus/enterovirus and continued to require supplemental oxygen, supportive care and duonebs. Infectious disease was consulted and antibiotics were discontinued and presentation largely attributed to viral process. Several hours later 4/4 blood cultures were positive for gram negative rods and IV zosyn resumed. In addition, his urine was also positive for gram negative rods. He was changed to ertapenem when both blood and urine grew ESBL E. coli. He developed diarrhea during this admission and stool PCR was negative for C. Diff. His troponins were elevated on admission and likely due to demand ischemia as a stress response to his bacteremia and viral pneumonia. He was discharged with plan for antibiotic infusions until March 31. 1.Gram negative pavan bacteremia, acute. present on admission. Treating -Likely from urinary source. Urine and blood culture with ESBL E.coli. -Patient remained asymptomatic for urinary symptoms but has hx of recent MRSA UTI, prior catheter associated UTI and BPH. -Patient treated with IV Ertapenem, per Infectious disease. With outpatient antibiotic infusions through March 31. -He also received vancomycin (03/16-03/17), piperacillin-tazobactam (03/16-03/18) 2. Urinary tract infection, acute. present on admission. Treated -Recent history of intraurethral device (spanner). Followed outpatient by Urologist, Dr. Alejandro. -Renal ultrasound without hydronephrosis and low residual volume. -Patient received antibiotics, as above. 3. Acute viral pneumonia with Rhinovirus/enterovirus. present on admission. Resolved -Patient on chronic immunosuppressive therapy for rheumatoid arthritis w/ interstitial lung disease. -Treated with supportive care, doxycycline per Infectious disease due to immunosuppresive state. -He received Duonebs q4h 4. Positive MRSA nasal screen. Present on admission. Treated -Bactroban nasal, continue for 3 more days following discharge to complete 10day course. 5. Acute diarrhea. Not present on admission. Resolved -Stool PCR negative including C. Diff 03/19. 6. Elevated troponin acute on chronic. present on admission. stable. -Likely acute demand ischemia due to stress response to bacteremia and acute viral pneumonia. -Patient asymptomatic for chest pain, no acute ischemic changes on EKG. 7. Concern for acute CHF, present on admission. Resolved -Patient mildly fluid overloaded with a proBNP of 1226. -Clinically he was without signs and symptoms of heart failure. -ECHO on 03/18/17 showed an EFof 65-70%, no significant change from prior study 8. Rheumatoid arthritis, chronic. present on admission. stable. -Home regimen: prednisone 7.5mg po daily, leflunomide 20mg daily, hydroxychloroquine 200mg, mycophenolate 1,000mg bid -Patient received stress dose of hydrocortisone in the ED and was continued on his home medications. -Leflunomide not on hospital formulary, med brought in from home. 9. Hypertension, chronic. present on admission. Presumed stable -Patient was continued on home Losartan 25mg daily 20. Hyperlipidemia, chronic. present on admission. Presumed stable. -Not currently on statin therapy -Recommend follow up with PCP 11. Hypothyroidism, chronic. present on admission. Presumed stable. -Patient was continued on home levothyroxine. 12. Obstructive sleep apnea, chronic. present on admission. Presumed stable -Patient was continued on home CPAP machine 13. History of GERD, chronic. present on admission. Presumed stable. -Patient's home omeprazole converted to pantoprazole Exam Vital Signs (Last) Date Time Temp Pulse Resp B/P Pulse Ox O2 Delivery O2 Flow Rate FiO2 03/23/17 11:50 37.0 100 18 139/71 95 Room Air 03/22/17 20:49 2.00 Exam General: No acute distress, well-developed, well-nourished, appropriately interactive HEENT: Normocephalic, atraumatic. Anicteric sclerae, moist mucosa. Cardiovascular: Regular rate and rhythm with no murmurs, rubs, or gallops appreciated Pulmonary: Lungs grossly clear to auscultation with no crackles or wheezing Abdomen: Bowel tones present. Soft, nontender, nondistended. Extremities: No clubbing, cyanosis, edema, or lymphadenopathy appreciated. Skin: Normal temperature, turgor, and texture; diffuse scarring of left lower extremity with hyperpigmentation, no erythema, warmth or pain to touch. Neurological: Cranial nerves grossly intact. Alert and oriented to person, place and time. Test 03/16/17 15:15 03/16/17 17:00 03/16/17 17:50 03/16/17 21:14 Hold Purple Top Tube Received (Received) Hold Blue Top Tube Received (Received) Pro-B-Type Natriuretic Peptide 1226pg/mL (0-486) Hold [place] Top Tube Received (Received) Urine Legionella pneumophilia Ag Negative (Negative) Lactic Acid Level 1.5mmol/L (0.4-2.0) Urine Color Dark yellow (YELLOW) Urine Appearance Hazy (CLEAR,HAZY) Urine pH 5.5 (5.0-8.0) Urine Specific [place] 1.025 (1.003-1.035) Urine Protein 100mg/dL (NEG,TRACE) Urine Glucose (UA) Negativemg/dL (NEGATIVE) Urine Ketones Tracemg/dL (NEGATIVE) Urine Occult Blood Moderate (NEGATIVE) Urine Nitrite Positive (NEGATIVE) Urine Bilirubin Negative (NEGATIVE) Urine Urobilinogen Normalmg/dL (NORMAL) Urine Leukocyte Esterase Small (NEGATIVE) Urine RBC 3-10/hpf (0-2) Urine WBC 0-5/hpf (0-5) Urine Epithelial Cells Few/hpf (NONE-MOD) Urine Crystals None seen (NONE SEEN) Urine Bacteria Many/hpf (NONE-FEW) Urine Hyaline Casts None/lpf (NONE) Urine Granular Casts None seen (NONE SEEN) Urine Waxy Casts None seen (NONE SEEN) Urine Red Blood Cell Casts None seen (NONE SEEN) Urine White Blood Cell Casts None seen (NONE SEEN) Urine Mucus None seen (None Seen) Urine Trichomonas None seen (NONE SEEN) Urine Yeast None (NONE SEEN) Urinalysis Comment None Urine Culture Reflexed Indicated Test 03/17/17 20:02 03/18/17 20:20 03/21/17 10:30 03/23/17 03:30 Troponin T 0.166ug/L (0.0-0.011) Vancomycin Level Trough < 2.3mcg/mL Procalcitonin 0.32ng/mL (0.00-0.08) White Blood Count 3.4th/mm3 (3.8-10.1) Red Blood Count 3.83mil/mm3 (4.40-5.80) Hemoglobin 10.4g/dL (13.8-17.2) Hematocrit 34.1% (41.0-50.0) Mean Corpuscular Volume 89.0fL (81-100) Mean Corpuscular Hemoglobin 27.2pg (27.0-35.0) Mean Corpuscular Hemoglobin Concent 30.5% (32.0-37.0) Red Cell Distribution Width 16.4% (12.3-15.4) Platelet Count 126bil/L (150-400) Neutrophils (%) (Auto) 65.9% (40-74) Lymphocytes (%) (Auto) 17.2% (14-46) Monocytes (%) (Auto) 10.8% (4-12) Eosinophils (%) (Auto) 4.9% (0-5) Basophils (%) (Auto) 0.6% (0-3) Sodium Level 139mEq/L (134-144) Potassium Level 4.2mEq/L (3.5-5.2) Chloride Level 103mEq/L (97-108) Carbon Dioxide Level 24mmol/L (18-29) Blood Urea Nitrogen 20mg/dL (8-27) Creatinine 0.99mg/dL (0.76-1.27) Estimat Glomerular Filtration Rate 77mL/min (>59) Glucose Level 119mg/dL (60-99) Calcium Level 9.6mg/dL (8.5-10.1) Total Bilirubin 0.3mg/dL (0.0-1.2) Aspartate Amino Transf (AST/SGOT) 25U/L (0-50) Alanine Aminotransferase (ALT/SGPT) 29U/L (0-44) Alkaline Phosphatase 69U/L (25-160) Total Protein 4.9g/dL (6.4-8.4) Albumin 2.6g/dL (3.4-5.0) Microbiology Results 03/16/17 Blood Culture -Positive for E.coli (ESBL promos executive producer) Urine Culture - Positive for E.coli (ESBL promos executive producer) MRSA (PCR) - Positive Viral respiratory PCR- Positive for Rhinovirus/Enterovirus. Strep pneumoniae and Legionella urine antigens- negative Discharge Medications Discharge Medications Albuterol Neb Soln (Albuterol Neb Soln) 2.5 Mg/3 Ml Vial.neb 3 ML INH BID ( Reported) Ascorbate Calcium/Bioflavonoid (Seda-C 500 mg Tablet) 1 Each Tablet 1 EACH PO DAILY (Reported) Aspirin (Aspirin) 81 Mg Tablet 81 MG PO HS (Reported) Calcium Carbonate (Calcium) 600 Mg Tablet 600 MG PO BIDWM (Reported) Cholecalciferol (Vitamin D3) (Vitamin D3) 1,000 Unit Tab.chew 1,000 UNIT PO QAM (Reported) Finasteride (Finasteride) 5 Mg Tablet 5 MG PO QAM (Reported) Fluticasone Propionate (Fluticasone Propionate Nasal) 16 Gm Energy.susp 1 SPRAY NS QAM (Reported) Hydroxychloroquine Sulfate (Plaquenil) 200 Mg Tablet 200 MG PO BID (Reported) Leflunomide (Leflunomide) 20 Mg Tablet 20 MG PO QAM (Reported) Levothyroxine (Levothyroxine) 25 Mcg Tablet 25 MCG PO QAM (Reported) Losartan Potassium (Losartan Potassium) 25 Mg Tablet 25 MG PO QAM (Reported) Magnesium Oxide (Magnesium Oxide) 400 Mg Tablet 800 MG PO HS (Reported) Mycophenolate Mofetil (Mycophenolate Mofetil) 500 Mg Tablet 1,000 MG PO BID ( Reported) Omeprazole (Omeprazole) 20 Mg Capsule.dr 20 MG PO QAM (Reported) Prednisone (PredniSONE) 2.5 Mg Tab 7.5 MG PO DAILY (Reported) Primidone (Primidone) 50 Mg Tablet 50 MG PO HS (Reported) Tamsulosin (Flomax) 0.4 Mg Capsule 0.8 MG PO HS (Reported) Tiotropium Melba (Spiriva) 18 Mcg Cap.w.dev 2 PUFFS INHALATION QAM (Reported) As needed Acetaminophen (Tylenol Arthritis) 650 Mg Tablet.er 1,300 MG PO q8 hours PRN PRN For Pain (Reported) Albuterol HFA (Proair HFA) 8.5 Gm Hfa.aer.ad 1-2 PUFFS INHALATION Q4H PRN PRN For Shortness of Breath (Reported) Nystatin (Nystatin) 1 Each Powder.ea. 1 EACH MC BID PRN PRN RASH/YEAST (Reported ) Followup Plan Follow-up plan Dr. Bebe Bergeron [address] [phone] . Discharge Diet: Heart Healthy Discharge Activity: Outpatient Physical Therapy Patient Instructions Dr. Moreno will be taking over your care at [facility]. The antibiotic infusions will be given at [facility] and you will be on antibiotics until March 31. Followup with your primary care physician, Dr. Bergeron as planned to review hospital stay. Followup with Urology, Dr. Alejandro as needed. . Follow-up Provider: Leelee Bergeron MD Follow-up with PCP in: 1 week Time spent 35 min Attending Statement The patient was seen and examined together with Resident/House-staff on 5/10/17 and I agree with the history, exam and plan as outlined in the note above. Hilda Rangel DO March 23, 2017 15:13 Oswaldo Sargent April 07, 2017 17:12
== END 2017-03-23 14:35 | DRG 871 ==
LOC: SED 15:33 → PCC 18:32
PROVIDERS: ADMIT Internal Medicine; ATTEND Internal Medicine
DX: R78.81 Bacteremia (principal); J12.89 Other viral pneumonia; N39.0 Urinary tract infection, site not specified; I24.8 Other forms of acute ischemic heart disease; I10 Essential (primary) hypertension; E78.5 Hyperlipidemia, unspecified; J44.9 Chronic obstructive pulmonary disease, unspecified; K21.9 Gastro-esophageal reflux disease without esophagitis; E03.9 Hypothyroidism, unspecified; G47.33 Obstructive sleep apnea (adult) (pediatric); M05.10 Rheumatoid lung disease with rheumatoid arthritis of unspecified site; B97.89 Other viral agents as the cause of diseases classified elsewhere; B96.20 Unspecified Escherichia coli [E. coli] as the cause of diseases classified elsewhere; Z51.5 Encounter for palliative care; Z22.322 Carrier or suspected carrier of Methicillin resistant Staphylococcus aureus

== ENCOUNTER 2017-04-10 12:43 | Inpatient (IN) | payer MEDICARE ==
[~2017-04-10] VITALS: Ht 177.8 cm; Wt 90.1 kg
[2017-04-10] VITALS (7 sets, daily range): BP systolic 109–150; BP diastolic 38–73; PULSE 67–103; RESP 13–22; O2SAT 95–98
[~2017-04-10 12:43] MED LIST changes: -LACT1CAP65 PO; +PRD2.5T PO; -PRE10 PO; -PRED-508 PO; +TIOT18CA3 INHALATION; -TIOT4MIS5 IH
[2017-04-10] MEDS ORDERED: ASCO1TAB12 PO (13:10)
[2017-04-10] MEDS ORDERED: LACT1CAP13 PO (13:15)
--- NOTE | 2017-04-10 13:43 | ED.REPORT ---
HPI-Fever Date of Service April 10, 2017 ED Provider: Charli Singletary MD History of Present Illness: Note: [employer] has repeatedly, IT aware Patient is an 81 year old male with a history of COPD, rheumatoid arthritis, peripheral arterial disease and leukocytoclastic vasculitis who presents to the ED via EMS due to vomiting onset this morning. Associated symptoms include fever , chills and cough. The patient states he is short of breath but it has not gotten any worse than his baseline. He denies any pain, dysuria or diarrhea. Per EMS, the staff at [facility] report that the patient has been "going down hill for the past couple of days". Nursing Notes Stated Complaint: FEVER,CHILLS Chief Complaint: FLU/Cold Symptoms Nursing Notes Reviewed: Yes ([employer], reconciled) Allergies: Coded Allergies: ciprofloxacin (Verified Allergy, Intermediate, Leg pain, 04/10/17) bacitracin (Verified Allergy, Unknown, 04/10/17) Advised by doctor to stop using bacitracin neomycin (Verified Allergy, Unknown, 04/10/17) polymyxin B (Verified Allergy, Unknown, 04/10/17) niacin (Verified Adverse Reaction, Severe, Itching and rash, 04/10/17) Uncoded Allergies: DUST (Allergy, Unknown, 12/03/04) Scheduled Albuterol Neb Soln (Albuterol Neb Soln) 2.5 Mg/3 Ml Vial.neb 3 ML INH BID Ascorbate Calcium/Bioflavonoid (Seda-C 500 mg Tablet) 1 Each Tablet 1 EACH PO DAILY Aspirin (Aspirin) 81 Mg Tablet 81 MG PO HS Calcium Carbonate (Calcium) 600 Mg Tablet 600 MG PO BIDWM Cholecalciferol (Vitamin D3) (Vitamin D3) 1,000 Unit Tab.chew 1,000 UNIT PO QAM Finasteride (Finasteride) 5 Mg Tablet 5 MG PO QAM Fluticasone Propionate (Fluticasone Propionate Nasal) 16 Gm [place].susp 1 SPRAY NS QAM Hydroxychloroquine Sulfate (Plaquenil) 200 Mg Tablet 200 MG PO BID Lactobacillus Acidophilus (Acidophilus) 1 Each Capsule 2 EACH PO BID Leflunomide (Leflunomide) 20 Mg Tablet 20 MG PO QAM Levothyroxine (Levothyroxine) 25 Mcg Tablet 25 MCG PO QAM Losartan Potassium (Losartan Potassium) 25 Mg Tablet 25 MG PO QAM Magnesium Oxide (Magnesium Oxide) 400 Mg Tablet 800 MG PO HS Mycophenolate Mofetil (Mycophenolate Mofetil) 500 Mg Tablet 1,000 MG PO BID Omeprazole (Omeprazole) 20 Mg Capsule. 20 MG PO QAM Prednisone (PredniSONE) 2.5 Mg Tab 7.5 MG PO DAILY Primidone (Primidone) 50 Mg Tablet 50 MG PO HS Tamsulosin (Flomax) 0.4 Mg Capsule 0.8 MG PO HS Tiotropium Mitchell (Spiriva) 18 Mcg Cap.w.dev 2 PUFFS INHALATION QAM Scheduled PRN Acetaminophen (Tylenol Arthritis) 650 Mg Tablet.er 1,300 MG PO q8 hours PRN PRN For Pain General Time Seen by MD: 13:18 Chief Complaint Vomiting Hx Obtained From: Patient, EMS Arrived By: Ambulance Onset Occurred: 5 - 8 hours ago Symptom Duration: Since onset Location: : No pain Associated with: Reports: Chills, Cough, non-productive, Denies: Diarrhea Recent Healthcare: Recent doctor visit, Recent hospitalization Past Medical History Past Medical History Notes: Admitted March 16- for ESBL Escherichia coli bacteremia and UTI, and acute viral pneumonia with rhinovirus/enterovirus with positive MRSA screen (finished ertepenem 03/31) Past Medical History 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 He is followed on an every 6 month basis to confirm stability. Rheumatoid arthritis. Bronchiectasis followed by Dr. Orozco. History of dyslipidemia. Vascular stenosis in lower extremities. Actinic keratosis. Leukocytoclastic vasculitis. JOANA on CPAP. Duanes syndrome. skin cancer. History of peripheral arterial disease Leukocytoclastic vasculitis Reports: COPD, GERD, Hyperlipidemia Past Surgical History Shoulder repair Mohs surgery Reports: Cataract surgery, Cholecystectomy Reports: Knee replacement Family History Daughter systemic lupus erythematosus, Rheumatoid arthritis, Fibromyalgia Grandmother diabetes mellitus Sister: fibromyalgia, osteoarthritis, spine degeneration, rheumatoid arthritis Smoking History Never Smoker Social History As of 04/10/17: Comes from [employer] No CODE STATUS/POLST paperwork accompanied the patient, he was just recently admitted and was listed as DO NOT RESUSCITATE/DO NOT INTUBATE during that hospitalization, along with collagen care consultation at that time. Alcohol Use: Denies alcohol use Other Social History: Good social support, , Local resident Ambulatory Status Independent Review of Systems Constitutional: Reports: Chills, Fever Respiratory: Reports: Non-productive cough, Shortness of breath Cardiovascular: Denies: Chest pain GI: Reports: Nausea, Vomiting, Denies: Abdominal pain, Diarrhea Male: Denies Dysuria Complete sys rev & neg: except as marked. Musculoskeletal: Denies: Back pain Physical Exam Initial Vital Signs Vital Signs (First) Date Time Temp Pulse Resp B/P Pulse Ox O2 Delivery O2 Flow Rate FiO2 04/10/17 12:52 39.6 101 13 150/60 97 Nasal Cannula 2 Initial VS: Reviewed, Vital signs abnormal (febrile, tachycardic) General/Constitutional: Awake, Alert Alertness: Positive: Confused seems significantly more confused than described in his admission from a few weeks ago appears fatigued barely able to lift his arms and legs off the bed Neck: Atraumatic, Supple, Full range of motion Respiratory / Chest: Atraumatic, No respiratory distress scattered rhonic in all zaman not tachypneic Cardiovascular: Heart rate NL, Regular rhythm, Heart sounds NL Skin: Atraumatic, Color NL, No rash, Warm, Dry Neurologic: Oriented X3, Speech NL, No motor deficits, No sensory deficits globally weake Head / Eyes: Atraumatic, Normocephalic, PERRL, EOMI Abdomen: Atraumatic, Soft, Non-tender right upper quadrant scar across abdomen no clinic signs of peritonitis Lower Extremity / Pelvis / MS: Atraumatic, Full range of motion, No edema Psychiatric: Affect NL, Mood NL Interpretation & Diagnostics Interpretation & Diagnostics: From recent admit earlier this month: Please see recent admission with ESBL bacteremia and UTI Possible viral panel positive for rhinovirus MRSA screen + Patient completed course of ertapenem 03/31 and Bactroban Lab Results Interpretation Result Diagram: 04/10/17 1335 04/10/17 1335 Test 04/10/17 13:35 04/10/17 15:28 White Blood Count 3.8th/mm3 (3.8-10.1) Red Blood Count 3.76mil/mm3 (4.40-5.80) Hemoglobin 10.3g/dL (13.8-17.2) Hematocrit 33.2% (41.0-50.0) Mean Corpuscular Volume 88.3fL (81-100) Mean Corpuscular Hemoglobin 27.4pg (27.0-35.0) Mean Corpuscular Hemoglobin Concent 31.0% (32.0-37.0) Red Cell Distribution Width 17.6% (12.3-15.4) Platelet Count 116bil/L (150-400) Neutrophils (%) (Auto) 91.8% (40-74) Lymphocytes (%) (Auto) 2.1% (14-46) Monocytes (%) (Auto) 3.7% (4-12) Eosinophils (%) (Auto) 1.6% (0-5) Basophils (%) (Auto) 0.5% (0-3) Sodium Level 135mEq/L (134-144) Potassium Level 4.3mEq/L (3.5-5.2) Chloride Level 102mEq/L (97-108) Carbon Dioxide Level 19mmol/L (18-29) Blood Urea Nitrogen 18mg/dL (8-27) Creatinine 0.94mg/dL (0.76-1.27) Estimat Glomerular Filtration Rate 81mL/min (>59) Glucose Level 132mg/dL (60-99) Lactic Acid Level 1.7mmol/L (0.4-2.0) Calcium Level 8.6mg/dL (8.5-10.1) Total Bilirubin 0.6mg/dL (0.0-1.2) Aspartate Amino Transf (AST/SGOT) 43U/L (0-50) Alanine Aminotransferase (ALT/SGPT) 44U/L (0-44) Alkaline Phosphatase 69U/L (25-160) Troponin T 0.091ug/L (0.0-0.011) Total Protein 5.7g/dL (6.4-8.4) Albumin 2.6g/dL (3.4-5.0) Urine Color Yellow (YELLOW) Urine Appearance Hazy (CLEAR,HAZY) Urine pH 6.0 (5.0-8.0) Urine Specific [place] 1.025 (1.003-1.035) Urine Protein Tracemg/dL (NEG,TRACE) Urine Glucose (UA) Negativemg/dL (NEGATIVE) Urine Ketones Negativemg/dL (NEGATIVE) Urine Occult Blood Small (NEGATIVE) Urine Nitrite Positive (NEGATIVE) Urine Bilirubin Negative (NEGATIVE) Urine Urobilinogen Normalmg/dL (NORMAL) Urine Leukocyte Esterase Moderate (NEGATIVE) Urine RBC 0-2/hpf (0-2) Urine WBC 6-10/hpf (0-5) Urine Epithelial Cells None/hpf (NONE-MOD) Urine Crystals None seen (NONE SEEN) Urine Bacteria Many/hpf (NONE-FEW) Urine Hyaline Casts None/lpf (NONE) Urine Granular Casts None seen (NONE SEEN) Urine Waxy Casts None seen (NONE SEEN) Urine Red Blood Cell Casts None seen (NONE SEEN) Urine White Blood Cell Casts None seen (NONE SEEN) Urine Mucus None seen (None Seen) Urine Trichomonas None seen (NONE SEEN) Urine Yeast None (NONE SEEN) Urinalysis Comment None Urine Culture Reflexed Indicated Lab Results Interpretation: CBC normal CMP normal Troponin elevated, uncertain significance-this is a lower value that any of his recent troponins Blood cultures 2 pending UA abnormal, consistent with UTI UA ECG Interpretation ECG Interpretation: Occasional PACs Q waves inferior, old unchanged from previous EKG from 03/16/17 Time: 13:38 Interpreted by: ED physician Normal ECG Interpretation: Normal rate (96), Normal sinus rhythm X-Ray Chest Interpretation Chest Xray Interpretation: IMPRESSION: Bibasal pulmonary scarring. Otherwise negative chest. Dictated by: Jadon Faustin M.D. on 04/10/2017 at 13:49 Approved by: Jadon Faustin M.D. on 04/10/2017 at 13:50 Interpretation / Wet Read by: Interpret - Radiologist Re-Eval/Medical Decision Med Decision/Clinical Course This is an 81-year-old male recently hospitalized with ESBL Escherichia coli bacteremia and UTI for which treatment with a full course of ertapenem was completed March 31, who now returns from the retirement with fever, and mild delirium. I have attempted to reach the retirement to get her history and what been going on the past several days, and left messages, but are not yet been able to talk to staff who are familiar with the patient's case. The patient is slightly confused, and this appearing somewhat worse compared to the notes from his recent hospitalization. I cannot get him to endorse this specific complaint. He developed fevers and chills this morning, he barely did have nausea and vomiting times one, but he declines any history of abdominal pain or diarrhea. He has a mild cough, and recently had a viral PCR positive for rhinovirus and is on home O2, but does not think the cough is really changed. He does not have any additional complaints, and does not report deepti dysuria. On exam he is febrile, he has got a low-grade tachycardia, and he is pleasantly confused-suggestive mild delirium, but he is not overtly toxic. His oxygen requirements are unchanged from and he left the hospital, he does have scattered rhonchi, but does not have overt infiltrates apparent on chest radiographs. His blood work reveals a normal leukocytosis, normal renal function, but is notable for an elevated troponin-however during his recent hospitalization he had much higher troponins, and this may represent demand ischemia/sepsis or chronic elevation, but is doubtful in terms of an acute coronary syndrome. EKG does not reveal interval change. Blood cultures are drawn. The patient's previous line started been removed. The patient's cath urine however does have markers of infection. The patient was MRSA colony positive during the recent hospitalization, has a recent ESBL UTI, so initial coverage is being initiated with ertapenem most likely pathology of her recurrent ESBL UTI, as well as vancomycin. Infectious disease consults is being requested, they followed him during his recent admission. Nursing isolation contact precautions were ESBL is being requested. And the plan is admission to the hospitalist service. Source of Hx: Old records (attempting to review, the [employer] crashing repeatedly) Re-Evaluation/Progress : Time of Eval: 15:36 Re-Evaluation/Progress Note: Discussed results and plan for admit. The patient understands and agrees to the plan for admit. All questions were addressed. Consultation #1: Requested Call at: 15:19 Note: Tried calling [facility] [place] to discuss patient's history with nurse. Was unable to reach someone so a message was left. Consultation #2: Consulted With: On-call physician (Dr. Melton, ID) Note: Left message for call back to request consultation Consultation #3: Referral / Consult Name: Adelso Maxwell MD Consulted With: Hospitalist Call Returned at: 16:21 Documentum Consultant: Accepts admit Note: Case discussed Counseled Regarding: Diagnosis, Lab results, Need for admission Discharge & Departure Impression: Primary Impression: Fever Fever type: unspecified Qualified Code: R50.9 - Fever, unspecified Additional Impressions: Urinary tract infection Urinary tract infection type: site unspecified Hematuria presence: without hematuria Qualified Code: N39.0 - Urinary tract infection, site not specified ESBL (extended spectrum beta-lactamase) producing bacteria infection MRSA nasal colonization Troponin level elevated Delirium Disposition: ADMITTED TO HOSPITAL Discharge Condition All VS Reviewed: Yes Condition: Stable Referrals: Leelee Bergeron MD (PCP) Karl Attestation Portions of this note were transcribed by Chari Cruz. I, Dr. Singletary personally performed the history, physical exam and medical decision-making; I reviewed and confirmed the accuracy of the information in the transcribed note. Signed by: Karl Robbins, 04/10/17 and 1530 copies to: Leelee Bergeron MD, Matthew F MD April 10, 2017 13:43 Shannon Cruz April 10, 2017 13:52
[2017-04-10 13:48] LABS: BASOPHILS % (AUTO) 0.5 % (0-3); EOSINOPHILS % (AUTO) 1.6 % (0-5); MONOCYTES % (AUTO) 3.7 % (4-12); Mean Corpuscular Hemoglobin 27.4 pg (27.0-35.0); Mean Corpuscular Volume 88.3 fL (81-100); NEUTROPHILS % (AUTO) 91.8 % (40-74); Platelet Count 116 bil/L (150-400)
--- NOTE | 2017-04-10 13:51 | DRSVH ---
PROCEDURE: X-RAY CHEST ONE VIEW, PORTABLE ([id number]) INDICATIONS: fever, shortness of breath TECHNIQUE: One view of the chest was acquired. COMPARISON: [facility], CR, XR CHEST 1VW (PORTABLE), 03/16/2017, 16:07. FINDINGS: Surgical changes and devices: None. Lungs and pleura: No pleural effusions or pneumothorax. Bibasilar scarring otherwise the lungs are c lear. Mediastinum: Mediastinal contours appear normal. Heart size is normal. Bones and chest wall: No suspicious bony lesions. Overlying soft tissues appear unremarkable. IMPRESSION: Bibasal pulmonary scarring. Otherwise negative chest. Dictated by: Jadon Faustin M.D. on 04/10/2017 at 13:49 Approved by: Jadon Faustin M.D. on 04/10/2017 at 13:50
[2017-04-10] MEDS ORDERED: Vancomycin Dose per Pharmacist XX ONE (14:25)
[2017-04-10] MEDS ORDERED: Ertapenem Inj 1,000 MG in 0.9% Sodium Chloride 50 ML IV ONE (14:25)
[2017-04-10] MEDS ORDERED: Vancomycin Inj 1,750 MG in 0.9% Sodium Chloride 500 ML IV ONE (14:30)
[2017-04-10 14:32] LABS: TROPONIN T 0.091 ug/L (0.0-0.011)
[2017-04-10] MEDS ORDERED: Lidocaine 2% 6mL Topical Jelly TOPICAL ONE (14:55)
[2017-04-10 15:45] LABS: APPEARANCE,URINE HAZY (CLEAR,HAZY); COLOR,URINE YELLOW (YELLOW); OCCULT BLOOD,URINE SMALL (NEGATIVE); UROBILINOGEN,URINE NORMAL (NORMAL)
[2017-04-10] MEDS ORDERED: 0.9% Sodium Chloride 1,000 ML IV ONE (16:10)
[2017-04-10] MEDS ORDERED: 0.9% Sodium Chloride 1,000 ML IV SCH (16:14)
[2017-04-10] MEDS ORDERED: Ondansetron 2 mg/mL 2 mL Inj IVPUSH PRN ×2 (16:15→16:25)
[2017-04-10] MEDS ORDERED: Alum-Mag Hydrox-Simeth 30 mL Suspension PO PRN ×2 (16:15→16:25)
[2017-04-10] MEDS ORDERED: Polyethylene Glycol (PEG) 17 Gm Powder PO PRN (16:25)
--- NOTE | 2017-04-10 17:20 | PCM.HPMED ---
Subjective Date of Service April 10, 2017 Primary Provider: Admitting Physician: Adelso Maxwell MD Primary Care Physician: Leelee Bergeron MD Attending Physician: Adelso Maxwell MD Admit Status: From the Emergency Department, Admit to [facility] Team Chief Complaint: 81-year-old man with immunosuppressant therapy and BPH recently discharged after treatment of ESBL Escherichia coli UTI presents with fever, tachycardia and sepsis History of Present Illness: Patient was admitted to [facility] on 03/16/17 with systemic infection of urinary tract origin. He received intravenous ertapenem. He was discharged to [facility] where he continued parenteral antibiotic therapy which finished on 03/31/17. He was reportedly doing well until on day of admission he developed fever, chills and nausea and vomiting. Was transferred to the emergency department where he had mild encephalopathy. The patient reports no localizing symptoms of respiratory or abdominal infection. Feels that his bowels have moved more frequently but no significant diarrhea. Analysis demonstrates pyuria. Review of Systems: 11 systems reviewed. Significant findings as noted in history of present illness. Pertinent negatives include no sinus pain. No headache. No cough. No dysuria no focal pain or swelling of remedies. Allergies Coded Allergies: ciprofloxacin (Verified Allergy, Intermediate, Leg pain, 04/10/17) bacitracin (Verified Allergy, Unknown, 04/10/17) Advised by doctor to stop using bacitracin neomycin (Verified Allergy, Unknown, 04/10/17) polymyxin B (Verified Allergy, Unknown, 04/10/17) niacin (Verified Adverse Reaction, Severe, Itching and rash, 04/10/17) Uncoded Allergies: DUST (Allergy, Unknown, 12/03/04) Home Medications Albuterol nebulizers twice a day Aspirin 81 mg daily Calcium carbonate 600 mg twice a day Cholecalciferol 1000 units daily Finasteride 5 mg daily Fluticasone nasal spray daily Hydroxychloroquine 200 mg by mouth twice a day Leflunomide 20 mg daily Levothyroxine 25 g daily Losartan 25 mg daily Mycophenolate mofetil 1000 mg twice a day Omeprazole 20 mg daily Prednisone 7.5 mg daily Primidone 50 mg Hx Tamsulosin 0.8 mg at bedtime Tiotropium 2 puffs daily PMH Rheumatoid arthritis - on methotrexate, prednisone Monoclonal gammopathy of unknown significance COPD, bronchiectasis Peripheral artery disease Gastroesophageal reflux disease Obstructive sleep apnea, CPAP at night Osteoarthritis Hyperlipidemia Actinic keratosis Vitamin D deficiency History of Shingles Skin cancer (squamous cell carcinoma on head and neck) Surgical History Right shoulder repair Left knee replacement Cholecystectomy Cataract b/l Achilles Family History No family history of immune deficiency Sister with rheumatoid arthritis Social History Occupation: tired Hx Alcohol Use: No Hx Substance Use: No Hx Tobacco Use: No Smoking Status: Never Smoker Living Arrangement: [facility] (currently at [facility]) Exam Vital Signs Vital Sign - Last Date Time Temp Pulse Resp B/P Pulse Ox O2 Delivery O2 Flow Rate FiO2 04/10/17 16:32 36.8 75 18 109/45 96 Nasal Cannula 2 Exam Constitutional: appears weak ; no acute distress; vital signs noted Eyes: sclerae anicteric, no conjunctival pallor, ENMT: ears, nose atraumatic; oral mucosa moist Neck: supple, JVD absent Chest: symmetric, no pain or lesions Resp: auscultation clear, no wheezes, rales or dullness Cardiac: S1, S2, regular, no murmur Abdomen: bowel sounds present, nontender, no organomegaly, no suprapubic or flank tenderness : inspection WNL Musculoskeletal: no joints with acute erythema, swelling Skin and soft tissues: Chronic healing vasculitic rash of left lower extremity; no pitting edema Peripheral pulses: Present dorsalis pedis bilateral Lymphatic: no adenopathy cervical Neurological: Cranial Nerves - face symmetric Reflexes - BJ, KJ symmetric 1+ Motor - 5-/5 strength, normal tone Coordination - normal movement, no tremor Sensory - light touch intact Psych & Mental Status - oriented Lab and Diagnostics Labs Procalcitonin 0.25 (lower than at time of discharge on 03/21/17) Troponin 0.09 (in low range of recent values) Result Diagram: 04/10/17 1335 04/10/17 1335 X-Rays, CTs and MRIs PROCEDURE: X-RAY CHEST ONE VIEW, PORTABLE ([id number]) IMPRESSION: Bibasal pulmonary scarring. Otherwise negative chest. Dictated by: Jadon Faustin M.D. on 04/10/2017 at 13:49 . Assessment & Plan Patient presents with symptomatic sepsis manifest as nausea vomiting, encephalopathy, high fever and tachycardia. No clear localizing signs of infection. Recurrent infection of the urinary tract is of concern # Sepsis, acute. SIRS criteria temperature 39.6, heart rate 101. Leukocyte count is low, but similar to previous values and possibly related to immunosuppressants. No significant lactic or metabolic acidosis. Not severe sepsis at this time. - Monitor vital signs to maintain mean arterial pressure greater than 65 mmHg - Monitor urine output to maintain greater than 0.5 mL/KG/hour - Intravenous normal saline at 100 mL per hour, adjust accordingly - Cultures obtained, broad-spectrum Antibiotics - Infectious disease consult # Acute infection, uncertain source. Urinary tract pyuria and possible recurrent urinary infection. Pyuria may be residual. Previously completed course of ertapenem. Patient is high risk for C. difficile but no diarrhea at present. - Repeat CBC in a.m. - Procalcitonin - Await urine and blood culture - Broad antibiotic coverage to include pseudomonal and staphylococcal coverage at present # Encephalopathy, acute. Likely metabolic related to systemic infection - Supportive measures - Avoid benzodiazepines and anticholinergics # Benign prostatic hypertrophy, chronic. - Continue high dose tamsulosin - Reduced dose if patient becomes hypotensive # Rheumatoid arthritis, chronic. On multiple immunosuppressants. - Continue current therapy - Prednisone 7.5 mg per day adequate at present # Troponin elevation, chronic. Current value is slightly below most of his recent values. No clinical evidence of acute coronary syndrome. - No further workup unless new symptoms Pain Evaluation: Adequate Pain Control VTE Prophylaxis: Sub-Q Enoxaparin Resuscitation Status: DNR/DNI:Do Not Resuscitate/Intubate Time spent 70 minutes Adelso Maxwell MD April 10, 2017 17:20
--- NOTE | 2017-04-10 18:18 | PCM.PHAPRO ---
Progress Date of Service: April 10, 2017 81-year-old man with immunosuppressant therapy and BPH recently discharged after treatment of ESBL Escherichia coli UTI presents with fever, tachycardia and sepsis Vancomycin Management Per Pharmacy Indication: Sepsis/UTI Goal Trough: 15 mg/dL while septic, then 10-15 mg/dL Age: 81 yo Weight: 82.7 kg Labs: WBC: 3.8 SrCr: 0.94 Lactate: 1.7 Est CrCl: ~ 55 mL/min Vitals: HR: 103 BPM on admit and trending down to ~65-70s now BP: Stable RR: 15-22 BPM Temp: Febrile 39.6 on admit Nephrotoxic Risk Factors: Age, peripheral artery disease Additional Abx: Meropenem IV Micro: Blood Cx pending, Urine Cx pending, Hx of ESBL, Hx of MRSA Recommendation: Load: Vancomycin 1750 mg IV x 1 given in ED Maintenance: Vancomycin 1000 mg IV Q12h Trough: Draw on 04/12 @ 1500 Pharmacy to continue to monitor dose and adjust as needed. Thank You, Julia Chandler, Pharm D. Julia Chandler April 10, 2017 18:18
[2017-04-10] MEDS: 0.9% Sodium Chloride 1,000 ML IV SCH (18:29)
[2017-04-10] MEDS: Meropenem Inj 1,000 MG in 0.9% Sodium Chloride 50 ML IV SCH (23:17)
[2017-04-11] VITALS (8 sets, daily range): BP systolic 122–153; BP diastolic 56–85; PULSE 64–90; RESP 18–20; O2SAT 96–99
[2017-04-11] MEDS: 0.9% Sodium Chloride 1,000 ML IV SCH ×2 (02:42→14:10)
[2017-04-11] MEDS ORDERED: Succinylcholine Chloride 20 mg/mL 5 mL Inj IVPUSH ONE (03:47)
[2017-04-11] MEDS ORDERED: Vancomycin 1 Gm/200 mL NS Premix IV SCH (04:00)
[2017-04-11] MEDS: Meropenem Inj 1,000 MG in 0.9% Sodium Chloride 50 ML IV SCH ×3 (06:49→22:26)
[2017-04-11] MEDS ORDERED: Vancomycin Dose per Pharmacist XX SCH (08:30)
--- NOTE | 2017-04-11 14:01 | PCM.PNMED ---
Subjective Date of Service April 11, 2017 Subjective His confusion is largely improved no abdominal pain. No chest pain, cough or shortness of breath. No diarrhea. No overnight events Exam Vital Signs Vital Sign - Last Date Time Temp Pulse Resp B/P Pulse Ox O2 Delivery O2 Flow Rate FiO2 04/11/17 12:46 36.6 74 20 144/67 97 Room Air 04/11/17 08:54 2.00 Intake and Output 04/10/17 04/10/17 04/11/17 Cumulative From/Thru 15:00 23:00 07:00 04/10/17 12:52 - 04/11/17 06:07 Intake Total 1000 ml 885 ml 1885 ml Balance 1000 ml 885 ml 1885 ml IV Total 1000 ml 885 ml 1885 ml Exam Alert and oriented -3, no distress. Fluent speech Anicteric sclera. Lungs are clear with normal rate and effort Heart is regular without murmur gallop or rub Abdomen soft nontender, flat Extremities are free of edema. Skin is free of rash or lesions. IVs and Medications Medications Reviewed: Medications were reviewed in detail Lab and Diagnostics Result Diagram: 04/10/17 1335 04/11/17 0835 X-Rays, CTs and MRIs PROCEDURE: X-RAY CHEST ONE VIEW, PORTABLE ([id number]) IMPRESSION: Bibasal pulmonary scarring. Otherwise negative chest. Dictated by: Jadon Faustin M.D. on 04/10/2017 at 13:49 . Assessment & Plan Patient presents with symptomatic sepsis manifest as nausea vomiting, encephalopathy, high fever and tachycardia. No clear localizing signs of infection. Recurrent infection of the urinary tract is of concern # Sepsis, acute. Improving. SIRS criteria temperature 39.6, heart rate 101. Leukocyte count is low, but similar to previous values and possibly related to immunosuppressants. No significant lactic or metabolic acidosis. Not severe sepsis at this time. - Monitor vital signs to maintain mean arterial pressure greater than 65 mmHg - Monitor urine output to maintain greater than 0.5 mL/KG/hour - Intravenous normal saline at 100 mL per hour, adjust accordingly - Cultures obtained, broad-spectrum Antibiotics - Infectious disease consult #. Gram-negative pavan bacteremia, POA. 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 We will continue meropenem. #Probable pyelonephritis, POA. Improving.. Urinary tract pyuria and possible recurrent urinary infection. Pyuria may be residual. Previously completed course of ertapenem. Patient is high risk for C. difficile but no diarrhea at present. - Repeat CBC in a.m. - Procalcitonin - Await urine and blood culture - Broad antibiotic coverage to include pseudomonal and staphylococcal coverage at present # Encephalopathy, POA and improved.. Likely metabolic related to systemic infection - Supportive measures - Avoid benzodiazepines and anticholinergics # Benign prostatic hypertrophy, chronic. - Continue high dose tamsulosin - Reduced dose if patient becomes hypotensive # Rheumatoid arthritis, chronic and stable. On multiple immunosuppressants. - Continue current therapy - Prednisone 7.5 mg per day adequate at present # Troponin elevation, chronic. Current value is slightly below most of his recent values. No clinical evidence of acute coronary syndrome. - No further workup unless new symptoms VTE Prophylaxis: Sub-Q Enoxaparin Resuscitation Status: DNR/DNI:Do Not Resuscitate/Intubate Tony De Leon MD April 11, 2017 14:01
[2017-04-11] MEDS ORDERED: LEFLUNOMIDE 20 MG PO SCH (15:11)
[2017-04-11] MEDS: Tiotropium 18mcg/Cap 5 Capsule Inhaler Kit INHALATION SCH (16:50)
[2017-04-11] MEDS: predniSONE 5 mg Tablet PO SCH (16:51)
[2017-04-11] MEDS: Pantoprazole 20 mg ER24 Tablet PO SCH (16:51)
[2017-04-11] MEDS: Hydroxychloroqine 200 mg Tablet PO SCH ×2 (16:53→20:50)
[2017-04-11] MEDS: Fluticasone 0.05% 15 Spray/2 Gm 16 Gm Nasal Spray NASAL SCH (16:54)
[2017-04-12] VITALS (9 sets, daily range): BP systolic 106–165; BP diastolic 65–82; PULSE 63–88; RESP 16–22; O2SAT 96–100
[2017-04-12] MEDS: Meropenem Inj 1,000 MG in 0.9% Sodium Chloride 50 ML IV SCH ×3 (05:46→22:33)
[2017-04-12] MEDS: 0.9% Sodium Chloride 1,000 ML IV SCH ×2 (05:47→16:41)
[2017-04-12] MEDS: Pantoprazole 20 mg ER24 Tablet PO SCH (08:40)
[2017-04-12] MEDS: MYCOPHENOLATE 500 MG PO SCH ×2 (08:41→16:40)
[2017-04-12] MEDS: LEFLUNOMIDE 20 MG PO SCH (08:41)
[2017-04-12] MEDS: Hydroxychloroqine 200 mg Tablet PO SCH ×2 (08:41→21:15)
[2017-04-12] MEDS: predniSONE 5 mg Tablet PO SCH (08:42)
[2017-04-12] MEDS: Fluticasone 0.05% 15 Spray/2 Gm 16 Gm Nasal Spray NASAL SCH (08:43)
[2017-04-12] MEDS: Tiotropium 18mcg/Cap 5 Capsule Inhaler Kit INHALATION SCH (08:43)
--- NOTE | 2017-04-12 14:48 | PCM.PNMED ---
Subjective Date of Service April 12, 2017 Subjective He is doing better today. Less weakness. He has walked several times. No fevers or chills. Minimal dysuria. No cough, dyspnea or chest pain. No abdominal pain. No overnight events. Exam Vital Signs Vital Sign - Last Date Time Temp Pulse Resp B/P Pulse Ox O2 Delivery O2 Flow Rate FiO2 04/12/17 11:52 36.6 63 16 106/65 97 Room Air 04/12/17 03:00 2.00 Intake and Output 04/11/17 04/11/17 04/12/17 Cumulative From/Thru 15:00 23:00 07:00 04/10/17 12:52 - 04/12/17 05:47 Intake Total 300 ml 1912 ml 1446 ml 5543 ml Output Total 800 ml 820 ml 850 ml 2470 ml Balance -500 ml 1092 ml 596 ml 3073 ml Intake Oral 300 ml 640 ml 800 ml 1740 ml IV Total 1272 ml 646 ml 3803 ml Output Urine Total 150 ml 220 ml 650 ml 1020 ml Stool Total 250 ml 250 ml Urine/Stool Mix 400 ml 600 ml 200 ml 1200 ml # Voids 1 6 7 # Bowel Movements 4 1 1 6 Exam Alert and oriented -3, no distress. Fluent speech Anicteric sclera. Lungs are clear with normal rate and effort Heart is regular without murmur gallop or rub Abdomen soft nontender, flat Extremities are free of edema. Skin is free of rash or lesions. IVs and Medications Medications Reviewed: Medications were reviewed in detail Lab and Diagnostics Result Diagram: 04/10/17 1335 04/12/17 0330 X-Rays, CTs and MRIs PROCEDURE: X-RAY CHEST ONE VIEW, PORTABLE ([id number]) IMPRESSION: Bibasal pulmonary scarring. Otherwise negative chest. Dictated by: Jadon Faustin M.D. on 04/10/2017 at 13:49 . Assessment & Plan Patient presents with symptomatic sepsis manifest as nausea vomiting, encephalopathy, high fever and tachycardia. No clear localizing signs of infection. Recurrent infection of the urinary tract is of concern # Sepsis, acute. Resolved. SIRS criteria temperature 39.6, heart rate 101. Leukocyte count is low, but similar to previous values and possibly related to immunosuppressants. No significant lactic or metabolic acidosis. Not severe sepsis at this time. - Monitor vital signs to maintain mean arterial pressure greater than 65 mmHg - Monitor urine output to maintain greater than 0.5 mL/KG/hour - Intravenous normal saline at 100 mL per hour, adjust accordingly - Cultures obtained, broad-spectrum Antibiotics - Infectious disease consult #;. ESBL Escherichia coli pyelonephritis, improving on meropenem. #. Gram-negative pavan bacteremia (probable ESBL Escherichia coli septicemia) , POA. 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 We will continue meropenem. # Encephalopathy, POA, resolved.. Likely metabolic related to systemic infection - Supportive measures - Avoid benzodiazepines and anticholinergics # Benign prostatic hypertrophy, chronic. - Continue high dose tamsulosin - Reduced dose if patient becomes hypotensive # Rheumatoid arthritis, chronic and stable. On multiple immunosuppressants. - Continue current therapy - Prednisone 7.5 mg per day adequate at present # Troponin elevation, chronic. Current value is slightly below most of his recent values. No clinical evidence of acute coronary syndrome. - No further workup unless new symptoms 1-2 days. He will likely require ertapenem daily for a total course of 14-21 days. We will discuss with Dr. Melton 1 blood cultures are available. VTE Prophylaxis: Sub-Q Enoxaparin Resuscitation Status: DNR/DNI:Do Not Resuscitate/Intubate Tony De Leon MD April 12, 2017 14:48
[2017-04-12] MEDS ORDERED: Vancomycin Serum Trough XX ONE (15:00)
--- NOTE | 2017-04-12 18:58 | CONS ---
[address] [address] CONSULTATION REPORT PATIENT: TERENCE BRUNO : 1935 MR#: [id number] ADMIT: 04/10/2017 JOB ID: [id number] DATE OF SERVICE: 04/12/[address] Faith for this consult. REASON FOR CONSULT: Recurrent ESBL E. coli bacteremia secondary to complicated urinary tract infection. HISTORY OF THE PRESENT ILLNESS: The patient is a complex, 81-year-old gentleman known to me from a series of admissions and visits over the past year or two. 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 He eventually recovered from that though and was doing reasonably well until early March when he developed weakness, shortness of breath, fever, and GI symptoms. This led to his admission here where he was found to have an extremely high-grade but nonfocal ESBL E. coli bacteremia. During my initial consult back on March 17, I actually felt he did not appear to have a focal infection only to be surprised when all blood culture bottles grew the E. coli. Because of limited treatment options, we provided him with about two weeks of IV ertapenem, which he received in a longterm and which went through March 31. The patient reported that with this therapy at the longterm, he dramatically improved and was feeling quite well and was just about ready to go home to live once again with his , when he developed abruptly on April 10 fevers, chills, nausea, vomiting, mild confusion, and generalized weakness. This was very similar to his presentation back the first week of March, and he once again stated he had no urinary symptoms and specifically denied urgency, frequency, dysuria or hematuria. He had no abdominal symptoms either and denies, at this point, any nausea, vomiting, or diarrhea, and notes that he has no significant cough. This is shockingly similar to his earlier presentation. Since admission here, now almost 48 hours ago, the patient has been receiving appropriate antibiotics and reports he is already much improved and is wondering when he might be able to go home. He has no urinary, pulmonary or GI symptoms of note. PAST MEDICAL HISTORY: 1. Leukocytoclastic vasculitis. 2. Rheumatoid arthritis. 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 4. Monoclonal gammopathy of unknown significance. 5. COPD. 6. Bronchiectasis. 7. Peripheral arterial disease. 8. GERD. 9. Zoster involving the left lower extremity, late 2016. 10. Essential tremor. 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 He is a nonsmoker, nondrinker, and has not traveled recently. FAMILY HISTORY: Negative in first- and second-degree relatives for TB. REVIEW OF SYSTEMS: The patient says he has no significant headache. No visual change. No sore throat. No stiff neck. No cough, chest pain, or shortness of breath. No nausea, vomiting, or diarrhea though he did have the nausea and vomiting on admission. No dysuria, urgency, or frequency at any time. His chronic rash on the lower extremities due to leukocytoclastic vasculitis has not changed and is not bothering him. He can walk short distances, but he is limited by his very severe back pain. Remainder of the review of systems negative. PHYSICAL EXAMINATION: Reveals an afebrile gentleman, very comfortably lying in bed. Note that when he was readmitted on the , his temperature was 39.6. It abruptly came down and it has been normal ever since, now 36.6, as I mentioned. Pulse 63, respiratory rate 16, blood pressure 106/65, saturating well on room air. No acute distress. Conversational. He is smiling and looks fine. His head is without trauma. Eyes without conjunctivitis or scleral icterus. Oral cavity without thrush or pharyngitis. No sinus tenderness. Neck reasonably supple for his age. Lungs are clear except for some crackles in both bases, which is what he had both when I saw him first last year and also earlier this month. Cardiac tones: Regular rate and rhythm without murmur. Abdomen: Soft, nontender, without organomegaly. No Carmichael catheter. No suprapubic tenderness. No evidence of active joint inflammation. He does have an odd, bronze-like macular rash on his lower extremities which has not changed from prior admissions. There is no significant peripheral edema. The patient has intact peripheral pulses in his extremities and they are warm and well perfused. No new skin rashes noted. Remainder of the physical unremarkable. LABORATORIES: Include a white count 3800. Diff shows 91% segs so some degree of left shift. Platelets 116 which has actually been improved. Creatinine 0.94. LFTs normal. Procalcitonin 0.25, which is actually much better than it was during his admission earlier this month and represents a new low for him, at least in the recent past. Urinalysis with 6-10 white cells. No new serologies are available. Two of four blood cultures from admission are growing gram-negative rods which appear to be E. coli. Urine from admission is growing an E. coli and this is ESBL sensitive really only to carbapenem. A MRSA screen of the nares is negative. Chest x-ray shows scarring but no change from prior. IMPRESSION: This is a very strange case of a gentleman with multiple underlying medical problems, who was admitted in early March with a high-grade extended-spectrum beta-lactamase bacteremia. It was never totally clear from where this high-grade bacteremia arose, but we thought it was likely from his urinary tract, as he had previously had a Carmichael catheter and some urologic issues. He was treated appropriately with IV ertapenem and completely felt better at the end of his therapy on March 31. He spent about 10 more days at the longterm and was just getting ready to leave and go home to live with his , when he developed all the symptoms he had back in early March. These included fevers, chills, nausea, malaise and just nonfocal weakness with mild confusion. He is once again admitted, started on appropriate antibiotics, and has once again got completely better. This is a very strange case of a gentleman with recurrent bacteremic extended-spectrum beta-lactamase Escherichia coli infection. RECOMMENDATIONS: 1. We can continue with the meropenem he is currently receiving, though tomorrow will transition to ertapenem for simplicity, but either should be equally effective. 2. No other antibiotics are indicated at this point, as we do have an identified pathogen. 3. I would consult Dr. Alejandro of Urology to evaluate this patient as the patient identifies him as his urologist. It looks like he has two separate episodes of very significant ESBL sepsis arising from his urinary tract, and further investigation may be warranted. 4. The big issue here will be how long to provide the IV ertapenem. Obviously, he got a long course last TIME and then relapsed 10 days later and will likely need an even longer course this time if he is to improve and stay out of the hospital for a period of time. 5. Will continue to follow this complex patient with you. Thank you very much for this consult. JAYLA
[2017-04-13] VITALS (7 sets, daily range): BP systolic 137–154; BP diastolic 65–75; PULSE 68–94; RESP 16–23; O2SAT 96–97
[2017-04-13] MEDS: Pantoprazole 20 mg ER24 Tablet PO SCH (06:04)
[2017-04-13] MEDS: Meropenem Inj 1,000 MG in 0.9% Sodium Chloride 50 ML IV SCH (06:04)
[2017-04-13] MEDS: MYCOPHENOLATE 500 MG PO SCH ×2 (08:26→17:24)
[2017-04-13] MEDS: LEFLUNOMIDE 20 MG PO SCH (08:26)
[2017-04-13] MEDS: predniSONE 5 mg Tablet PO SCH (08:27)
[2017-04-13] MEDS: Tiotropium 18mcg/Cap 5 Capsule Inhaler Kit INHALATION SCH (08:28)
[2017-04-13] MEDS: Fluticasone 0.05% 15 Spray/2 Gm 16 Gm Nasal Spray NASAL SCH (08:28)
[2017-04-13] MEDS: Hydroxychloroqine 200 mg Tablet PO SCH ×2 (08:29→20:41)
--- NOTE | 2017-04-13 09:10 | PROG NOTE ---
[address] [address] PROGRESS NOTE PATIENT: TERENCE BRUNO : 1935 MR#: [id number] ADMIT: 04/10/2017 JOB ID: [id number] DATE: 04/13/2017 REASON FOR FOLLOWUP: Recurrent ESBL bacteremic complicated urinary tract infection. INTERVAL HISTORY: Overnight, the patient says he has felt quite well. He has a bit of nasal stuffiness and congestion this morning, but no significant cough or shortness of breath. No fevers, chills, or sweats. No abdominal pain, flank pain, nausea, or vomiting. PHYSICAL EXAMINATION: Reveals an afebrile gentleman in no acute distress, sitting up, and waiting for breakfast. Temp 36.6, pulse 68, respiratory rate 23, blood pressure 148/75, saturating well on 2 L. He is awake and alert. Eyes without conjunctivitis. Lungs fairly clear, a few crackles at the bases. Cardiac tones without new murmur. No flank tenderness is noted. No abdominal tenderness. LABORATORIES: Include creatinine 0.81. Urinalysis had modest pyuria, but the urine grew an ESBL E. coli as did 2/4 blood cultures from the . This organism is susceptible to amikacin, ertapenem, and probably Zosyn given the ROSSY is less than 4. A recent article in the clinical Infectious Disease journal suggested cefoxitin will not work in these isolates despite apparent susceptibility on these antibiograms. Meropenem and ertapenem are the drugs of choice of course. Zosyn may work if the MICs are low and this organism has ROSSY less than 4 so would likely be efficacious though would require more frequent dosing of ertapenem. IMPRESSION: This is a very strange case of an elderly gentleman with multiple underlying medical problems who was recently treated for a high-grade extended-spectrum beta-lactamases Escherichia coli bacteremia due to urinary tract infection. He finished that therapy March 31 and then did well for about 10 days before representing with more fevers, chills, and again positive extended-spectrum beta-lactamases Escherichia coli from urine and blood given the fact that extended-spectrum beta-lactamases Escherichia coli would be an extraordinary cause of endocarditis. I think by far the most likely cause here would be a recurrent complicated urinary tract infection. RECOMMENDATIONS: 1. The patient is currently on meropenem. This could be changed to ertapenem at any time, so I will go ahead and make that transition today. 2. I would have Dr. Alejandro of Urology see this patient while he is here in the hospital. The patient and his tell me it is virtually impossible for them to make it to Dr. Alejandro's office as an outpatient, and I am concerned that the source of this recurrent infection is likely urologic. 3. Transthoracic echo should be done just to rule out the extremely unlikely possibility of ESBL E. coli endocarditis. 4. This case discussed in person with Dr. De Leon. 5. Course of ertapenem will need to be about 3 weeks at least given that it recurred last time after a prolonged course of treatment. This might be a bit shorter if we found an explanation in the urologic area which could be reversible.
[2017-04-13] MEDS: Ertapenem Inj 1,000 MG in 0.9% Sodium Chloride 50 ML IV SCH (10:19)
--- NOTE | 2017-04-13 10:38 | PCM.PNMED ---
Subjective Date of Service April 13, 2017 Subjective He is doing well today. No fevers or chills. No nausea, abdominal pain or diarrhea. No hematuria, retention or dysuria. He has a dry cough, no shortness of breath. No overnight events. Exam Vital Signs Vital Sign - Last Date Time Temp Pulse Resp B/P Pulse Ox O2 Delivery O2 Flow Rate FiO2 04/13/17 10:21 78 04/13/17 08:12 36.7 18 137/75 97 Room Air 04/12/17 23:46 2.00 Intake and Output 04/12/17 04/12/17 04/13/17 Cumulative From/Thru 15:00 23:00 07:00 04/10/17 12:52 - 04/13/17 06:15 Intake Total 912 ml 1188 ml 7643 ml Output Total 200 ml 1050 ml 3720 ml Balance 712 ml 138 ml 3923 ml Intake Oral 240 ml 520 ml 2500 ml IV Total 672 ml 668 ml 5143 ml Output Urine Total 200 ml 1050 ml 2270 ml Stool Total 250 ml Urine/Stool Mix 1200 ml # Voids 2 9 # Bowel Movements 2 1 9 Exam Alert and oriented -3, no distress. Fluent speech Anicteric sclera. Lungs are clear with normal rate and effort Heart is regular without murmur gallop or rub Abdomen soft nontender, distended Extremities are free of edema. Skin is free of rash or lesions. IVs and Medications Medications Reviewed: Medications were reviewed in detail Lab and Diagnostics Result Diagram: 04/10/17 1335 04/12/17 0330 X-Rays, CTs and MRIs PROCEDURE: X-RAY CHEST ONE VIEW, PORTABLE ([id number]) IMPRESSION: Bibasal pulmonary scarring. Otherwise negative chest. Dictated by: Jadon Faustin M.D. on 04/10/2017 at 13:49 . Assessment & Plan Patient presents with symptomatic sepsis manifest as nausea vomiting, encephalopathy, high fever and tachycardia. No clear localizing signs of infection. Recurrent infection of the urinary tract is of concern # Sepsis, acute. Resolved. SIRS criteria temperature 39.6, heart rate 101. Leukocyte count is low, but similar to previous values and possibly related to immunosuppressants. No significant lactic or metabolic acidosis. Not severe sepsis at this time. - Monitor vital signs to maintain mean arterial pressure greater than 65 mmHg - Monitor urine output to maintain greater than 0.5 mL/KG/hour - Intravenous normal saline at 100 mL per hour, adjust accordingly - Cultures obtained, broad-spectrum Antibiotics - Infectious disease consult #;. ESBL Escherichia coli pyelonephritis, improving on meropenem. Discussed with infectious disease. He will require a total about 3 weeks of ertapenem. We will request a urology consultation with Dr. ruth which today as well. Patient also history of urinary retention and BPH. He had used a catheter for some time and ultimately had a transurethral procedure which improved his symptoms. He had recently been voiding without postmortem residual issues. #. Gram-negative pavan bacteremia ( ESBL Escherichia coli septicemia) , POA. 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 We will continue meropenem. #. BPH with urinary retention, resolved before admission. Patient has been followed by Dr. Alejandro. Dr. Melton requested urology consultation. I discussed situation of recurrent low with ESBL Escherichia coli and Dr. Alejandro who will see the patient. In meantime will order a CT KUB and postvoid residuals 2. # Encephalopathy, POA, resolved.. Likely metabolic related to systemic infection - Supportive measures - Avoid benzodiazepines and anticholinergics # Benign prostatic hypertrophy, chronic. Stable without recent issues. - Continue high dose tamsulosin - Reduced dose if patient becomes hypotensive # Rheumatoid arthritis, chronic and stable. On multiple immunosuppressants. - Continue current therapy - Prednisone 7.5 mg per day adequate at present # Troponin elevation, chronic. Current value is slightly below most of his recent values. No clinical evidence of acute coronary syndrome. - No further workup unless new symptoms 1-2 days. He will likely require ertapenem daily for a total course of 14-21 days. 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 He will be on ertapenem 1 g a day for at least a total of 3 weeks. VTE Prophylaxis: Sub-Q Enoxaparin Resuscitation Status: DNR/DNI:Do Not Resuscitate/Intubate Tony De Leon MD April 13, 2017 10:37
[2017-04-13] MEDS: Albuterol 1.25 mg/3 mL Inhalation Solution NEB SCH ×2 (12:12→19:57)
[2017-04-13] MEDS: 0.9% Sodium Chloride 1,000 ML IV SCH (12:46)
--- NOTE | 2017-04-13 16:41 | DRSVH ---
PROCEDURE: CT KUB ([id number]) INDICATIONS: pyelonephritis TECHNIQUE: Noncontrast 5 mm thick sections acquired from the diaphragms to the symphysis. 5 mm thick coronal an d sagittal reformats were then performed. For radiation dose reduction, the following was used: aut omated exposure control, adjustment of mA and/or kV according to patient size. COMPARISON: [facility], [place], RENAL, 03/18/2017, 10:40. FINDINGS: Image quality: Excellent. Lung bases: Lung bases are abnormal with what appears to be resolving pneumonia and mild pleural thi ckening and small bilateral pleural effusions can be seen. There is no underlying mass lesion. Mild cylindrical bronchiectasis is seen at the inferior posterior margin of each lower lobe. Heart size is normal. Urinary system: Both kidneys are normal in size. No kidney stones. No hydronephrosis or perinephri c fat stranding. Both ureters appear non-dilated throughout their expected courses. Bladder wall th ickness is normal; no calcified bladder stones. Other solid organs: Liver and spleen are normal in size and both contain punctate granulomatous calc ifications. Gallbladder has been previously resected. Pancreas is normal in contours. No adrenal n odules. Peritoneum and bowel: Unenhanced bowel loops demonstrate normal wall thickness and caliber. No free fluid or air. Diverticulosis is present involving the colon with no acute diverticulitis is seen. Nodes and vessels: No retroperitoneal or mesenteric adenopathy by size criteria. Aorta and inferior vena cava are normal in caliber. Abdominal wall: No ventral hernias. Pelvis: No free pelvic fluid. No inguinal hernias or adenopathy. Bones: No suspicious bony lesions. No vertebral body compression fractures. IMPRESSION: Diverticulosis without acute diverticulitis. Bibasilar chronic appearing lung disease wi th mild cylindrical bronchiectasis and areas of chronic alveolar consolidation at the posterior costo phrenic sulcus is present bilaterally with exudative adjacent small pleural effusions. Splenic and hepatic punctate granulomatous calcifications are present, but no acute disease involving these organs is found. Prior cholecystectomy. No hydronephrosis or nephrolithiasis is found. Dictated by: Levi Minaya M.D. on 04/13/2017 at 16:35 Approved by: Levi Minaya M.D. on 04/13/2017 at 16:39
--- NOTE | 2017-04-13 17:39 | DRSVH ---
[facility] [address] [place] [address] Echocardiogram Report Name: TERENCE BRUNO EStudy Date: 04/13/2017 Height: 69 in Hospital Exam Location: [facility] Weight: 188 lb Gender: Male BSA: 2.0 m2 : 1935 Age: 81 yrs BP: 137/75 mmHg Reason For Study: Endocarditis Performed By: Abel Will Referring Physician: NIC HOLLAND Interpretation Summary Limited study. No vegetation seen. Mild mitral regurgitation. Procedure: A two-dimensional transthoracic echocardiogram with color flow and Doppler was performed in limited views only. Comparison is made with the echocardiogram of 03/18/17. The study quality was technically adequate. ECG is mostly uninterpretable. However, some clips suggest underlying sinus rhythm. Left Ventricle: The left ventricle is normal in size. Left ventricular systolic function is normal. Mitral Valve: The mitral valve is normal. There is mild mitral regurgitation. Aortic Valve: The aortic valve is normal in structure and function. No aortic regurgitation is present. Tricuspid Valve: The tricuspid valve is normal. There is a trace or physiologic amount of tricuspid regurgitation. Pulmonic Valve: The pulmonic valve is not well seen, but is grossly normal. Pericardium/ Pleura There is a trivial pericardial effusion noted. MMode/2D Measurements & Calculations AoV Openin.8 cm Electronically signed by: Ryan Burroughs on Reading Physician:04/13/2017 05:38 PM
[2017-04-13] MEDS ORDERED: Albuterol 1.25 mg/3 mL Inhalation Solution NEB SCH (20:30)
[2017-04-14] VITALS (10 sets, daily range): BP systolic 126–165; BP diastolic 66–88; PULSE 63–115; RESP 16–18; O2SAT 95–98
[2017-04-14] MEDS: Pantoprazole 20 mg ER24 Tablet PO SCH (06:42)
[2017-04-14] MEDS: Hydroxychloroqine 200 mg Tablet PO SCH ×2 (07:57→21:37)
[2017-04-14] MEDS: predniSONE 5 mg Tablet PO SCH (07:57)
[2017-04-14] MEDS: MYCOPHENOLATE 500 MG PO SCH ×2 (07:58→17:50)
[2017-04-14] MEDS: Fluticasone 0.05% 15 Spray/2 Gm 16 Gm Nasal Spray NASAL SCH (07:58)
[2017-04-14] MEDS: Tiotropium 18mcg/Cap 5 Capsule Inhaler Kit INHALATION SCH (07:58)
[2017-04-14] MEDS: LEFLUNOMIDE 20 MG PO SCH (07:58)
[2017-04-14] MEDS: Ertapenem Inj 1,000 MG in 0.9% Sodium Chloride 50 ML IV SCH (07:59)
[2017-04-14] MEDS: Albuterol 1.25 mg/3 mL Inhalation Solution NEB SCH ×2 (09:19→19:46)
--- NOTE | 2017-04-14 10:47 | PROG NOTE ---
[address] [address] PROGRESS NOTE PATIENT: TERENCE BRUNO : 1935 MR#: [id number] ADMIT: 04/10/2017 JOB ID: [id number] DATE: 04/14/2017 REASON FOR FOLLOWUP: Recurrent ESBL E. coli bacteremia. INTERVAL HISTORY: Overnight the patient has had no fevers, chills, or sweats. He is not short of breath and has no cough or abdominal pain. He notes that he is having intermittent loose stools. PHYSICAL EXAMINATION: Reveals an afebrile gentleman in no acute distress. Temperature 36.5, pulse 88, respiratory rate 16, blood pressure 165/88. He is saturating well on room air. Examination of the mental status reveals him to be clear. Lungs are quite clear. Cardiac tones without new murmur. Abdomen benign. No skin rashes. DIAGNOSTIC STUDIES: Labs include white count 3800, 92% segs, platelet count 160. Creatinine 0.81. Procalcitonin 0.25. Urinalysis 6-10 white cells. Micro studies include the positive blood and urine growing an ESBL E. coli. The CT scan of the abdomen showed diverticulosis and some lung scarring with bronchiectasis. No abnormalities of the renal system were seen at all. IMPRESSION: This is an odd case of a gentleman with recurrent bacteremic complicated extended spectrum beta lactamase Escherichia coli urinary tract infections. There must be a structural explanation of these recurrent infections and it may relate some benign prostatic hypertrophy, but there is no evidence of any structural abnormality seen on the KUB/CT scan. At this point, I think our best option would be a long course of intravenous ertapenem. RECOMMENDATIONS: 1. We await the urologic workup to see if there is a structural or functional abnormality causing these recurrent bacteremias. 2. We will plan on 3 weeks of IV ertapenem which will take us through April 30. 3. The outpatient management of this patient may be complicated and I have spoken to Dr. De Leon and he can help out this. The patient does not wish to go to a snf through April 30. He would prefer to get IV antibiotics at home, but it is unclear if his insurance or financial situation would allow this. A third option would be for him to go back and forth [place] [facility] [place], but his tells me she is not capable of this. 4. Social work will be involved in these discussions.
--- NOTE | 2017-04-14 13:35 | CONS ---
[address] [address] CONSULTATION REPORT PATIENT: TERENCE BRUNO : 1935 MR#: [id number] ADMIT: 04/10/2017 JOB ID: [id number] DATE OF SERVICE: 04/14/2017 REQUESTING PHYSICIAN: Pipo Melton MD HISTORY: The patient is an 81-year-old, relatively frail gentleman with multiple comorbidities, on chronic prednisone immunosuppression, history of urinary retention. He is an established patient of mine because of his severe pulmonary compromise. Urinary retention was managed in the outpatient setting via transurethral microwave thermotherapy x2 which led to complete resolution of urinary retention. He was admitted on March 16, 2017, at [facility] and was diagnosed and treated for ESBL E. coli. He continued on ertapenem through March 31 at [facility]. He then presented again to [facility] Department on April 10, 2017 with mild encephalopathy, confusion. One blood culture is again growing ESBL E. coli as did the urine culture. He has been on ertapenem since admission. Renal function has been stable at 0.94. He has responded well once again clinically. Urology consultation requested by Dr. Tony De Leon and Dr. Pipo Melton. Allergies, past medical history, surgical, social, family, and review of systems are otherwise unchanged and reflected accurately per my understanding in the admission history and physical examination by Dr. Adelso Maxwell. OBJECTIVE: Afebrile with oral temperature 36.5, pulse 80, respiration 18, blood pressure 157/75. He sitting upright in bed, finishing his lunch and drinking his copy, awake and alert. He has no specific complaints. Examination not repeated. DATABASE: CT KUB from April 13, 2017 is reviewed and demonstrates normal kidneys in upper tracts bilaterally and a nondistended bladder. No urinary tract stones or obstruction or fluid collections. 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 If in turn this tissue becomes colonized/infected, it could represent a recurrent nidus of infection. PLAN: I think at this point options would include extended treatment course with ertapenem intravenously with or without transurethral resection of the prostate. Given his extensive comorbidities and fragile pulmonary status, I would opt for trial of extended intravenous therapy alone. In the event that proves unsuccessful in ridding him of this bacteria, then we could discuss multispecialty level indications and attendant risks of transurethral resection of the prostate which I would be most comfortable having very close medical and/or pulmonary supervision in the perioperative period. He has scheduled followup in my office. I will happily see him earlier as needed depending upon how his clinical course proceeds.
[2017-04-14] MEDS: 0.9% Sodium Chloride 1,000 ML IV SCH (14:20)
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
[2017-04-15] VITALS (7 sets, daily range): BP systolic 142–185; BP diastolic 72–85; PULSE 71–93; RESP 16–22; O2SAT 94–98
[2017-04-15] MEDS: Albuterol 1.25 mg/3 mL Inhalation Solution NEB SCH (08:22)
[2017-04-15] MEDS: Ertapenem Inj 1,000 MG in 0.9% Sodium Chloride 50 ML IV SCH (09:07)
[2017-04-15] MEDS: Pantoprazole 20 mg ER24 Tablet PO SCH (09:09)
[2017-04-15] MEDS: predniSONE 5 mg Tablet PO SCH (09:09)
[2017-04-15] MEDS: Hydroxychloroqine 200 mg Tablet PO SCH (09:09)
[2017-04-15] MEDS: Tiotropium 18mcg/Cap 5 Capsule Inhaler Kit INHALATION SCH (09:10)
[2017-04-15] MEDS: Fluticasone 0.05% 15 Spray/2 Gm 16 Gm Nasal Spray NASAL SCH (09:10)
[2017-04-15] MEDS: MYCOPHENOLATE 500 MG PO SCH (09:11)
[2017-04-15] MEDS: LEFLUNOMIDE 20 MG PO SCH (09:11)
--- NOTE | 2017-04-15 09:59 | PROG NOTE ---
[address] [address] PROGRESS NOTE PATIENT: TERENCE BRUNO : 1935 MR#: [id number] ADMIT: 04/10/2017 JOB ID: [id number] DATE: 04/15/2017 INFECTIOUS DISEASE FOLLOW UP NOTE: REASON FOR FOLLOWUP: Recurrent ESBL E. coli bacteremia of urinary origin. INTERVAL HISTORY: Overnight the patient has been somewhat more wheezy than at baseline. Recall that he does have COPD. He states he has not had a productive cough, just increased wheezing in the past few hours. No fevers, no chills, no sweats, no nausea, vomiting or diarrhea. He has had some bowel movements and is gratified that his constipation has improved. Otherwise he feels relatively well and wants to receive his antibiotics at home. PHYSICAL EXAMINATION: Reveals an afebrile gentleman, temperature 36.4, pulse 77, respiratory rate 18, blood pressure 142/82. He is saturating well on a CPAP. He is awake and alert. Oral cavity: Dry mucous membranes. Lungs with diffuse bilateral wheezing, more heard in the lower lobes and this is new since yesterday. His abdomen is soft and nontender. He does not have a Carmichael catheter and he looks overall relatively well except he perhaps is slightly more short of breath. No new skin rashes noted. LABORATORIES: Have not been updated for a couple days. His last creatinine was 0.82 two days ago. Recall the urine and blood both grew the ESBL E. coli which was a relapse of a prior similar infection. Urology saw the patient yesterday and Dr. Alejandro stated that he believed that his recurrent urosepsis is preceding from devitalized areas within his prostate. Given the hazards of proceeding with a TURP or some similar procedure to resolve this nidus of infection, he recommended a very long course of antibiotics with conservative followup and I agree. IMPRESSION: 1. Recurrent urinary source ESBL E. coli bacteremia likely secondary to prostatic disease. As was discussed in yesterday's note, this patient should receive IV ertapenem through April 30. Following that, I would place the patient on life long fosfomycin prophylaxis with a 3 g dose of oral fosfomycin every two weeks indefinitely thereafter to prevent this from recurring. 2. I have written home IV infusion orders and this would include IV ertapenem through April 30 with weekly labs to include CBC and CMP. 3. Because the patient's has tremendous difficulties in transporting him, he can see me again on May 04, and at that time, I plan to institute the fosfomycin indefinite prophylaxis.
--- NOTE | 2017-04-15 11:18 | PCM.DIMED ---
Discharge Instructions Date of Service Apr 15, 2017 Dates of Hospitalization April 10, 2017 at 16:54 Discharge Diagnosis Discharge Diagnosis 1. Sepsis, acute. Resolved. 2;. ESBL Escherichia coli pyelonephritis, 3 Gram-negative pavan bacteremia ( ESBL Escherichia coli septicemia) , POA. 4. Encephalopathy, POA 5. BPH 6. Rheumatoid arthritis, chronic and stable. 7. Troponin elevation, chronic. 8. COPD 9. Chronic Respiratory Failure 10. Peripheral artery disease 11. Obstructive sleep apnea, CPAP at night Diet Discharge Diet: No restrictions, Low fat, Low Sodium, Heart Healthy Activity Discharge Activity: No restrictions Patient Instructions Patient Instructions Daily antibiotics infusion and follow-up with infectious disease Dr. Melton on 05/04/2017 Follow-up with PCP in: 1 week (primary care doctor) Follow-up in: 3 weeks (infectious diseases: Dr. Geronimo Foss ) Bunny Hernandez MD Apr 15, 2017 11:18
--- NOTE | 2017-04-15 11:32 | PCM.DIMED ---
Discharge Instructions Date of Service Apr 15, 2017 Dates of Hospitalization April 10, 2017 at 16:54 Discharge Diagnosis Discharge Diagnosis 1. Sepsis, acute. Resolved. 2;. ESBL Escherichia coli pyelonephritis, 3 Gram-negative pavan bacteremia ( ESBL Escherichia coli septicemia) , POA. 4. Encephalopathy, POA 5. BPH 6. Rheumatoid arthritis, chronic and stable. 7. Troponin elevation, chronic. 8. COPD 9. Chronic Respiratory Failure 10. Peripheral artery disease 11. Obstructive sleep apnea, CPAP at night Diet Discharge Diet: No restrictions, Low fat, Low Sodium, Heart Healthy Activity Discharge Activity: No restrictions Patient Instructions Patient Instructions Daily antibiotics infusion to be managed by option care and follow-up with infectious disease Dr. Melton on 05/04/2017 Follow-up plan Home health for physical therapy and nursing 2-3 times a week Follow-up with PCP in: 1 week (primary care doctor) Follow-up in: 3 weeks (infectious diseases: Dr. Geronimo Foss ) Bunny Hernandez MD Apr 15, 2017 11:32
--- NOTE | 2017-04-15 11:44 | PCM.DC.MED ---
Discharge Summary Date of Service Apr 15, 2017 Dates of Hospitalization Date of Hospital Admission April 10, 2017 at 16:54 Date of Discharge: Apr 15, 2017 Providers: Admitting Physician: Adelso Maxwell MD Primary Care Physician: Leelee Bergeron MD Attending Physician: Adelso Maxwell MD Diagnosis at Time of Discharge Diagnosis at Time of Discharge 1. Sepsis, acute. Resolved. 2;. ESBL Escherichia coli pyelonephritis, 3 Gram-negative pavan bacteremia ( ESBL Escherichia coli septicemia) , POA. 4. Encephalopathy, POA 5. BPH 6. Rheumatoid arthritis, chronic and stable. 7. Troponin elevation, chronic. 8. COPD 9. Chronic Respiratory Failure 10. Peripheral artery disease 11. Obstructive sleep apnea, CPAP at night Consultations Urology : Recommended IV antibiotics . Possible TURP if that fails but patient is too frail for that at this time Infectious Disease : Ertapenem for 3 weeks and outpatient follow up . Procedures XRay, CTs & MRIs PROCEDURE: X-RAY CHEST ONE VIEW, PORTABLE ([id number]) IMPRESSION: Bibasal pulmonary scarring. Otherwise negative chest. Dictated by: Jadon Faustin M.D. on 04/10/2017 at 13:49 . Brief History Patient was admitted to [facility] on 03/16/17 with systemic infection of urinary tract origin. He received intravenous ertapenem. He was discharged to [facility] where he continued parenteral antibiotic therapy which finished on 03/31/17. He was reportedly doing well until on day of admission he developed fever, chills and nausea and vomiting. Was transferred to the emergency department where he had mild encephalopathy. The patient reports no localizing symptoms of respiratory or abdominal infection. Feels that his bowels have moved more frequently but no significant diarrhea. Analysis demonstrates pyuria. Hospital Course Patient presents with symptomatic sepsis manifest as nausea vomiting, encephalopathy, high fever and tachycardia. No clear localizing signs of infection. Recurrent infection of the urinary tract is of concern 1. Sepsis, acute. Resolved. Hemodynamically and clinically stable. Continue current antibiotics 2;. ESBL Escherichia coli pyelonephritis, improving on meropenem. Seen by infectious diseases patient will require 3 week off ertapenem, to be completed on April 30. Patient was seen in consultation by urology, he has a history of BPH but the TURP is a risky thing at this time, given this patient for general cardiopulmonary status and advanced age. The procedure has been deferred for now pending how he does with the trial of antibiotics. 3 Gram-negative pavan bacteremia ( ESBL Escherichia coli septicemia) , POA. As above 4. Encephalopathy, POA, resolved.. Likely metabolic related to systemic infection - Supportive measures - Avoid benzodiazepines and anticholinergics 5. BPH: Not a good candidate for TURP at this time - Continue high dose tamsulosin 6. Rheumatoid arthritis, chronic and stable. On multiple immunosuppressants. - Continue current therapy - Prednisone 7.5 mg per day adequate at present 7. Troponin elevation, chronic. Current value is slightly below most of his recent values. No clinical evidence of acute coronary syndrome.No angina Patient is discharged home instable condition with home health and home pt. He is very contious about his declining health and complexity of his multiple medical problems. He will follow up with Dr Melton on the 04 of May after completing IV antibiotics . as outpatient within 2-4 weeks . Patient is at very high risk for re-admission Exam Vital Signs (Last) Date Time Temp Pulse Resp B/P Pulse Ox O2 Delivery O2 Flow Rate FiO2 04/15/17 08:23 75 18 97 Room Air 04/15/17 07:45 36.7 168/80 04/15/17 03:13 2.00 Exam Gen : Chronically ill-appearing. NAD HEENT : Sclera is anicteric Neck: Supple, no JVD, trachea is midline , no cervical lymphadenopathy Chest: Normal respiratory effort Lung: Decreased air entry B/L. Mild expiratory wheeze Heart: S1-S2 regular rate and rhythm, no gallop Abdomen: Benign. Bowel sounds normal quadrant Ext : No edema, no cyanosis, co calf tenderness Neuro: Grossly non focal . AAO x 3 Test 04/10/17 13:35 04/10/17 15:28 04/12/17 03:30 White Blood Count 3.8th/mm3 (3.8-10.1) Red Blood Count 3.76mil/mm3 (4.40-5.80) Hemoglobin 10.3g/dL (13.8-17.2) Hematocrit 33.2% (41.0-50.0) Mean Corpuscular Volume 88.3fL (81-100) Mean Corpuscular Hemoglobin 27.4pg (27.0-35.0) Mean Corpuscular Hemoglobin Concent 31.0% (32.0-37.0) Red Cell Distribution Width 17.6% (12.3-15.4) Platelet Count 116bil/L (150-400) Neutrophils (%) (Auto) 91.8% (40-74) Lymphocytes (%) (Auto) 2.1% (14-46) Monocytes (%) (Auto) 3.7% (4-12) Eosinophils (%) (Auto) 1.6% (0-5) Basophils (%) (Auto) 0.5% (0-3) Sodium Level 135mEq/L (134-144) Potassium Level 4.3mEq/L (3.5-5.2) Chloride Level 102mEq/L (97-108) Carbon Dioxide Level 19mmol/L (18-29) Blood Urea Nitrogen 18mg/dL (8-27) Estimat Glomerular Filtration Rate 81mL/min (>59) Glucose Level 132mg/dL (60-99) Lactic Acid Level 1.7mmol/L (0.4-2.0) Calcium Level 8.6mg/dL (8.5-10.1) Total Bilirubin 0.6mg/dL (0.0-1.2) Aspartate Amino Transf (AST/SGOT) 43U/L (0-50) Alanine Aminotransferase (ALT/SGPT) 44U/L (0-44) Alkaline Phosphatase 69U/L (25-160) Troponin T 0.091ug/L (0.0-0.011) Total Protein 5.7g/dL (6.4-8.4) Albumin 2.6g/dL (3.4-5.0) Procalcitonin 0.25ng/mL (0.00-0.08) Urine Color Yellow (YELLOW) Urine Appearance Hazy (CLEAR,HAZY) Urine pH 6.0 (5.0-8.0) Urine Specific [place] 1.025 (1.003-1.035) Urine Protein Tracemg/dL (NEG,TRACE) Urine Glucose (UA) Negativemg/dL (NEGATIVE) Urine Ketones Negativemg/dL (NEGATIVE) Urine Occult Blood Small (NEGATIVE) Urine Nitrite Positive (NEGATIVE) Urine Bilirubin Negative (NEGATIVE) Urine Urobilinogen Normalmg/dL (NORMAL) Urine Leukocyte Esterase Moderate (NEGATIVE) Urine RBC 0-2/hpf (0-2) Urine WBC 6-10/hpf (0-5) Urine Epithelial Cells None/hpf (NONE-MOD) Urine Crystals None seen (NONE SEEN) Urine Bacteria Many/hpf (NONE-FEW) Urine Hyaline Casts None/lpf (NONE) Urine Granular Casts None seen (NONE SEEN) Urine Waxy Casts None seen (NONE SEEN) Urine Red Blood Cell Casts None seen (NONE SEEN) Urine White Blood Cell Casts None seen (NONE SEEN) Urine Mucus None seen (None Seen) Urine Trichomonas None seen (NONE SEEN) Urine Yeast None (NONE SEEN) Urinalysis Comment None Urine Culture Reflexed Indicated Creatinine 0.81mg/dL (0.76-1.27) Discharge Medications Discharge Medications Albuterol Neb Soln (Albuterol Neb Soln) 2.5 Mg/3 Ml Vial.neb 3 ML INH BID ( Reported) Ascorbate Calcium/Bioflavonoid (Seda-C 500 mg Tablet) 1 Each Tablet 1 EACH PO DAILY (Reported) Aspirin (Aspirin) 81 Mg Tablet 81 MG PO HS (Reported) Calcium Carbonate (Calcium) 600 Mg Tablet 600 MG PO BIDWM (Reported) Cholecalciferol (Vitamin D3) (Vitamin D3) 1,000 Unit Tab.chew 1,000 UNIT PO QAM (Reported) Finasteride (Finasteride) 5 Mg Tablet 5 MG PO QAM (Reported) Fluticasone Propionate (Fluticasone Propionate Nasal) 16 Gm Cornucopia.susp 1 SPRAY NS QAM (Reported) Hydroxychloroquine Sulfate (Plaquenil) 200 Mg Tablet 200 MG PO BID (Reported) Lactobacillus Acidophilus (Acidophilus) 1 Each Capsule 2 EACH PO BID (Reported) Leflunomide (Leflunomide) 20 Mg Tablet 20 MG PO QAM (Reported) Levothyroxine (Levothyroxine) 25 Mcg Tablet 25 MCG PO QAM (Reported) Losartan Potassium (Losartan Potassium) 25 Mg Tablet 25 MG PO QAM (Reported) Magnesium Oxide (Magnesium Oxide) 400 Mg Tablet 800 MG PO HS (Reported) Mycophenolate Mofetil (Mycophenolate Mofetil) 500 Mg Tablet 1,000 MG PO BID ( Reported) Omeprazole (Omeprazole) 20 Mg Capsule.dr 20 MG PO QAM (Reported) Prednisone (PredniSONE) 2.5 Mg Tab 7.5 MG PO DAILY (Reported) Primidone (Primidone) 50 Mg Tablet 50 MG PO HS (Reported) Tamsulosin (Flomax) 0.4 Mg Capsule 0.8 MG PO HS (Reported) Tiotropium [place] (Spiriva) 18 Mcg Cap.w.dev 2 PUFFS INHALATION QAM (Reported) As needed Acetaminophen (Tylenol Arthritis) 650 Mg Tablet.er 1,300 MG PO q8 hours PRN PRN For Pain (Reported) Followup Plan Follow-up plan Home health for physical therapy and nursing 2-3 times a week Discharge Diet: No restrictions, Low fat, Low Sodium, Heart Healthy Discharge Activity: No restrictions Patient Instructions Daily antibiotics infusion to be managed by option care and follow-up with infectious disease Dr. Melton on 05/04/2017 Follow-up with PCP in: 1 week (primary care doctor) Follow-up in: 3 weeks (infectious diseases: Dr. Geronimo Foss ) Time spent 35 minutes Bunny Hernandez MD Apr 15, 2017 11:44
== END 2017-04-15 16:02 | disposition home health service (06) | DRG 871 ==
LOC: SED 12:43 → EDBD 12:43 → PCC 16:54
PROVIDERS: ADMIT Internal Medicine; ATTEND Internal Medicine
DX: A41.51 Sepsis due to Escherichia coli [E. coli] (principal); G93.41 Metabolic encephalopathy; N12 Tubulo-interstitial nephritis, not specified as acute or chronic; Z16.12 Extended spectrum beta lactamase (ESBL) resistance; N40.0 Benign prostatic hyperplasia without lower urinary tract symptoms; J44.9 Chronic obstructive pulmonary disease, unspecified; I73.9 Peripheral vascular disease, unspecified; G47.33 Obstructive sleep apnea (adult) (pediatric); K21.9 Gastro-esophageal reflux disease without esophagitis; E78.5 Hyperlipidemia, unspecified; Z66 Do not resuscitate; M05.10 Rheumatoid lung disease with rheumatoid arthritis of unspecified site